=== PATIENT | male | born 1945 | race Caucasian/White ===

== ENCOUNTER → 2016-10-09 | Outpatient (REF) | payer OTHER, MEDICARE, BC ==
[~2016-10-09] MED LIST: /DULO30CA OR; /OXYC15TA OR; /WARF4TA OR; ALPR0.5T3 OR; ASPI81TA83 OR; B12 OR; CARV3.12 PO; COZA50TA18 OR; DOCU10ELUD PO; ENDO7.5T7 PO; ENDOCET OR; GABA300C2 PO; GABA600T3 OR; HYDR25TA6 OR; HYDR4TAB PO; IRON28TA OR; KLOR10TA OR; LIDO5DIS EX; LYRI75CA PO; METO50TA4 OR; MORPHINE IR PO; MULTIVIT OR; MULTIVIT PO; NEUR100C OR; OPAN10TA16 OR; OXCA150T OR; OXYC-208 PO; OXYC10TA12 OR; OXYC15TA11 PO; PERC7.5T12 PO; POTA20TA OR; SERT50TA2 OR; TIZA2CAP3 PO; TPS PAIN TOP; TPS cream TD; TRAM50TA2 OR; ULTR300T OR; VICO5TAB OR; VIT D 2000 OR; VITA100T5 OR; VITAD1000T PO; VYTO10TA5 OR; WARF1TAB OR; WARFPOW3 OR; [UNRECOGNIZED DRUG - CODE] PO; metroprolol OR
[2016-10-09 15:54] LABS: INR 2.81
== END | disposition home or self-care (01) ==
LOC: M LAB REF 15:28
PROVIDERS: ATTEND Internal Medicine Cardiovascular Disease
DX: I35.9 Nonrheumatic aortic valve disorder, unspecified (principal); Z79.01 Long term (current) use of anticoagulants

== ENCOUNTER → 2016-10-15 | Outpatient (REF) | payer OTHER, MEDICARE, BC ==
[2016-10-15 15:39] LABS: ALBUMIN 3.8 GM/DL (3.2-5.2); ALBUMIN/GLOBULIN RATIO 1.36 (1.00-1.93); ALKALINE PHOSPHATASE 89 U/L (45-117); ALT/SGPT 26 U/L (12-78); ANION GAP 6 MEQ/L (8-16); AST/SGOT 25 U/L (15-37); BILIRUBIN,TOTAL 0.5 MG/DL (0.2-1.0); BLOOD UREA NITROGEN 19 MG/DL (7-18); CALCIUM LEVEL 8.6 MG/DL (8.8-10.2); CARBON DIOXIDE LEVEL 33 MEQ/L (21-32); CHLORIDE LEVEL 104 MEQ/L (98-107); CHOLESTEROL LEVEL 113 MG/DL (<200); CREATININE FOR GFR 1.21 MG/DL (0.70-1.30); GLOMERULAR FILTRATION RATE > 60.0 (>42); GLUCOSE, FASTING 86 MG/DL (83-110); SODIUM LEVEL 143 MEQ/L (136-145); TOTAL PROTEIN 6.6 GM/DL (6.4-8.2); TRIGLYCERIDES LEVEL 110 MG/DL (<150)
[2016-10-15 15:48] LABS: BASO # 0.1 K/mm3 (0.0-0.2); BASO % 1.4 % (0.0-1.0); EOS # 0.4 K/mm3 (0.0-0.50); LARGE UNSTAINED CELL # 0.2 K/mm3 (0.0-0.4); LARGE UNSTAINED CELL % 2.1 % (0.0-4.0); LYMPH # 1.6 K/mm3 (1.5-4.5); LYMPH % 19.2 % (24.0-44.0); MEAN CORPUSCULAR HEMOGLOBIN 27.6 pg (27.0-33.0); MEAN CORPUSCULAR HGB CONC 32.9 g/dl (32.0-36.5); MONO # 0.6 K/mm3 (0.0-0.8); MONO % 8.3 % (0.0-5.0); NEUTROPHILS # 4.6 K/mm3 (1.8-7.7); PLATELET COUNT, AUTOMATED 167 k/mm3 (150-450); RED CELL DISTRIBUTION WIDTH 15.3 % (11.5-14.5); WHITE BLOOD COUNT 7.3 K/mm3 (4.0-10.0)
== END | disposition home or self-care (01) ==
LOC: M SFHCPLAZ 09:58
PROVIDERS: ATTEND Family Medicine
DX: N18.3 Chronic kidney disease, stage 3 (moderate) (principal); R73.01 Impaired fasting glucose; E55.9 Vitamin D deficiency, unspecified

== ENCOUNTER → 2016-11-13 | Outpatient (REF) | payer OTHER, MEDICARE, BC ==
[2016-11-13 15:59] LABS: INR 2.62
== END ==
LOC: M LAB REF 15:31
PROVIDERS: ATTEND Internal Medicine Cardiovascular Disease

== ENCOUNTER 2016-12-12 14:27 | Outpatient (RCR) | payer OTHER, MEDICARE, BC | END 2016-12-13 | LOC: M PT 14:27 | PROVIDERS: ATTEND Family Medicine | DX: Z51.89 Encounter for other specified aftercare (principal); B02.29 Other postherpetic nervous system involvement | CPT/HCPCS: 97010; 97110; 97161; G0283; G8984; G8985 ==

== ENCOUNTER 2016-12-15 10:28 | Emergency (ER) | payer BC, OTHER, MEDICARE ==
[~2016-12-15] VITALS: Ht 170.2 cm; Wt 86.2 kg
[2016-12-15] MEDS ORDERED: AMBI5TAB PO (10:41)
[2016-12-15] MEDS ORDERED: TUMS500C PO (10:41)
[2016-12-15] MEDS ORDERED: ALPR2TAB3 PO (10:41)
[2016-12-15] MEDS ORDERED: NS 500 ML IV ONE (11:30)
[2016-12-15 11:49] LABS: BASO # 0.1 K/mm3 (0.0-0.2); BASO % 0.6 % (0.0-1.0); EOS # 0.4 K/mm3 (0.0-0.50); EOS % 4.3 % (0.0-3.0); LARGE UNSTAINED CELL # 0.1 K/mm3 (0.0-0.4); LARGE UNSTAINED CELL % 1.3 % (0.0-4.0); LYMPH # 1.8 K/mm3 (1.5-4.5); LYMPH % 18.5 % (24.0-44.0); MEAN CORPUSCULAR HEMOGLOBIN 28.1 pg (27.0-33.0); MEAN CORPUSCULAR HGB CONC 33.6 g/dl (32.0-36.5); MEAN CORPUSCULAR VOLUME 83.8 fl (80.0-96.0); MONO # 0.6 K/mm3 (0.0-0.8); NEUTROPHILS # 6.1 K/mm3 (1.8-7.7); NEUTROPHILS % 68.2 % (36.0-66.0); PLATELET COUNT, AUTOMATED 188 k/mm3 (150-450); RED CELL DISTRIBUTION WIDTH 14.4 % (11.5-14.5)
[2016-12-15 11:55] LABS: INR 2.68
[2016-12-15 12:08] LABS: ALBUMIN 3.8 GM/DL (3.2-5.2); ALKALINE PHOSPHATASE 96 U/L (45-117); ALT/SGPT 25 U/L (12-78); ANION GAP 3 MEQ/L (8-16); AST/SGOT 27 U/L (15-37); BILIRUBIN,DIRECT 0.1 MG/DL (0.0-0.2); BILIRUBIN,TOTAL 0.6 MG/DL (0.2-1.0); BLOOD UREA NITROGEN 18 MG/DL (7-18); CALCIUM LEVEL 8.5 MG/DL (8.8-10.2); CARBON DIOXIDE LEVEL 34 MEQ/L (21-32); CHLORIDE LEVEL 102 MEQ/L (98-107); CREATININE FOR GFR 1.23 MG/DL (0.70-1.30); GLOMERULAR FILTRATION RATE > 60.0 (>42); GLUCOSE, FASTING 102 MG/DL (83-110); POTASSIUM SERUM 3.9 MEQ/L (3.5-5.1); SODIUM LEVEL 139 MEQ/L (136-145); TOTAL PROTEIN 7.6 GM/DL (6.4-8.2)
[2016-12-15] MEDS ORDERED: ISOVUE-370 76% 100ML VIAL (Q9967) As Ordered ONE (12:21)
--- NOTE | 2016-12-15 13:15 | REP ---
Clinical: Diffuse abdominal pain. Technique: Axial contrast enhanced images from the lung bases to the pubic symphysis using 100 ml Isovue 370 intravenous contrast material with coronal and sagittal re-formations. Findings: Lung bases demonstrate mild chronic changes and bronchiectasis. Liver, spleen, pancreas, bilateral adrenal glands and kidneys are essentially normal. Subcentimeter hepatic and 1 cm left renal simple cysts identified. Cholelithiasis noted without CT evidence for acute cholecystitis. The enteric system is without obstruction or acute inflammatory process. Few scattered sigmoid diverticula noted without acute diverticulitis. Normal terminal ileum and appendix identified in the right lower quadrant. Pelvis demonstrates normal bladder and prominent prostate gland. A solitary 1.8 cm left pelvic sidewall lymph node is suggested (image 114). No ascites. No further significant adenopathy. No mass lesion. Abdominal aorta and vasculature demonstrates atherosclerotic changes without aneurysm or dissection. Musculoskeletal structures without focal osseous abnormality. Impression: No obvious acute intra-abdominal or pelvic pathology. Cholelithiasis without evidence for acute cholecystitis. . Scattered sigmoid diverticula without acute diverticulitis. 1.8 cm left pelvic sidewall lymph node. Prominent prostate gland. Signed by Wilson Amador MD 12/15/2016 01:06 P
[2016-12-15] MEDS ORDERED: PROT1TAB2 PO (14:01)
[2016-12-15 14:05] VITALS: BP 156/67
--- NOTE | 2016-12-16 09:56 | ED PDOC ---
Post-Departure Follow-Up radiology report faxed to Swetha Avendano MD Dec 16, 2016 09:56
== END 2016-12-15 14:12 | disposition home or self-care (01) ==
LOC: M ED 11:20
DX: K21.9 Gastro-esophageal reflux disease without esophagitis (principal); K57.30 Diverticulosis of large intestine without perforation or abscess without bleeding; R59.9 Enlarged lymph nodes, unspecified; G89.29 Other chronic pain; R10.9 Unspecified abdominal pain; I10 Essential (primary) hypertension; Z79.01 Long term (current) use of anticoagulants; Z79.82 Long term (current) use of aspirin
CPT/HCPCS: 74177; 80048; 80076; 81001; 83690; 85025; 85610; 96360; 96361; 99283; Q9967

== ENCOUNTER → 2016-12-18 | Outpatient (REF) | payer BC, OTHER, MEDICARE ==
[~2016-12-18] MED LIST changes: +ALPR2TAB3 PO; +AMBI5TAB PO; +PROT1TAB2 PO; +TUMS500C PO
[2016-12-18 16:54] LABS: INR 2.6
== END ==
LOC: M LAB REF 15:59
PROVIDERS: ATTEND Internal Medicine Cardiovascular Disease
DX: Z51.81 Encounter for therapeutic drug level monitoring (principal); Z79.01 Long term (current) use of anticoagulants; I35.9 Nonrheumatic aortic valve disorder, unspecified

== ENCOUNTER → 2016-12-20 | Outpatient (REF) | payer OTHER | LOC: M SFHCPLAZ 10:42 | PROVIDERS: ATTEND Family Medicine | DX: R19.7 Diarrhea, unspecified (principal) ==

== ENCOUNTER 2017-01-09 11:37 | Outpatient (RCR) | payer OTHER, MEDICARE, BC | END 2017-01-12 | disposition home or self-care (01) | LOC: M PT 11:37 | PROVIDERS: ATTEND Family Medicine | DX: Z51.89 Encounter for other specified aftercare (principal); B02.29 Other postherpetic nervous system involvement | CPT/HCPCS: 97110; 97140; G0283 ==

== ENCOUNTER → 2017-01-17 | Outpatient (REF) | payer OTHER, MEDICARE, BC | LOC: M SFHCPLAZ 11:34 | PROVIDERS: ATTEND Physician Assistant Medical | DX: R30.0 Dysuria (principal) ==

== ENCOUNTER → 2017-01-17 | Outpatient (REF) | payer OTHER, MEDICARE, BC ==
[2017-01-17 17:08] LABS: CALCIUM LEVEL 7.6 MG/DL (8.8-10.2); CREATININE FOR GFR 1.36 MG/DL (0.70-1.30); GLOMERULAR FILTRATION RATE 54.8 (>42); POTASSIUM SERUM 3.9 MEQ/L (3.5-5.1)
[2017-01-17 17:13] LABS: BASO % 0.5 % (0.0-1.0); EOS # 0.3 K/mm3 (0.0-0.50); EOS % 3.7 % (0.0-3.0); LARGE UNSTAINED CELL # 0.2 K/mm3 (0.0-0.4); LYMPH # 1.5 K/mm3 (1.5-4.5); LYMPH % 19.9 % (24.0-44.0); MEAN CORPUSCULAR HGB CONC 33.4 g/dl (32.0-36.5); MEAN CORPUSCULAR VOLUME 86.8 fl (80.0-96.0); MONO # 0.6 K/mm3 (0.0-0.8); MONO % 8.1 % (0.0-5.0); NEUTROPHILS % 65.8 % (36.0-66.0); PLATELET COUNT, AUTOMATED 183 k/mm3 (150-450); WHITE BLOOD COUNT 7.6 K/mm3 (4.0-10.0)
== END ==
LOC: M SFHCPLAZ 15:08
PROVIDERS: ATTEND Physician Assistant Medical
DX: R30.0 Dysuria (principal)

== ENCOUNTER → 2017-01-17 | Outpatient (CLI) | payer BC, MEDICARE ==
--- NOTE | 2017-01-18 09:47 | REP ---
CT ABDOMEN AND PELVIS WITHOUT IV CONTRAST: CT abdomen and pelvis performed without IV contrast. Sagittal and coronal reconstruction images are performed. Comparison made with prior study with contrast 12/15/2016. Visualized lung bases demonstrate mild fibrotic changes. The liver demonstrates a few tiny cysts in the dome of the liver. Several gallstones are seen in a contracted gallbladder without CT evidence of acute cholecystitis. There may be a tiny 3 mm stone in the distal common bile duct, but the common bile duct itself does not appear to be significantly dilated. Maximum diameter is estimated to be 6 mm. Spleen, adrenals, pancreas and kidneys appear unremarkable. No renal or ureteral calculus is seen and there is no hydroureteronephrosis. There is ectasia of the abdominal aorta with tortuosity and moderate atherosclerotic calcification. There is no aneurysm. There is no adenopathy. There is no free air or free fluid. No bowel wall thickening is seen. There is no evidence of appendicitis. I see no pelvic mass. Metallic prosthesis is noted of the right hip. There is a mildly enlarged left pelvic sidewall lymph node as seen on prior CT measuring 1.3 cm in short axis dimension. IMPRESSION: Gallstones in a contracted gallbladder, which does not appear to be inflamed. I suspect a 3 mm stone in the distal common bile duct but there does not appear to be biliary dilatation. Slightly enlarged left pelvic lymph node. Sigmoid diverticulosis without diverticulitis. No renal or ureteral calculus and no hydroureteronephrosis. No evidence of appendicitis. Signed by Derrick Yoder MD 01/21/2017 03:59 P
== END ==
LOC: M RAD 15:42
PROVIDERS: ATTEND Physician Assistant Medical
DX: R10.9 Unspecified abdominal pain (principal); K80.20 Calculus of gallbladder without cholecystitis without obstruction; K57.30 Diverticulosis of large intestine without perforation or abscess without bleeding; R59.0 Localized enlarged lymph nodes

== ENCOUNTER → 2017-01-20 | Outpatient (REF) | payer OTHER, MEDICARE, BC ==
[2017-01-20 16:32] LABS: ALBUMIN 3.8 GM/DL (3.2-5.2); ALBUMIN/GLOBULIN RATIO 1.19 (1.00-1.93); ALKALINE PHOSPHATASE 84 U/L (45-117); ALT/SGPT 29 U/L (12-78); ANION GAP 9 MEQ/L (8-16); AST/SGOT 29 U/L (15-37); BILIRUBIN,TOTAL 0.7 MG/DL (0.2-1.0); BLOOD UREA NITROGEN 17 MG/DL (7-18); CALCIUM LEVEL 8.2 MG/DL (8.8-10.2); CARBON DIOXIDE LEVEL 29 MEQ/L (21-32); CHLORIDE LEVEL 102 MEQ/L (98-107); CREATININE FOR GFR 1.24 MG/DL (0.70-1.30); GLOMERULAR FILTRATION RATE > 60.0 (>42); GLUCOSE, FASTING 123 MG/DL (83-110); POTASSIUM SERUM 3.6 MEQ/L (3.5-5.1); SODIUM LEVEL 140 MEQ/L (136-145)
== END ==
LOC: M SFHCPLAZ 13:59
PROVIDERS: ATTEND Physician Assistant Medical
DX: K80.50 Calculus of bile duct without cholangitis or cholecystitis without obstruction (principal); N41.0 Acute prostatitis
CPT/HCPCS: 36415; 80053; G0103

== ENCOUNTER → 2017-01-22 | Outpatient (REF) | payer OTHER, MEDICARE, BC ==
[2017-01-22 16:02] LABS: INR 3.37
== END ==
LOC: M LABDRWSH 15:29
PROVIDERS: ATTEND Internal Medicine Cardiovascular Disease
DX: I35.9 Nonrheumatic aortic valve disorder, unspecified (principal)

== ENCOUNTER → 2017-02-06 | Outpatient (REF) | payer OTHER, MEDICARE, BC | LOC: M SFHCPLAZ 17:04 | PROVIDERS: ATTEND Physician Assistant Medical | DX: R30.0 Dysuria (principal) ==

== ENCOUNTER → 2017-02-14 | Outpatient (REF) | payer OTHER | LOC: M SMT 12:56 | PROVIDERS: ATTEND Nurse Practitioner Family | DX: R31.9 Hematuria, unspecified (principal) ==

== ENCOUNTER → 2017-02-17 | Outpatient (REF) | payer OTHER, MEDICARE, BC ==
[2017-02-17 18:20] LABS: INR 2.28
== END ==
LOC: M LABDRWSH 16:40
PROVIDERS: ATTEND Physician Assistant
DX: I35.9 Nonrheumatic aortic valve disorder, unspecified (principal)

== ENCOUNTER 2017-03-01 14:52 | Emergency (ER) | payer BC, MEDICARE ==
[~2017-03-01] VITALS: Ht 170.2 cm; Wt 83.6 kg
[2017-03-01] MEDS ORDERED: LOSA50TA20 (15:24)
[2017-03-01] MEDS ORDERED: LEVO500T3 (15:24)
[2017-03-01] MEDS ORDERED: BUPR75TA5 (15:24)
[2017-03-01] MEDS ORDERED: LEVO750T13 (15:24)
[2017-03-01] MEDS ORDERED: NS 1,000 ML IV ONE (16:00)
[2017-03-01 16:23] LABS: BASO % 0.4 % (0.0-1.0); EOS # 0.3 K/mm3 (0.0-0.50); EOS % 3.8 % (0.0-3.0); LARGE UNSTAINED CELL # 0.1 K/mm3 (0.0-0.4); LARGE UNSTAINED CELL % 1.5 % (0.0-4.0); LYMPH # 1.8 K/mm3 (1.5-4.5); LYMPH % 19.7 % (24.0-44.0); MEAN CORPUSCULAR HEMOGLOBIN 28.6 pg (27.0-33.0); MEAN CORPUSCULAR HGB CONC 34.6 g/dl (32.0-36.5); MEAN CORPUSCULAR VOLUME 82.5 fl (80.0-96.0); MONO # 0.7 K/mm3 (0.0-0.8); MONO % 7.7 % (0.0-5.0); NEUTROPHILS # 5.8 K/mm3 (1.8-7.7); PLATELET COUNT, AUTOMATED 179 k/mm3 (150-450); WHITE BLOOD COUNT 8.6 K/mm3 (4.0-10.0)
[2017-03-01 16:35] LABS: INR 2.75
[2017-03-01 16:53] LABS: ALBUMIN 3.9 GM/DL (3.2-5.2); ALBUMIN/GLOBULIN RATIO 1.18 (1.00-1.93); ALKALINE PHOSPHATASE 89 U/L (45-117); ALT/SGPT 20 U/L (12-78); ANION GAP 5 MEQ/L (8-16); AST/SGOT 24 U/L (15-37); BILIRUBIN,DIRECT 0.2 MG/DL (0.0-0.2); BILIRUBIN,TOTAL 0.7 MG/DL (0.2-1.0); BLOOD UREA NITROGEN 17 MG/DL (7-18); CARBON DIOXIDE LEVEL 32 MEQ/L (21-32); CHLORIDE LEVEL 103 MEQ/L (98-107); CREATININE FOR GFR 1.14 MG/DL (0.70-1.30); GLOMERULAR FILTRATION RATE > 60.0 (>42); GLUCOSE, FASTING 78 MG/DL (83-110); POTASSIUM SERUM 3.5 MEQ/L (3.5-5.1); SODIUM LEVEL 140 MEQ/L (136-145); TOTAL PROTEIN 7.2 GM/DL (6.4-8.2)
[2017-03-01 17:23] LABS: ERYTHROCYTE SEDIMENTATION RATE 28 mm/hr (0-20)
[2017-03-01] MEDS ORDERED: PYRI1TAB5 PO (17:55)
[2017-03-01 17:59] VITALS: BP 156/82
--- NOTE | 2017-03-01 19:51 | ECGEPIP ---
Stationary ECG Study [facility] - ED Test Date: 2017-03-01 Pat Name: SCOTT MARTÍNEZ Department: Room: - Gender: M Table Worker Packager: BERONICA : [id number] Requested By: Ravindra Moe PA-C Order Number: [id number] Reading MD: Emily Shelley Measurements Intervals [place] Rate: 58 P: 42 [place]: 188 QRS: 32 QRSD: 93 T: 48 QT: 427 QTc: 420 Interpretive Statements SINUS BRADYCARDIA Right ventricular hypertrophy - POSSIBLE NO OLD ECG FOR COMPARISON Electronically Signed On 03-01-2017 19:50:47 EDT by Emily Shelley
[2017-04-11] MEDS ORDERED: COUM1TAB14 PO (08:21)
[2017-04-11] MEDS ORDERED: COUM6TAB PO (08:21)
[2017-04-11] MEDS ORDERED: ASPI1TAB PO (08:21)
[2017-04-11] MEDS ORDERED: COLA100C5 PO (08:21)
[2017-04-11] MEDS ORDERED: CARV6.25 PO (08:21)
[2017-04-11] MEDS ORDERED: SERT-138 PO (08:21)
[2017-04-11] MEDS ORDERED: HYDR25TAB PO (08:21)
[2017-04-11] MEDS ORDERED: LIDO3CRE14 EX (08:21)
[2017-04-11] MEDS ORDERED: VYTO10TA29 PO (08:21)
[2017-04-11] MEDS ORDERED: LIDO5TD TD (08:21)
[2017-04-11] MEDS ORDERED: GAS-80CH PO (08:22)
[2017-04-11] MEDS ORDERED: HEARTAB PO (08:22)
== END 2017-03-01 18:03 | disposition home or self-care (01) ==
LOC: M ED 15:49
DX: R42 Dizziness and giddiness (principal); R30.0 Dysuria; I10 Essential (primary) hypertension; F41.9 Anxiety disorder, unspecified; Z95.2 Presence of prosthetic heart valve; Z79.01 Long term (current) use of anticoagulants; Z79.82 Long term (current) use of aspirin; Z79.899 Other long term (current) drug therapy; Z88.8 Allergy status to other drugs, medicaments and biological substances

== ENCOUNTER → 2017-03-28 | Outpatient (REF) | payer OTHER, MEDICARE, BC ==
[~2017-03-28] MED LIST changes: +ALPR0.5T3 PO; +ASPI1TAB PO; +BUPR75TA5; +BUPR75TA5 PO; +CARV6.25 PO; +COLA100C5 PO; +COUM1TAB14 PO; +COUM6TAB PO; +DRIS50002 PO; +FLUO1CRE4 TOP; +GAS-80CH PO; +HEARTAB PO; +HYDR25TAB PO; +LEVO500T3; +LEVO750T13; +LIDO3CRE14 EX; +LIDO5TD TD; +LOSA50TA20; +LOSA50TA20 PO; +POTA20TA PO; +PYRI1TAB5 PO; +RANI75TA9 PO; +SENN1TAB10 PO; +SERT-138 PO; +SIME80TA PO; +VYTO10TA29 PO; +ZOLP5TAB PO; +[UNRECOGNIZED DRUG - OTHER] TOP
[2017-03-28 17:51] LABS: INR 3.08
== END ==
LOC: M LABDRWSH 15:54
PROVIDERS: ATTEND Nurse Practitioner Family
DX: I35.9 Nonrheumatic aortic valve disorder, unspecified (principal)

== ENCOUNTER 2017-04-22 14:57 | Inpatient (IN) | payer BC, OTHER, MEDICARE ==
[~2017-04-22] VITALS: Ht 170.2 cm; Wt 82.6 kg
[~2017-04-22 14:57] MED LIST changes: -ALPR0.5T3 PO; -BUPR75TA5 PO; -DRIS50002 PO; -FLUO1CRE4 TOP; -LOSA50TA20 PO; -POTA20TA PO; -RANI75TA9 PO; -SENN1TAB10 PO; -SIME80TA PO; -ZOLP5TAB PO; -[UNRECOGNIZED DRUG - OTHER] TOP
[2017-04-22] MEDS ORDERED: HEPARIN DRIP 25,000 UNITS in APPROPRIATE DILUENT 1 EA IV SCH (16:05)
[2017-04-22] MEDS ORDERED: HEPARIN SOD (PORCINE) 5000 UNITS/ML VIAL IV PRN (16:15)
[2017-04-22] MEDS ORDERED: ONDANSETRON 4MG/2ML VIAL (J2405) IV PRN (16:15)
[2017-04-22 17:43] LABS: BASO % 0.3 % (0.0-1.0); EOS # 0.3 K/mm3 (0.0-0.50); LARGE UNSTAINED CELL # 0.1 K/mm3 (0.0-0.4); LARGE UNSTAINED CELL % 1.7 % (0.0-4.0); LYMPH # 1.9 K/mm3 (1.5-4.5); LYMPH % 24.9 % (24.0-44.0); MEAN CORPUSCULAR HEMOGLOBIN 29.1 pg (27.0-33.0); MEAN CORPUSCULAR HGB CONC 34.9 g/dl (32.0-36.5); MEAN CORPUSCULAR VOLUME 83.5 fl (80.0-96.0); MONO # 0.6 K/mm3 (0.0-0.8); MONO % 7.6 % (0.0-5.0); NEUTROPHILS # 4.5 K/mm3 (1.8-7.7); NEUTROPHILS % 61.6 % (36.0-66.0); PLATELET COUNT, AUTOMATED 145 k/mm3 (150-450); RED CELL DISTRIBUTION WIDTH 14.9 % (11.5-14.5); WHITE BLOOD COUNT 7.3 K/mm3 (4.0-10.0)
[2017-04-22 17:44] LABS: INR 1.97
[2017-04-22 18:03] LABS: ALBUMIN 3.8 GM/DL (3.2-5.2); ALBUMIN/GLOBULIN RATIO 1.19 (1.00-1.93); ALKALINE PHOSPHATASE 89 U/L (45-117); ALT/SGPT 21 U/L (12-78); ANION GAP 4 MEQ/L (8-16); AST/SGOT 19 U/L (15-37); BILIRUBIN,TOTAL 0.7 MG/DL (0.2-1.0); BLOOD UREA NITROGEN 22 MG/DL (7-18); CALCIUM LEVEL 8.4 MG/DL (8.8-10.2); CARBON DIOXIDE LEVEL 32 MEQ/L (21-32); CHLORIDE LEVEL 105 MEQ/L (98-107); CREATININE FOR GFR 1.18 MG/DL (0.70-1.30); GLOMERULAR FILTRATION RATE > 60.0 (>42); GLUCOSE, FASTING 101 MG/DL (83-110); MAGNESIUM LEVEL 2.4 MG/DL (1.8-2.4); POTASSIUM SERUM 3.9 MEQ/L (3.5-5.1); SODIUM LEVEL 141 MEQ/L (136-145)
[2017-04-22] MEDS ORDERED: BUPR75TA5 PO (18:36)
[2017-04-22] MEDS ORDERED: ALPR0.5T3 PO (18:36)
[2017-04-22] MEDS ORDERED: TUMS500C PO (18:36)
[2017-04-22] MEDS ORDERED: ASPI1TAB PO (18:36)
[2017-04-22] MEDS ORDERED: HYDR25TAB PO (18:36)
[2017-04-22] MEDS ORDERED: LIDO5TD TD (18:36)
[2017-04-22] MEDS ORDERED: CARV3.12 PO (18:36)
[2017-04-22] MEDS ORDERED: HYDR4TAB PO (18:36)
[2017-04-22] MEDS ORDERED: DRIS50002 PO (18:41)
[2017-04-22] MEDS ORDERED: SERT-138 PO (18:41)
[2017-04-22] MEDS ORDERED: SENN1TAB10 PO (18:41)
[2017-04-22] MEDS ORDERED: LOSA50TA20 PO (18:41)
[2017-04-22] MEDS ORDERED: SIME80TA PO (18:41)
[2017-04-22] MEDS ORDERED: FLUO1CRE4 TOP (18:41)
[2017-04-22] MEDS ORDERED: RANI75TA9 PO (18:41)
[2017-04-22] MEDS ORDERED: VYTO10TA29 PO (18:41)
[2017-04-22] MEDS ORDERED: [UNRECOGNIZED DRUG - OTHER] TOP (18:41)
[2017-04-22] MEDS ORDERED: COUM1TAB14 PO (18:45)
[2017-04-22] MEDS ORDERED: COUM6TAB PO (18:45)
[2017-04-22] MEDS ORDERED: ZOLP5TAB PO (18:45)
[2017-04-22] MEDS ORDERED: POTA20TA PO (18:49)
[2017-04-22] MEDS: **NOTE PATIENT COMMENT** MISC XX SCH (21:00)
[2017-04-22] MEDS: buPROPion 75 MG TAB PO SCH (21:00)
[2017-04-22] MEDS: SERTRALINE 100 MG TAB PO SCH (21:58)
[2017-04-22] MEDS: SIMVASTATIN 40 MG TAB PO SCH (21:58)
[2017-04-22] MEDS: CALCIUM CARBONATE 500 MG CHEW U/D PO SCH (21:58)
[2017-04-22 22:00] VITALS: BP 135/65
[2017-04-22] MEDS: CARVedilol 3.125 MG TAB PO SCH (22:00)
[2017-04-22] MEDS: EZETIMIBE 10 MG TAB (ZETIA) PO SCH (22:01)
[2017-04-22] MEDS: zolPIDEM TARTRATE 5 MG TAB PO PRN (22:15)
[2017-04-22] MEDS: SENNA 8.6 MG TAB (SENOKOT) PO PRN (22:17)
[2017-04-22] MEDS: HEPARIN DRIP 25,000 UNITS in APPROPRIATE DILUENT 1 EA IV SCH (22:19)
[2017-04-23 04:57] LABS: BASO % 0.5 % (0.0-1.0); EOS # 0.2 K/mm3 (0.0-0.50); LARGE UNSTAINED CELL # 0.1 K/mm3 (0.0-0.4); LARGE UNSTAINED CELL % 2.2 % (0.0-4.0); LYMPH # 1.7 K/mm3 (1.5-4.5); LYMPH % 27.3 % (24.0-44.0); MEAN CORPUSCULAR HEMOGLOBIN 28.4 pg (27.0-33.0); MEAN CORPUSCULAR HGB CONC 34.2 g/dl (32.0-36.5); MEAN CORPUSCULAR VOLUME 83.2 fl (80.0-96.0); MONO # 0.5 K/mm3 (0.0-0.8); MONO % 8.4 % (0.0-5.0); NEUTROPHILS # 3.4 K/mm3 (1.8-7.7); NEUTROPHILS % 57.6 % (36.0-66.0); PLATELET COUNT, AUTOMATED 122 k/mm3 (150-450); WHITE BLOOD COUNT 5.8 K/mm3 (4.0-10.0)
[2017-04-23 05:12] LABS: INR 1.84
[2017-04-23 05:21] LABS: ALBUMIN 3.3 GM/DL (3.2-5.2); ALBUMIN/GLOBULIN RATIO 1.14 (1.00-1.93); ALKALINE PHOSPHATASE 74 U/L (45-117); ALT/SGPT 18 U/L (12-78); ANION GAP 5 MEQ/L (8-16); AST/SGOT 19 U/L (15-37); BILIRUBIN,TOTAL 0.6 MG/DL (0.2-1.0); BLOOD UREA NITROGEN 20 MG/DL (7-18); CARBON DIOXIDE LEVEL 32 MEQ/L (21-32); CHLORIDE LEVEL 107 MEQ/L (98-107); CREATININE FOR GFR 0.99 MG/DL (0.70-1.30); GLOMERULAR FILTRATION RATE > 60.0 (>42); GLUCOSE, FASTING 94 MG/DL (83-110); POTASSIUM SERUM 3.7 MEQ/L (3.5-5.1); SODIUM LEVEL 144 MEQ/L (136-145); TOTAL PROTEIN 6.2 GM/DL (6.4-8.2)
[2017-04-23 06:00] VITALS: BP 130/67
[2017-04-23] MEDS: hydroCHLOROthiazide 12.5 MG CAPSULE PO SCH (08:53)
[2017-04-23] MEDS: HYDROmorphone (DILAUDID) 4 MG TAB PO PRN ×2 (08:53→13:48)
[2017-04-23] MEDS: CARVedilol 3.125 MG TAB PO SCH ×2 (08:53→21:22)
[2017-04-23] MEDS: LOSARTAN 50 MG TAB PO SCH (08:54)
[2017-04-23] MEDS: POTASSIUM CHLORIDE 10 MEQ SR TABLET PO SCH (08:55)
[2017-04-23] MEDS: buPROPion 75 MG TAB PO SCH ×2 (08:55→21:21)
[2017-04-23] MEDS: CALCIUM CARBONATE 500 MG CHEW U/D PO SCH ×3 (08:55→21:22)
[2017-04-23] MEDS: LIDOCAINE 5% (LIDODERM) PATCH TD SCH (08:56)
[2017-04-23] MEDS: raNITIdine SYRUP 150 MG/10 ML UDC PO SCH (09:00)
--- NOTE | 2017-04-23 11:40 | IPNPDOC ---
Subjective Date Seen The patient was seen on 04/23/17. Subjective Chief Complaint/HPI The patient is a 71-year-old male admitted with a reason for visit of Bridge Therapy For Procedure. Events since last encounter Pt denies any issues. Denies CP, SOB, Abd pain. Constitutional: Denies: Chills, Fever Pulmonary: Denies: Dyspnea Cardiovascular: Denies: Chest Pain Gastrointestinal: Denies: Abdominal Pain Objective Physical Examination General Exam: Positive: Alert, No Acute Distress Neck Exam: Positive: Supple, Negative: JVD Chest Exam: Positive: Clear to auscultation Heart Exam: Positive: Rate Normal, Regular Rhythm Abdomen Exam: Positive: Normal bowel sounds, Soft, Negative: Tenderness Extremity Exam: Negative: Edema Psych Exam: Positive: Mental status NL Assessment /Plan Problems (1) Bladder tumor Status: Acute Problem Specific Plan: Consult Specialist, Monitor Clinically, Repeat Labs Problem Text: Pt admitted for bridge therapy with heparin. Coumadin held. Dr Sommer consulted and plans to take to OR on Friday. (2) H/O mechanical aortic valve replacement Status: Chronic Problem Specific Plan: Monitor Clinically Problem Text: Pt is on warfarin as outpt. Warfarin is currently held and patient is on heparin for bridge therapy in anticipation of surgery on Friday with Dr Sommer. (3) HTN (hypertension) Status: Chronic Problem Specific Plan: Monitor Clinically Problem Text: On HCTZ, Cozaar, Coreg. (4) Anxiety Status: Chronic Problem Specific Plan: Monitor Clinically Problem Text: On Zoloft and as needed Xanax. (5) Depression Status: Chronic Problem Specific Plan: Monitor Clinically Problem Text: On Zoloft and Wellbutrin. (6) GERD (gastroesophageal reflux disease) Status: Chronic Problem Specific Plan: Monitor Clinically Problem Text: On Zantac. (7) CKD (chronic kidney disease), stage III Status: Chronic Problem Specific Plan: Monitor Clinically (8) Anemia Status: Chronic Problem Specific Plan: Monitor Clinically Plan/VTE VTE Prophylaxis Ordered?: Yes VS, I&O, 24H, Fishbone Vital Signs/I&O Vital Signs Date Time Temp Pulse Resp B/P (MAP) Pulse Ox O2 Delivery O2 Flow Rate FiO2 04/23/17 09:23 18 04/23/17 08:53 56 130/67 04/23/17 08:53 Room Air 04/23/17 06:00 98.6 98 I&O- Last 24 Hours up to 6 AM 04/23/17 05:59 Intake Total 140 ml Output Total 0 ml Balance 140 ml Laboratory Data 24H LABS Laboratory Tests 2 04/22/17 17:21: White Blood Count 7.3, Red Blood Count 3.98L, Hemoglobin 11.6L, Hematocrit 33.2L , Mean Corpuscular Volume 83.5, Mean Corpuscular Hemoglobin 29.1, Mean Corpuscular Hemoglobin Concent 34.9, Red Cell Distribution Width 14.9H, Platelet Count 145L, Neutrophils (%) (Auto) 61.6, Lymphocytes (%) (Auto) 24.9, Monocytes (%) (Auto) 7.6H, Eosinophils (%) (Auto) 4.0H, Basophils (%) (Auto) 0.3 , Neutrophils # (Auto) 4.5, Lymphocytes # (Auto) 1.9, Monocytes # (Auto) 0.6, Eosinophils # (Auto) 0.3, Basophils # (Auto) 0.0, Large Unclassified Cells % 1.7 , Large Unclassified Cells # 0.1, Prothrombin Time 23.1H, Prothromb Time International Ratio 1.97, Activated Partial Thromboplast Time 49.6H, Anion Gap 4L, Glomerular Filtration Rate > 60.0, Blood Urea Nitrogen 22H, Creatinine 1.18 , Sodium Level 141, Potassium Level 3.9, Chloride Level 105, Carbon Dioxide Level 32, Calcium Level 8.4L, Aspartate Amino Transf (AST/SGOT) 19, Alanine Aminotransferase (ALT/SGPT) 21, Alkaline Phosphatase 89, Total Bilirubin 0.7, Total Protein 7.0, Albumin 3.8, Magnesium Level 2.4, Albumin/Globulin Ratio 1.19 04/23/17 04:27: White Blood Count 5.8, Red Blood Count 3.88L, Hemoglobin 11.0L, Hematocrit 32.2L , Mean Corpuscular Volume 83.2, Mean Corpuscular Hemoglobin 28.4, Mean Corpuscular Hemoglobin Concent 34.2, Red Cell Distribution Width 15.0H, Platelet Count 122L, Neutrophils (%) (Auto) 57.6, Lymphocytes (%) (Auto) 27.3, Monocytes (%) (Auto) 8.4H, Eosinophils (%) (Auto) 4.0H, Basophils (%) (Auto) 0.5 , Neutrophils # (Auto) 3.4, Lymphocytes # (Auto) 1.7, Monocytes # (Auto) 0.5, Eosinophils # (Auto) 0.2, Basophils # (Auto) 0.0, Large Unclassified Cells % 2.2 , Large Unclassified Cells # 0.1, Prothrombin Time 21.8H, Prothromb Time International Ratio 1.84, Activated Partial Thromboplast Time 228.9*H, Anion Gap 5L, Glomerular Filtration Rate > 60.0, Blood Urea Nitrogen 20H, Creatinine 0.99, Sodium Level 144, Potassium Level 3.7, Chloride Level 107, Carbon Dioxide Level 32, Calcium Level 8.0L, Aspartate Amino Transf (AST/SGOT) 19, Alanine Aminotransferase (ALT/SGPT) 18, Alkaline Phosphatase 74, Total Bilirubin 0.6, Total Protein 6.2L, Albumin 3.3, Albumin/Globulin Ratio 1.14 CBC/BMP Laboratory Tests 04/22/17 17:21 Red Blood Count 3.98 L, Mean Corpuscular Volume 83.5, Mean Corpuscular Hemoglobin 29.1, Mean Corpuscular Hemoglobin Concent 34.9, Red Cell Distribution Width 14.9 H, Neutrophils (%) (Auto) 61.6, Lymphocytes (%) (Auto) 24.9, Monocytes (%) (Auto) 7.6 H, Eosinophils (%) (Auto) 4.0 H, Basophils (%) ( Auto) 0.3, Neutrophils # (Auto) 4.5, Lymphocytes # (Auto) 1.9, Monocytes # (Auto ) 0.6, Eosinophils # (Auto) 0.3, Basophils # (Auto) 0.0, Calcium Level 8.4 L, Aspartate Amino Transf (AST/SGOT) 19, Alanine Aminotransferase (ALT/SGPT) 21, Alkaline Phosphatase 89, Total Bilirubin 0.7, Total Protein 7.0, Albumin 3.8 04/23/17 04:27 Red Blood Count 3.88 L, Mean Corpuscular Volume 83.2, Mean Corpuscular Hemoglobin 28.4, Mean Corpuscular Hemoglobin Concent 34.2, Red Cell Distribution Width 15.0 H, Neutrophils (%) (Auto) 57.6, Lymphocytes (%) (Auto) 27.3, Monocytes (%) (Auto) 8.4 H, Eosinophils (%) (Auto) 4.0 H, Basophils (%) ( Auto) 0.5, Neutrophils # (Auto) 3.4, Lymphocytes # (Auto) 1.7, Monocytes # (Auto ) 0.5, Eosinophils # (Auto) 0.2, Basophils # (Auto) 0.0, Calcium Level 8.0 L, Aspartate Amino Transf (AST/SGOT) 19, Alanine Aminotransferase (ALT/SGPT) 18, Alkaline Phosphatase 74, Total Bilirubin 0.6, Total Protein 6.2 L, Albumin 3.3 Nakul Arroyo RPA-C Apr 23, 2017 11:40
--- NOTE | 2017-04-23 17:26 | REP ---
In the right upper lobe there is a new tiny 8 mm sized nodular density. Basilar fibrotic changes are noted status quo. The cardiomediastinal silhouette is unchanged. Note is again made of previous median sternotomy and aortic valvular replacement. The osseous structures are stable and intact. IMPRESSION: Subtle but distinguishable new right upper lobe nodule. CT examination of the chest is warranted so it can be compared to the prior chest CT of 01/14/03. Signed by Shawn Mendez DO 04/23/2017 05:46 P
[2017-04-23] MEDS: HEPARIN DRIP 25,000 UNITS in APPROPRIATE DILUENT 1 EA IV SCH (19:03)
[2017-04-23] MEDS: **NOTE PATIENT COMMENT** MISC XX SCH (21:00)
[2017-04-23] MEDS: SIMVASTATIN 40 MG TAB PO SCH (21:19)
[2017-04-23] MEDS: EZETIMIBE 10 MG TAB (ZETIA) PO SCH (21:19)
[2017-04-23] MEDS: SERTRALINE 100 MG TAB PO SCH (21:19)
[2017-04-23] MEDS: zolPIDEM TARTRATE 5 MG TAB PO PRN (21:22)
[2017-04-23] MEDS: SENNA 8.6 MG TAB (SENOKOT) PO PRN (21:30)
[2017-04-23 22:00] VITALS: BP 140/64
[2017-04-24 06:00] VITALS: BP 111/59
[2017-04-24 07:23] LABS: BASO % 0.7 % (0.0-1.0); EOS # 0.2 K/mm3 (0.0-0.50); EOS % 3.7 % (0.0-3.0); LARGE UNSTAINED CELL # 0.1 K/mm3 (0.0-0.4); LARGE UNSTAINED CELL % 1.9 % (0.0-4.0); LYMPH # 1.3 K/mm3 (1.5-4.5); LYMPH % 22.4 % (24.0-44.0); MEAN CORPUSCULAR HEMOGLOBIN 28.2 pg (27.0-33.0); MEAN CORPUSCULAR HGB CONC 33.4 g/dl (32.0-36.5); MEAN CORPUSCULAR VOLUME 84.3 fl (80.0-96.0); MONO # 0.5 K/mm3 (0.0-0.8); MONO % 8.9 % (0.0-5.0); NEUTROPHILS # 3.4 K/mm3 (1.8-7.7); NEUTROPHILS % 62.3 % (36.0-66.0); PLATELET COUNT, AUTOMATED 128 k/mm3 (150-450); WHITE BLOOD COUNT 5.4 K/mm3 (4.0-10.0)
[2017-04-24 07:30] LABS: INR 1.35
[2017-04-24 07:45] LABS: ALBUMIN 3.5 GM/DL (3.2-5.2); ALBUMIN/GLOBULIN RATIO 0.97 (1.00-1.93); ALKALINE PHOSPHATASE 87 U/L (45-117); ALT/SGPT 21 U/L (12-78); ANION GAP 4 MEQ/L (8-16); AST/SGOT 19 U/L (15-37); BILIRUBIN,TOTAL 0.7 MG/DL (0.2-1.0); BLOOD UREA NITROGEN 17 MG/DL (7-18); CARBON DIOXIDE LEVEL 32 MEQ/L (21-32); CHLORIDE LEVEL 105 MEQ/L (98-107); GLOMERULAR FILTRATION RATE > 60.0 (>42); GLUCOSE, FASTING 100 MG/DL (83-110); SODIUM LEVEL 141 MEQ/L (136-145); TOTAL PROTEIN 7.1 GM/DL (6.4-8.2)
[2017-04-24] MEDS: LOSARTAN 50 MG TAB PO SCH (08:23)
[2017-04-24] MEDS: CARVedilol 3.125 MG TAB PO SCH ×2 (08:23→21:52)
[2017-04-24] MEDS: CALCIUM CARBONATE 500 MG CHEW U/D PO SCH ×3 (08:25→21:53)
[2017-04-24] MEDS: HYDROmorphone (DILAUDID) 4 MG TAB PO PRN ×3 (08:25→19:46)
[2017-04-24] MEDS: POTASSIUM CHLORIDE 10 MEQ SR TABLET PO SCH (08:26)
[2017-04-24] MEDS: buPROPion 75 MG TAB PO SCH ×2 (08:26→21:51)
[2017-04-24] MEDS: LIDOCAINE 5% (LIDODERM) PATCH TD SCH (08:26)
[2017-04-24] MEDS: raNITIdine SYRUP 150 MG/10 ML UDC PO SCH ×2 (08:27→12:43)
[2017-04-24] MEDS: hydroCHLOROthiazide 12.5 MG CAPSULE PO SCH (08:27)
--- NOTE | 2017-04-24 11:44 | IPNPDOC ---
Subjective Date Seen The patient was seen on 04/24/17. Subjective Chief Complaint/HPI The patient is a 71-year-old male admitted with a reason for visit of Bridge Therapy For Procedure. Events since last encounter Pt denies any new issues. Denies CP, SOB, Abd pain, Bleeding. Constitutional: Denies: Chills, Fever Pulmonary: Denies: Dyspnea Cardiovascular: Denies: Chest Pain Gastrointestinal: Denies: Abdominal Pain Objective Physical Examination General Exam: Positive: Alert, No Acute Distress Neck Exam: Positive: Supple, Negative: JVD Chest Exam: Positive: Clear to auscultation Heart Exam: Positive: Rate Normal, Regular Rhythm Abdomen Exam: Positive: Normal bowel sounds, Soft, Negative: Tenderness Extremity Exam: Negative: Edema Psych Exam: Positive: Mental status NL Assessment /Plan Problems (1) Bladder tumor Status: Acute Problem Specific Plan: Consult Specialist, Monitor Clinically, Repeat Labs Problem Text: Pt admitted for bridge therapy with heparin. Coumadin held. Dr Sommer consulted and plans to take to OR on Friday. (2) H/O mechanical aortic valve replacement Status: Chronic Problem Specific Plan: Monitor Clinically Problem Text: Pt is on warfarin as outpt. Warfarin is currently held and patient is on heparin for bridge therapy in anticipation of surgery on Friday with Dr Sommer. (3) HTN (hypertension) Status: Chronic Problem Specific Plan: Monitor Clinically Problem Text: On HCTZ, Cozaar, Coreg. (4) Anxiety Status: Chronic Problem Specific Plan: Monitor Clinically Problem Text: On Zoloft and as needed Xanax. (5) Depression Status: Chronic Problem Specific Plan: Monitor Clinically Problem Text: On Zoloft and Wellbutrin. (6) GERD (gastroesophageal reflux disease) Status: Chronic Problem Specific Plan: Monitor Clinically Problem Text: On Zantac. (7) CKD (chronic kidney disease), stage III Status: Chronic Problem Specific Plan: Monitor Clinically (8) Anemia Status: Chronic Problem Specific Plan: Monitor Clinically Plan/VTE VTE Prophylaxis Ordered?: Yes VS, I&O, 24H, Fishbone Vital Signs/I&O Vital Signs Date Time Temp Pulse Resp B/P (MAP) Pulse Ox O2 Delivery O2 Flow Rate FiO2 04/24/17 08:25 18 Room Air 04/24/17 08:23 118/62 04/24/17 06:00 98.3 59 98 I&O- Last 24 Hours up to 6 AM 8/10/17 06:00 Intake Total 140 ml Output Total 1300 ml Balance -1160 ml Laboratory Data 24H LABS Laboratory Tests 2 04/23/17 12:45: Activated Partial Thromboplast Time 114.6H 04/23/17 19:53: Activated Partial Thromboplast Time 69.7H 04/24/17 01:47: Activated Partial Thromboplast Time 70.7H 04/24/17 06:41: Activated Partial Thromboplast Time 66.3H, White Blood Count 5.4, Red Blood Count 4.08L, Hemoglobin 11.5L, Hematocrit 34.4L, Mean Corpuscular Volume 84.3, Mean Corpuscular Hemoglobin 28.2, Mean Corpuscular Hemoglobin Concent 33.4, Red Cell Distribution Width 15.0H, Platelet Count 128L, Neutrophils (%) (Auto) 62.3 , Lymphocytes (%) (Auto) 22.4L, Monocytes (%) (Auto) 8.9H, Eosinophils (%) (Auto ) 3.7H, Basophils (%) (Auto) 0.7, Neutrophils # (Auto) 3.4, Lymphocytes # (Auto ) 1.3L, Monocytes # (Auto) 0.5, Eosinophils # (Auto) 0.2, Basophils # (Auto) 0.0 , Large Unclassified Cells % 1.9, Large Unclassified Cells # 0.1, Prothrombin Time 17.0H, Prothromb Time International Ratio 1.35, Anion Gap 4L, Glomerular Filtration Rate > 60.0, Blood Urea Nitrogen 17, Creatinine 1.20, Sodium Level 141, Potassium Level 4.0, Chloride Level 105, Carbon Dioxide Level 32, Calcium Level 9.0, Aspartate Amino Transf (AST/SGOT) 19, Alanine Aminotransferase (ALT/ SGPT) 21, Alkaline Phosphatase 87, Total Bilirubin 0.7, Total Protein 7.1, Albumin 3.5, Albumin/Globulin Ratio 0.97L CBC/BMP Laboratory Tests 04/24/17 06:41 Red Blood Count 4.08 L, Mean Corpuscular Volume 84.3, Mean Corpuscular Hemoglobin 28.2, Mean Corpuscular Hemoglobin Concent 33.4, Red Cell Distribution Width 15.0 H, Neutrophils (%) (Auto) 62.3, Lymphocytes (%) (Auto) 22.4 L, Monocytes (%) (Auto) 8.9 H, Eosinophils (%) (Auto) 3.7 H, Basophils (%) (Auto) 0.7, Neutrophils # (Auto) 3.4, Lymphocytes # (Auto) 1.3 L, Monocytes # ( Auto) 0.5, Eosinophils # (Auto) 0.2, Basophils # (Auto) 0.0, Calcium Level 9.0, Aspartate Amino Transf (AST/SGOT) 19, Alanine Aminotransferase (ALT/SGPT) 21, Alkaline Phosphatase 87, Total Bilirubin 0.7, Total Protein 7.1, Albumin 3.5 Microbiology Microbiology 04/24/17 Stool Occult Blood (ELENI), Received Pending Nakul Arroyo Apr 24, 2017 11:44
[2017-04-24 14:00] VITALS: BP 114/62
[2017-04-24] MEDS: **NOTE PATIENT COMMENT** MISC XX SCH (21:00)
[2017-04-24] MEDS: EZETIMIBE 10 MG TAB (ZETIA) PO SCH (21:49)
[2017-04-24] MEDS: SIMVASTATIN 40 MG TAB PO SCH (21:51)
[2017-04-24] MEDS: SERTRALINE 100 MG TAB PO SCH (21:52)
[2017-04-24] MEDS: zolPIDEM TARTRATE 5 MG TAB PO PRN (21:53)
--- NOTE | 2017-04-25 07:22 | SMCUROLCON ---
Urology Consultation General Date of Consultation 04/25/17 Reason For Consultation This patient is seen for Bridge Therapy For Procedure. History of Present Illness This is a 71 y/o M w/ PMH significant for HTN, aortic aneurysm repair w/ mechanical AVR on Coumadin, atrial fibrillation, and hyperlipidemia presents, admitted to the hospital for bridge therapy prior to undergoing cystoscopy, TURBT, and possible left ureteral stent placement. He has been well since last seen. He has no voiding complaints. His heparin drip was stopped at 3am this morning. Past Medical History Medical History see HPI Surgical Hstory see HPI Medications Current Medications Current Medications Alprazolam (Xanax) 0.25 mg BIDP PRN PO ANXIETY/AGITATION; Start 04/22/17 at 16: 15; Stop 04/29/17 at 16:14 Bupropion HCl (Wellbutrin) 75 mg BID PO Last administered on 04/24/17 21:51; Start 04/22/17 at 21:00; Stop 05/22/17 at 20:59 Calcium Carbonate (Tums) 1,000 mg TID PO Last administered on 04/24/17 21:53; Start 04/22/17 at 21:00; Stop 05/22/17 at 20:59 Carvedilol (COReg) 3.125 mg BID PO Last administered on 04/24/17 21:52; Start 04/22/17 at 21:00; Stop 05/22/17 at 20:59 Docusate Sodium (Colace) 100 mg DAILYPRN PRN PO CONSTIPATION; Start 04/22/17 at 16:15; Stop 05/22/17 at 16:14 EZETIMIBE (Zetia) 10 mg QHS PO Last administered on 04/24/17 21:49; Start 04/22 at 21:00; Stop 05/22/17 at 20:59 Heparin Sodium (Porcine) (Heparin) ASDIRECTED PRN IV SEE LABEL COMMENTS; Start 04/22/17 at 16:15; Stop 04/25/17 at 03:00; Status DC Heparin Sodium (Porcine) 01075 units/IV Miscellaneous Supplies 250 ml @ 0 mls/ hr Q0M IV Last administered on 04/23/17 19:03; Start 04/22/17 at 16:05; Stop 08/01 at 03:00; Status DC Heparin Sodium (Porcine) 85656 units/IV Miscellaneous Supplies 250 ml @ 0 mls/ hr Q0M IV ; Start 04/22/17 at 16:05; Stop 04/22/17 at 16:34; Status DC Home Med (Med Rec Complete!) ASDIRECTED XX ; Start 04/22/17 at 19:00; Stop at 19:11; Status DC Hydrochlorothiazide (Hydrodiuril) 12.5 mg DAILY PO Last administered on 08:27; Start 04/23/17 at 09:00; Stop 05/23/17 at 08:59 Hydromorphone HCl (Dilaudid) 4 mg Q4HP PRN PO PAIN Last administered on 19:46; Start 04/22/17 at 19:30; Stop 04/29/17 at 19:29 Hydromorphone HCl (Dilaudid) 6 mg Q4HP PRN PO SEVERE PAIN (PS 8-10) Last administered on 04/24/17 08:25; Start 04/22/17 at 16:15; Stop 04/29/17 at 16:14 Lidocaine (Lidoderm Patch) 1 patch DAILY TD Last administered on 04/24/17 08: 26; Start 04/23/17 at 09:00; Stop 05/23/17 at 08:59 Losartan Potassium (Cozaar) 50 mg DAILY PO Last administered on 04/24/17 08:23 ; Start 04/23/17 at 09:00; Stop 05/23/17 at 08:59 Non-Formulary Medication ( See Comment Field Below ) REMOVE LIDODERM PATCH DAILY@21 XX Last administered on 04/24/17 21:00; Start 04/22/17 at 21:00; Stop 05/22/17 at 20:59 Non-Formulary Medication ( See Comment Field Below ) REMOVE LIDODERM PATCH DAILY@21 XX Last administered on 04/24/17 21:00; Start 04/22/17 at 21:00; Stop 05/22/17 at 20:59 Non-Formulary Medication (Heparin Iv Rate Change Documentation ml/ Hr) ASDIRECTED XX Last administered on 04/23/17 13:40; Start 04/22/17 at 16:15; Stop 04/25/17 at 03:00; Status DC Ondansetron HCl (ZOFRAN INJection) 4 mg Q6HP PRN IV NAUSEA OR VOMITING; Start 04/22/17 at 16:15; Stop 05/22/17 at 16:14 Potassium Chloride (Micro-K Extencaps) 20 meq DAILY PO Last administered on 08:26; Start 04/23/17 at 09:00; Stop 05/23/17 at 08:59 Ranitidine HCl (Zantac) 150 mg DAILY PO Last administered on 04/24/17 12:43; Start 04/23/17 at 09:00; Stop 05/23/17 at 08:59 Senna (Senokot) 1 tab Q12HP PRN PO CONSTIPATION Last administered on 04/23/17 21:30; Start 04/22/17 at 16:15; Stop 05/22/17 at 16:14 Sertraline HCl (Zoloft) 100 mg DAILY@2100 PO Last administered on 04/24/17 21: 52; Start 04/22/17 at 21:00; Stop 05/22/17 at 20:59 Simvastatin (Zocor) 80 mg QHS PO Last administered on 04/24/17 21:51; Start at 21:00; Stop 05/22/17 at 20:59 Zolpidem Tartrate (Ambien) 5 mg QHSP PRN PO INSOMNIA Last administered on 21:53; Start 04/22/17 at 16:15; Stop 04/29/17 at 16:14 Allergies Allergies: Coded Allergies: Pregabalin (Verified Adverse Reaction, Intermediate, DRY MOUTH AND TOOTH DECAY, 04/11/17) Review of Systems Constitutional: Denies: Fever, Chills, Sweats, Weakness, Malaise Eyes: Denies: Pain, Vision change ENT: Denies: Head Aches, Sore Throat, Epistaxis Pulmonary: Denies: Dyspnea, Cough Cardiovascular: Denies Chest Pain, Denies Palpitations Gastrointestinal: Denies: Nausea, Vomiting, Abdominal Pain Genitourinary: Denies: Dysuria, Frequency, Incontinence, Hematuria Musculoskeletal: Denies: Neck Pain, Back Pain Neurological: Denies: Weakness, Numbness, Incoordination, Change in Speech Psych: Reports: Mood Normal Physical Examination General Exam: Alert, No Acute Distress ENT EXAM: Atraumatic Chest Exam: Clear to auscultation Heart Exam: Rate Normal Abdomen Exam: Soft Skin Exam: Nl turgor and temperature Neuro Exam: Normal Speech Psych Exam: Mental status NL, Mood NL Vital Signs/I&O Vital Signs Date Time Temp Pulse Resp B/P (MAP) Pulse Ox O2 Delivery O2 Flow Rate FiO2 04/24/17 21:52 63 136/60 04/24/17 20:16 17 04/24/17 14:00 98.5 98 Room Air I&O- Last 24 Hours up to 6 AM 04/25/17 06:00 Intake Total 360 ml Balance 360 ml Laboratory Data 24H Labs Laboratory Tests 2 04/25/17 06:51: Microbiology Microbiology 04/24/17 Stool Occult Blood (ELENI) - Final, Complete Assessment This is a 71 y/o M w/ multiple bladder tumors. Plan - OR today for cysto, TURBT, possible left ureteral stent placement - depending on amount of resection, patient might be able to resume anticoagulation on Friday - should be ok to discharge home after his procedure today if ok w/ medicine service - he will f/u w/ me in clinic next week for pathology results and catheter removal (if one is left in surgery today) CONSUELO FRANCISCO MD Apr 25, 2017 07:22
[2017-04-25 07:26] LABS: ALBUMIN 3.5 GM/DL (3.2-5.2); ALBUMIN/GLOBULIN RATIO 0.97 (1.00-1.93); ALKALINE PHOSPHATASE 87 U/L (45-117); ALT/SGPT 22 U/L (12-78); ANION GAP 8 MEQ/L (8-16); AST/SGOT 23 U/L (15-37); BILIRUBIN,TOTAL 0.6 MG/DL (0.2-1.0); BLOOD UREA NITROGEN 20 MG/DL (7-18); CARBON DIOXIDE LEVEL 28 MEQ/L (21-32); CHLORIDE LEVEL 106 MEQ/L (98-107); CREATININE FOR GFR 1.14 MG/DL (0.70-1.30); GLOMERULAR FILTRATION RATE > 60.0 (>42); GLUCOSE, FASTING 100 MG/DL (83-110); POTASSIUM SERUM 4.2 MEQ/L (3.5-5.1); SODIUM LEVEL 142 MEQ/L (136-145); TOTAL PROTEIN 7.1 GM/DL (6.4-8.2)
[2017-04-25] MEDS: LIDOCAINE 5% (LIDODERM) PATCH TD SCH (07:28)
[2017-04-25 07:31] LABS: MEAN CORPUSCULAR VOLUME 84.5 fl (80.0-96.0); WHITE BLOOD COUNT 5.1 K/mm3 (4.0-10.0)
[2017-04-25 07:32] LABS: BASO % 0.5 % (0.0-1.0); EOS % 2.9 % (0.0-3.0); LARGE UNSTAINED CELL % 2.2 % (0.0-4.0); LYMPH % 19.9 % (24.0-44.0); MEAN CORPUSCULAR HEMOGLOBIN 29.4 pg (27.0-33.0); MEAN CORPUSCULAR HGB CONC 34.8 g/dl (32.0-36.5); MONO % 8.2 % (0.0-5.0); NEUTROPHILS # 3.4 K/mm3 (1.8-7.7); NEUTROPHILS % 66.2 % (36.0-66.0); PLATELET COUNT, AUTOMATED 145 k/mm3 (150-450); RED CELL DISTRIBUTION WIDTH 14.6 % (11.5-14.5)
[2017-04-25 07:33] LABS: EOS # 0.2 K/mm3 (0.0-0.50); LARGE UNSTAINED CELL # 0.1 K/mm3 (0.0-0.4); MONO # 0.4 K/mm3 (0.0-0.8)
[2017-04-25 07:38] LABS: INR 1.24
[2017-04-25] MEDS ORDERED: ceFAZolin 2 GM/D5W 50 ML IV BAG (J0690) IV ONE (08:20)
[2017-04-25] MEDS ORDERED: CONRAY-60 60% 50ML VIAL (Q9961) XX ONE (08:21)
--- NOTE | 2017-04-25 08:56 | REP ---
Three intraoperative fluoroscopic views are performed during retrograde pyelography and left ureteral stent placement. Final film demonstrates the proximal and distal pigtails are in satisfactory locations. Fluoroscopic exposure time is 5 seconds. Fluoroscopic images are performed with last image hold technology. These images require no additional radiation. Signed by Derrick Chamorro MD 04/25/2017 08:48 A
[2017-04-25] MEDS: raNITIdine SYRUP 150 MG/10 ML UDC PO SCH (09:00)
[2017-04-25] MEDS: POTASSIUM CHLORIDE 10 MEQ SR TABLET PO SCH (09:00)
[2017-04-25] MEDS: CALCIUM CARBONATE 500 MG CHEW U/D PO SCH ×3 (09:00→21:34)
[2017-04-25] MEDS ORDERED: MEPERIDINE INJ 25 MG/ML VIAL (J2175) IV PRN (09:30)
[2017-04-25] MEDS ORDERED: METOCLOPRAMIDE INJ 10MG/2ML VIAL (J2765) IV PRN (09:30)
[2017-04-25] MEDS ORDERED: LR 1,000 ML IV SCH (09:30)
[2017-04-25] MEDS ORDERED: ONDANSETRON 4MG/2ML VIAL (J2405) IV PRN (09:30)
[2017-04-25] MEDS ORDERED: fentaNYL 100 MCG/2 ML INJECTION (J3010) IV PRN (09:30)
[2017-04-25] MEDS ORDERED: PERCOCET 5MG/325MG TAB PO PRN (09:30)
[2017-04-25] MEDS: hydroCHLOROthiazide 12.5 MG CAPSULE PO SCH (10:21)
[2017-04-25] MEDS: LOSARTAN 50 MG TAB PO SCH (10:21)
[2017-04-25] MEDS: HYDROmorphone (DILAUDID) 4 MG TAB PO PRN ×3 (10:21→21:33)
[2017-04-25] MEDS: buPROPion 75 MG TAB PO SCH ×2 (10:21→21:29)
[2017-04-25] MEDS: CARVedilol 3.125 MG TAB PO SCH ×2 (10:22→21:30)
[2017-04-25] MEDS: oxyBUTYnin 5 MG TAB PO PRN (12:20)
[2017-04-25] MEDS ORDERED: SENNA 8.6 MG TAB (SENOKOT) PO PRN (16:15)
[2017-04-25] MEDS: **NOTE PATIENT COMMENT** MISC XX SCH (21:00)
[2017-04-25] MEDS: SIMVASTATIN 40 MG TAB PO SCH (21:29)
[2017-04-25] MEDS: DOCUSATE SODIUM 100 MG CAP PO PRN (21:31)
[2017-04-25] MEDS: zolPIDEM TARTRATE 5 MG TAB PO PRN (21:32)
[2017-04-25] MEDS: EZETIMIBE 10 MG TAB (ZETIA) PO SCH (21:32)
[2017-04-25] MEDS: SERTRALINE 100 MG TAB PO SCH (21:32)
[2017-04-25 22:00] VITALS: BP 138/62
--- NOTE | 2017-04-25 23:50 | IPNPDOC ---
Subjective Date Seen The patient was seen on 04/25/17. Subjective Chief Complaint/HPI The patient is a 71-year-old male admitted with a reason for visit of Bridge Therapy For Procedure. Events since last encounter Patient went to surgery this a.m. for transurethral resection of bladder tumor and placement of L ureteral stent. He notes constipation today, and expected his senna to be a scheduled medication, not a prn one (he has not been asking for it.) Constitutional: Denies: Chills, Fever Skin: Denies: Rash Pulmonary: Denies: Dyspnea, Cough Cardiovascular: Denies: Chest Pain Gastrointestinal: Reports: Abdominal Pain (earlier today), Constipation, Denies: Nausea, Vomiting, Diarrhea Hematologic: Denies: Bleeding Excessively Objective Physical Examination General Exam: Positive: Alert, No Acute Distress ENT Exam: Positive: Atraumatic Neck Exam: Positive: Supple, Negative: JVD Chest Exam: Positive: Clear to auscultation Heart Exam: Positive: Rate Normal, Regular Rhythm Abdomen Exam: Positive: Normal bowel sounds, Soft, Negative: Tenderness Extremity Exam: Negative: Edema Psych Exam: Positive: Mental status NL Assessment /Plan Problems (1) Bladder tumor Status: Acute Problem Specific Plan: Consult Specialist, Monitor Clinically, Repeat Labs Problem Text: 04/25 -- patient went to surgery earlier today. Catheter in place. Pt admitted for bridge therapy with heparin. Coumadin held. Dr Sommer consulted and plans to take to OR on Friday. (2) H/O mechanical aortic valve replacement Status: Chronic Problem Specific Plan: Monitor Clinically Problem Text: 04/25 - Not to restart heparin until Friday, and start it without a bolus (just restarting at the previous rate.) Pt is on warfarin as outpt. Warfarin is currently held and patient is on heparin for bridge therapy in anticipation of surgery on Friday with Dr Sommer. (3) HTN (hypertension) Status: Chronic Problem Specific Plan: Monitor Clinically Problem Text: On HCTZ, Cozaar, Coreg. (4) Anxiety Status: Chronic Problem Specific Plan: Monitor Clinically Problem Text: On Zoloft and as needed Xanax. (5) Depression Status: Chronic Problem Specific Plan: Monitor Clinically Problem Text: On Zoloft and Wellbutrin. (6) GERD (gastroesophageal reflux disease) Status: Chronic Problem Specific Plan: Monitor Clinically Problem Text: On Zantac. (7) CKD (chronic kidney disease), stage III Status: Chronic Problem Specific Plan: Monitor Clinically (8) Anemia Status: Chronic Problem Specific Plan: Monitor Clinically (9) Constipation Plan/VTE VTE Prophylaxis Ordered?: Yes Plan/Urinary Catheter Urinary Catheter: Place Mario (already laced) Reason for insertion/continuin: Perioperative VS, I&O, 24H, Fishbone Vital Signs/I&O Vital Signs Date Time Temp Pulse Resp B/P (MAP) Pulse Ox O2 Delivery O2 Flow Rate FiO2 04/25/17 22:03 17 04/25/17 21:30 77 138/62 04/25/17 09:26 97.5 95 Room Air I&O- Last 24 Hours up to 6 AM 04/25/17 05:59 Intake Total 380 ml Output Total 300 ml Balance 80 ml Laboratory Data 24H LABS Laboratory Tests 2 04/25/17 06:51: White Blood Count 5.1, Red Blood Count 4.24L, Hemoglobin 12.5L, Hematocrit 35.8L , Mean Corpuscular Volume 84.5, Mean Corpuscular Hemoglobin 29.4, Mean Corpuscular Hemoglobin Concent 34.8, Red Cell Distribution Width 14.6H, Platelet Count 145L, Neutrophils (%) (Auto) 66.2H, Lymphocytes (%) (Auto) 19.9L , Monocytes (%) (Auto) 8.2H, Eosinophils (%) (Auto) 2.9, Basophils (%) (Auto) 0.5, Neutrophils # (Auto) 3.4, Lymphocytes # (Auto) 1.0L, Monocytes # (Auto) 0.4 , Eosinophils # (Auto) 0.2, Basophils # (Auto) 0.0, Large Unclassified Cells % 2.2, Large Unclassified Cells # 0.1, Prothrombin Time 15.8H, Prothromb Time International Ratio 1.24, Activated Partial Thromboplast Time 36.1, Anion Gap 8 , Glomerular Filtration Rate > 60.0, Blood Urea Nitrogen 20H, Creatinine 1.14, Sodium Level 142, Potassium Level 4.2, Chloride Level 106, Carbon Dioxide Level 28, Calcium Level 9.0, Aspartate Amino Transf (AST/SGOT) 23, Alanine Aminotransferase (ALT/SGPT) 22, Alkaline Phosphatase 87, Total Bilirubin 0.6, Total Protein 7.1, Albumin 3.5, Albumin/Globulin Ratio 0.97L CBC/BMP Laboratory Tests 04/25/17 06:51 Red Blood Count 4.24 L, Mean Corpuscular Volume 84.5, Mean Corpuscular Hemoglobin 29.4, Mean Corpuscular Hemoglobin Concent 34.8, Red Cell Distribution Width 14.6 H, Neutrophils (%) (Auto) 66.2 H, Lymphocytes (%) (Auto ) 19.9 L, Monocytes (%) (Auto) 8.2 H, Eosinophils (%) (Auto) 2.9, Basophils (%) (Auto) 0.5, Neutrophils # (Auto) 3.4, Lymphocytes # (Auto) 1.0 L, Monocytes # ( Auto) 0.4, Eosinophils # (Auto) 0.2, Basophils # (Auto) 0.0, Calcium Level 9.0, Aspartate Amino Transf (AST/SGOT) 23, Alanine Aminotransferase (ALT/SGPT) 22, Alkaline Phosphatase 87, Total Bilirubin 0.6, Total Protein 7.1, Albumin 3.5 Microbiology Microbiology 04/24/17 Stool Occult Blood (ELENI) - Final, Complete MIKAEL SIMENTAL DO Apr 25, 2017 23:50
[2017-04-26] MEDS: HYDROmorphone (DILAUDID) 4 MG TAB PO PRN ×4 (05:40→23:30)
[2017-04-26 06:00] VITALS: BP 130/60
[2017-04-26 06:37] LABS: BASO % 0.1 % (0.0-1.0); EOS # 0.1 K/mm3 (0.0-0.50); LARGE UNSTAINED CELL # 0.2 K/mm3 (0.0-0.4); LARGE UNSTAINED CELL % 1.5 % (0.0-4.0); LYMPH # 1.7 K/mm3 (1.5-4.5); LYMPH % 13.1 % (24.0-44.0); MEAN CORPUSCULAR HEMOGLOBIN 28.4 pg (27.0-33.0); MEAN CORPUSCULAR HGB CONC 33.7 g/dl (32.0-36.5); MEAN CORPUSCULAR VOLUME 84.2 fl (80.0-96.0); MONO # 0.9 K/mm3 (0.0-0.8); MONO % 7.5 % (0.0-5.0); NEUTROPHILS # 8.8 K/mm3 (1.8-7.7); NEUTROPHILS % 76.8 % (36.0-66.0); PLATELET COUNT, AUTOMATED 155 k/mm3 (150-450); RED CELL DISTRIBUTION WIDTH 15.2 % (11.5-14.5); WHITE BLOOD COUNT 11.4 K/mm3 (4.0-10.0)
[2017-04-26 06:43] LABS: INR 1.1
[2017-04-26 07:09] LABS: ALBUMIN 3.7 GM/DL (3.2-5.2); ALBUMIN/GLOBULIN RATIO 1.12 (1.00-1.93); BILIRUBIN,TOTAL 0.8 MG/DL (0.2-1.0); CALCIUM LEVEL 9.6 MG/DL (8.8-10.2); CREATININE FOR GFR 1.34 MG/DL (0.70-1.30); GLOMERULAR FILTRATION RATE 55.8 (>42); POTASSIUM SERUM 4.5 MEQ/L (3.5-5.1)
[2017-04-26 08:00] VITALS: BP 134/66
[2017-04-26 08:10] VITALS: BP 134/66
--- NOTE | 2017-04-26 08:12 | RO ---
DATE OF PROCEDURE: 04/25/2017 PREPROCEDURE DIAGNOSIS: Bladder tumor. POSTPROCEDURE DIAGNOSIS: Bladder tumor. PROCEDURE: Cystoscopy, transurethral resection of bladder tumor (between 2 and 5 cm), left retrograde pyelogram with intraoperative interpretation of images, left ureteral stent placement, examination underneath anesthesia. SURGEON: Chris Sommer MD [employer] OPERATOR: None. ANESTHESIA: General. OPERATIVE INDICATIONS: 71-year-old male who was found to have a few papillary tumors over the left ureteral orifice on recent office cystoscopy. It was recommended that be brought to the operating room today for the above listed procedure. DESCRIPTION OF PROCEDURE: The patient was brought to the operating room where general anesthesia was induced. Prophylactic antibiotics was infused. He was then placed in the dorsal lithotomy position and a bimanual rectal examination under anesthesia was performed. It was negative for palpable bladder masses and the bladder was freely mobile. There were no prostate nodules. The patient was then prepped and draped in the usual sterile fashion. At this point, a cystoscope was inserted into the urethral meatus and advanced into the bladder. The bladder was then thoroughly examined and the only abnormalities seen were the papillary tumor on the left ureteral orifice. We then inserted the resectoscope and the tumor was then resected completely using a resectoscope, making sure that I sampled the muscle layer for pathologic analysis. After that was done, all the tumors were removed from the bladder. Hemostasis was obtained using cautery. Since I was so close to the ureteral orifice, the decision was made to place a stent. At this point, an open ended ureteral catheter was advanced up the left collecting system. A retrograde pyelogram was performed and was negative for extravasation or hydronephrosis. I then advanced the wire up the left collecting system and removed the ureteral catheter. After that point, I advanced a 6 [place] x 22-32 cm JJ ureteral stent up the left collecting system over the wire. The wire was then removed and there were adequate curls of the stent in the left renal pelvis and the bladder. After this was done, I confirmed hemostasis once again, and then the resectoscope was removed. An #18-[place] Mario catheter was inserted into the bladder and the balloon was filled with 10 mL of sterile water. The catheter was connected to gravity drainage. This marked conclusion of the procedure. The patient was taken out of dorsal lithotomy position, awakened from anesthesia and transported to the recovery room in stable condition. ESTIMATED BLOOD LOSS: 0 mL. COMPLICATIONS: None. SPECIMENS: Bladder tumor. PLAN: The patient will followup in the clinic with me in about 1 week for catheter removal and pathology results. I will remove the stent in approximately 2 weeks. PAULOD
[2017-04-26] MEDS: LOSARTAN 50 MG TAB PO SCH (09:06)
[2017-04-26] MEDS: CALCIUM CARBONATE 500 MG CHEW U/D PO SCH ×3 (09:06→20:20)
[2017-04-26] MEDS: hydroCHLOROthiazide 12.5 MG CAPSULE PO SCH (09:07)
[2017-04-26] MEDS: POTASSIUM CHLORIDE 10 MEQ SR TABLET PO SCH (09:07)
[2017-04-26] MEDS: buPROPion 75 MG TAB PO SCH ×2 (09:07→20:19)
[2017-04-26] MEDS: CARVedilol 3.125 MG TAB PO SCH ×2 (09:07→20:19)
[2017-04-26] MEDS: raNITIdine SYRUP 150 MG/10 ML UDC PO SCH (09:08)
[2017-04-26] MEDS: SENNA 8.6 MG TAB (SENOKOT) PO SCH (09:08)
[2017-04-26] MEDS: LIDOCAINE 5% (LIDODERM) PATCH TD SCH (09:08)
--- NOTE | 2017-04-26 11:15 | IPNPDOC ---
Subjective Date Seen The patient was seen on 04/26/17. Subjective Chief Complaint/HPI The patient is a 71-year-old male admitted with a reason for visit of Bridge Therapy For Procedure. Events since last encounter Per uro note 04/25, pt could be discharged home, but nursing notes that he has been having significant hematuria today. Additionally, addendum to Dr. Sommer' s note indicates they would like to keep in hosp until back on anticoagulants to monitor for bleeding. Supposed to restart anticoag on Sun night for mechanical heart valve. States he is having diff stooling today and is having some abdominal distension. Also feels a little light headed. Denies chest pain or pressure, or diff breathing. Constitutional: Denies: Chills, Fever Skin: Denies: Rash Pulmonary: Denies: Dyspnea, Cough Cardiovascular: Denies: Chest Pain, Palpitations Gastrointestinal: Reports: Abdominal Pain (mild suprapubic pain), Constipation , Denies: Nausea, Vomiting, Diarrhea Genitourinary: Reports: Hematuria Psych: Reports: Anxiety Other systems 10- pt ROS otherwise negative Objective Physical Examination General Exam: Positive: Alert, No Acute Distress ENT Exam: Positive: Atraumatic Neck Exam: Positive: Supple, Negative: JVD Chest Exam: Positive: Clear to auscultation Heart Exam: Positive: Rate Normal, Regular Rhythm Abdomen Exam: Positive: Normal bowel sounds, Soft, Negative: Tenderness Extremity Exam: Negative: Edema Psych Exam: Positive: Mental status NL Other physical findings Mraio draining bright red urine Assessment /Plan Problems (1) Bladder tumor Status: Acute Problem Specific Plan: Consult Specialist, Monitor Clinically, Repeat Labs Problem Text: 04/26: POD1 from TURBT. Having bleeding, currently off coumadin. [facility] 04/[facility] -- patient went to surgery earlier today. Catheter in place. Pt admitted for bridge therapy with heparin. Coumadin held. Dr Sommer consulted and plans to take to OR on Friday. (2) H/O mechanical aortic valve replacement Status: Chronic Problem Specific Plan: Monitor Clinically Problem Text: 04/26: Pt to restart heparin Sun without bolus and coumadin. Currently having worsening bleeding. Monitor H&H. 04/25 - Not to restart heparin until Friday, and start it without a bolus (just restarting at the previous rate.) Pt is on warfarin as outpt. Warfarin is currently held and patient is on heparin for bridge therapy in anticipation of surgery on Friday with Dr Sommer. (3) HTN (hypertension) Status: Chronic Problem Specific Plan: Monitor Clinically Problem Text: On HCTZ, Cozaar, Coreg. (4) Anxiety Status: Chronic Problem Specific Plan: Monitor Clinically Problem Text: On Zoloft and bupropion outpt; and as needed Xanax. -discussed having pt review meds with PCP as bupropion often worsens anxiety (5) Depression Status: Chronic Problem Specific Plan: Monitor Clinically Problem Text: On Zoloft and Wellbutrin. (6) GERD (gastroesophageal reflux disease) Status: Chronic Problem Specific Plan: Monitor Clinically Problem Text: On Zantac. (7) CKD (chronic kidney disease), stage III Status: Chronic Problem Specific Plan: Monitor Clinically (8) Anemia Status: Chronic Problem Specific Plan: Monitor Clinically Problem Text: Stable (9) Constipation Status: Acute Problem Text: BID stool softener and PRN milk of mag and miralax to maintain soft stools Plan/VTE VTE Prophylaxis Ordered?: No (Post-op bleeding risk; to restart Sun) Plan/Urinary Catheter Urinary Catheter: Place Mario (already laced) Reason for insertion/continuin: Perioperative VS, I&O, 24H, Fishbone Vital Signs/I&O Vital Signs Date Time Temp Pulse Resp B/P (MAP) Pulse Ox O2 Delivery O2 Flow Rate FiO2 04/26/17 10:33 18 04/26/17 08:10 97.6 78 134/66 (88) 96 Room Air I&O- Last 24 Hours up to 6 AM 04/26/17 06:00 Intake Total 1100 ml Output Total 4100 ml Balance -3000 ml Laboratory Data 24H LABS Laboratory Tests 2 04/26/17 06:21: White Blood Count 11.4H, Red Blood Count 4.14L, Hemoglobin 11.8L, Hematocrit 34.9L, Mean Corpuscular Volume 84.2, Mean Corpuscular Hemoglobin 28.4, Mean Corpuscular Hemoglobin Concent 33.7, Red Cell Distribution Width 15.2H, Platelet Count 155, Neutrophils (%) (Auto) 76.8H, Lymphocytes (%) (Auto) 13.1L, Monocytes (%) (Auto) 7.5H, Eosinophils (%) (Auto) 1.0, Basophils (%) (Auto) 0.1 , Neutrophils # (Auto) 8.8H, Lymphocytes # (Auto) 1.7, Monocytes # (Auto) 0.9H, Eosinophils # (Auto) 0.1, Basophils # (Auto) 0.0, Large Unclassified Cells % 1.5 , Large Unclassified Cells # 0.2, Prothrombin Time 14.4, Prothromb Time International Ratio 1.10, Activated Partial Thromboplast Time 33.0, Anion Gap 7L , Glomerular Filtration Rate 55.8, Blood Urea Nitrogen 20H, Creatinine 1.34H, Sodium Level 142, Potassium Level 4.5, Chloride Level 103, Carbon Dioxide Level 32, Calcium Level 9.6, Aspartate Amino Transf (AST/SGOT) 21, Alanine Aminotransferase (ALT/SGPT) 22, Alkaline Phosphatase 88, Total Bilirubin 0.8, Total Protein 7.0, Albumin 3.7, Albumin/Globulin Ratio 1.12 CBC/BMP Laboratory Tests 04/26/17 06:21 Red Blood Count 4.14 L, Mean Corpuscular Volume 84.2, Mean Corpuscular Hemoglobin 28.4, Mean Corpuscular Hemoglobin Concent 33.7, Red Cell Distribution Width 15.2 H, Neutrophils (%) (Auto) 76.8 H, Lymphocytes (%) (Auto ) 13.1 L, Monocytes (%) (Auto) 7.5 H, Eosinophils (%) (Auto) 1.0, Basophils (%) (Auto) 0.1, Neutrophils # (Auto) 8.8 H, Lymphocytes # (Auto) 1.7, Monocytes # ( Auto) 0.9 H, Eosinophils # (Auto) 0.1, Basophils # (Auto) 0.0, Calcium Level 9.6 , Aspartate Amino Transf (AST/SGOT) 21, Alanine Aminotransferase (ALT/SGPT) 22, Alkaline Phosphatase 88, Total Bilirubin 0.8, Total Protein 7.0, Albumin 3.7 Microbiology Microbiology 04/24/17 Stool Occult Blood (ELENI) - Final, Complete TAYLER ABDI MD Apr 26, 2017 11:15
[2017-04-26] MEDS: SIMVASTATIN 40 MG TAB PO SCH (20:18)
[2017-04-26] MEDS: SERTRALINE 100 MG TAB PO SCH (20:19)
[2017-04-26] MEDS: EZETIMIBE 10 MG TAB (ZETIA) PO SCH (20:19)
[2017-04-26] MEDS: DOCUSATE SODIUM 100 MG CAP PO PRN (20:19)
[2017-04-26] MEDS: MIRALAX *UNIT DOSE* 17GM PACKET PO PRN (20:24)
[2017-04-26] MEDS: zolPIDEM TARTRATE 5 MG TAB PO PRN (20:33)
[2017-04-26] MEDS: **NOTE PATIENT COMMENT** MISC XX SCH (21:00)
[2017-04-26 22:00] VITALS: BP 143/79
[2017-04-27] MEDS: HYDROmorphone (DILAUDID) 4 MG TAB PO PRN ×4 (03:16→18:35)
[2017-04-27 06:00] VITALS: BP 128/60
[2017-04-27 06:20] LABS: BASO % 0.4 % (0.0-1.0); EOS # 0.3 K/mm3 (0.0-0.50); LARGE UNSTAINED CELL # 0.2 K/mm3 (0.0-0.4); LYMPH # 2.2 K/mm3 (1.5-4.5); LYMPH % 21.8 % (24.0-44.0); MEAN CORPUSCULAR HEMOGLOBIN 28.3 pg (27.0-33.0); MEAN CORPUSCULAR HGB CONC 33.3 g/dl (32.0-36.5); MEAN CORPUSCULAR VOLUME 85.2 fl (80.0-96.0); MONO # 0.7 K/mm3 (0.0-0.8); MONO % 7.3 % (0.0-5.0); NEUTROPHILS # 6.2 K/mm3 (1.8-7.7); NEUTROPHILS % 65.6 % (36.0-66.0); PLATELET COUNT, AUTOMATED 151 k/mm3 (150-450); RED CELL DISTRIBUTION WIDTH 15.3 % (11.5-14.5); WHITE BLOOD COUNT 9.4 K/mm3 (4.0-10.0)
[2017-04-27 06:24] LABS: INR 1.18
[2017-04-27 06:48] LABS: ALBUMIN 3.4 GM/DL (3.2-5.2); ALBUMIN/GLOBULIN RATIO 1.03 (1.00-1.93); ALKALINE PHOSPHATASE 78 U/L (45-117); ALT/SGPT 26 U/L (12-78); ANION GAP 6 MEQ/L (8-16); AST/SGOT 28 U/L (15-37); BILIRUBIN,TOTAL 0.6 MG/DL (0.2-1.0); BLOOD UREA NITROGEN 26 MG/DL (7-18); CARBON DIOXIDE LEVEL 31 MEQ/L (21-32); CHLORIDE LEVEL 104 MEQ/L (98-107); CREATININE FOR GFR 1.21 MG/DL (0.70-1.30); GLOMERULAR FILTRATION RATE > 60.0 (>42); GLUCOSE, FASTING 100 MG/DL (83-110); POTASSIUM SERUM 3.8 MEQ/L (3.5-5.1); SODIUM LEVEL 141 MEQ/L (136-145); TOTAL PROTEIN 6.7 GM/DL (6.4-8.2)
[2017-04-27] MEDS: raNITIdine SYRUP 150 MG/10 ML UDC PO SCH (09:00)
[2017-04-27] MEDS ORDERED: HEPARIN SOD (PORCINE) 5000 UNITS/ML VIAL IV PRN (09:45)
--- NOTE | 2017-04-27 09:59 | IPNPDOC ---
Subjective Date Seen The patient was seen on 04/27/17. Subjective Chief Complaint/HPI The patient is a 71-year-old male admitted with a reason for visit of Bridge Therapy For Procedure. Events since last encounter Pt reports improvement in bleeding. Pain better today. Walking around without dizziness. Cont to have anxiety. Constitutional: Denies: Chills, Fever Pulmonary: Denies: Dyspnea, Cough Cardiovascular: Denies: Chest Pain, Palpitations, Orthopnea Gastrointestinal: Reports: Constipation (Improved), Denies: Nausea, Vomiting, Abdominal Pain, Diarrhea Genitourinary: Reports: Hematuria (Improved) Psych: Reports: Anxiety Other systems 10-pt ROS otherwise negative Objective Physical Examination General Exam: Positive: Alert, No Acute Distress ENT Exam: Positive: Atraumatic Neck Exam: Positive: Supple, Negative: JVD Chest Exam: Positive: Clear to auscultation Heart Exam: Positive: Rate Normal, Regular Rhythm Abdomen Exam: Positive: Normal bowel sounds, Soft, Negative: Tenderness Extremity Exam: Negative: Edema Psych Exam: Positive: Mental status NL Other physical findings Mario draining red-orange urine Assessment /Plan Problems (1) Bladder tumor Status: Acute Problem Specific Plan: Consult Specialist, Monitor Clinically, Repeat Labs Problem Text: 04/27: POD2 from TURBT. Bleeding currently stopped and old blood in Mario, currently off coumadin. Will need to restart heparin and coumadin this evening for evening for mech heart valve. Per prior discussion with Dr. Malik and Dr. Sommer, will keep inpt until back on coumadin to monitor for bleeding, as they do not rec bolus heparin, which would preclude use of lovenox. - start hep gtt in PM - start coumadin in PM - Mario out at uro followup visit 04/26: POD1 from TURBT. Having bleeding, currently off coumadin. Will need to restart Sun evening for mech heart valve. 04/25 -- patient went to surgery earlier today. Catheter in place. Pt admitted for bridge therapy with heparin. Coumadin held. Dr Sommer consulted and plans to take to OR on Friday. (2) H/O mechanical aortic valve replacement Status: Chronic Problem Specific Plan: Monitor Clinically Problem Text: 04/26: Pt to restart heparin today without bolus and coumadin. Bleeding has stopped. No BRB in Mario. H&H stable. - hep gtt now, and coumadin to start this evening -AM INR 04/26: Pt to restart heparin Sun without bolus and coumadin. Currently having worsening bleeding. Monitor H&H. 04/25 - Not to restart heparin until Friday, and start it without a bolus (just restarting at the previous rate.) Pt is on warfarin as outpt. Warfarin is currently held and patient is on heparin for bridge therapy in anticipation of surgery on Friday with Dr Sommer. (3) HTN (hypertension) Status: Chronic Problem Specific Plan: Monitor Clinically Problem Text: On HCTZ, Cozaar, Coreg. (4) Anxiety Status: Chronic Problem Specific Plan: Monitor Clinically Problem Text: On Zoloft and bupropion outpt; and as needed Xanax. -discussed having pt review meds with PCP as bupropion often worsens anxiety (5) Depression Status: Chronic Problem Specific Plan: Monitor Clinically Problem Text: On Zoloft and Wellbutrin. (6) GERD (gastroesophageal reflux disease) Status: Chronic Problem Specific Plan: Monitor Clinically Problem Text: On Zantac. (7) CKD (chronic kidney disease), stage III Status: Chronic Problem Specific Plan: Monitor Clinically (8) Anemia Status: Chronic Problem Specific Plan: Monitor Clinically Problem Text: Stable (9) Constipation Status: Acute Problem Text: BID stool softener and PRN milk of mag and miralax to maintain soft stools Plan/VTE VTE Prophylaxis Ordered?: Yes (Post-op bleeding risk; to restart Sun) Plan/Urinary Catheter Urinary Catheter: Place Mario (already laced) Reason for insertion/continuin: Perioperative Disposition Pending stable H&H on re-starting coumadin & heparin VS, I&O, 24H, [place] Vital Signs/I&O Vital Signs Date Time Temp Pulse Resp B/P (MAP) Pulse Ox O2 Delivery O2 Flow Rate FiO2 04/27/17 06:00 97.8 59 18 128/60 (82) 94 Room Air I&O- Last 24 Hours up to 6 AM 04/27/17 06:00 Intake Total 1800 ml Output Total 3000 ml Balance -1200 ml Laboratory Data 24H LABS Laboratory Tests 2 04/27/17 06:01: White Blood Count 9.4, Red Blood Count 4.04L, Hemoglobin 11.5L, Hematocrit 34.4L , Mean Corpuscular Volume 85.2, Mean Corpuscular Hemoglobin 28.3, Mean Corpuscular Hemoglobin Concent 33.3, Red Cell Distribution Width 15.3H, Platelet Count 151, Neutrophils (%) (Auto) 65.6, Lymphocytes (%) (Auto) 21.8L, Monocytes (%) (Auto) 7.3H, Eosinophils (%) (Auto) 3.0, Basophils (%) (Auto) 0.4 , Neutrophils # (Auto) 6.2, Lymphocytes # (Auto) 2.2, Monocytes # (Auto) 0.7, Eosinophils # (Auto) 0.3, Basophils # (Auto) 0.0, Large Unclassified Cells % 2.0 , Large Unclassified Cells # 0.2, Prothrombin Time 15.2H, Prothromb Time International Ratio 1.18, Activated Partial Thromboplast Time 34.1, Anion Gap 6L , Glomerular Filtration Rate > 60.0, Blood Urea Nitrogen 26H, Creatinine 1.21, Sodium Level 141, Potassium Level 3.8, Chloride Level 104, Carbon Dioxide Level 31, Calcium Level 9.0, Aspartate Amino Transf (AST/SGOT) 28, Alanine Aminotransferase (ALT/SGPT) 26, Alkaline Phosphatase 78, Total Bilirubin 0.6, Total Protein 6.7, Albumin 3.4, Albumin/Globulin Ratio 1.03 CBC/BMP Laboratory Tests 04/27/17 06:01 Red Blood Count 4.04 L, Mean Corpuscular Volume 85.2, Mean Corpuscular Hemoglobin 28.3, Mean Corpuscular Hemoglobin Concent 33.3, Red Cell Distribution Width 15.3 H, Neutrophils (%) (Auto) 65.6, Lymphocytes (%) (Auto) 21.8 L, Monocytes (%) (Auto) 7.3 H, Eosinophils (%) (Auto) 3.0, Basophils (%) ( Auto) 0.4, Neutrophils # (Auto) 6.2, Lymphocytes # (Auto) 2.2, Monocytes # (Auto ) 0.7, Eosinophils # (Auto) 0.3, Basophils # (Auto) 0.0, Calcium Level 9.0, Aspartate Amino Transf (AST/SGOT) 28, Alanine Aminotransferase (ALT/SGPT) 26, Alkaline Phosphatase 78, Total Bilirubin 0.6, Total Protein 6.7, Albumin 3.4 Microbiology Microbiology 04/24/17 Stool Occult Blood (ELENI) - Final, Complete RAY,TAYLER Rayo. MD Apr 27, 2017 09:59
[2017-04-27] MEDS: buPROPion 75 MG TAB PO SCH ×2 (10:15→21:00)
[2017-04-27] MEDS: POTASSIUM CHLORIDE 10 MEQ SR TABLET PO SCH (10:15)
[2017-04-27] MEDS: CALCIUM CARBONATE 500 MG CHEW U/D PO SCH ×3 (10:16→21:25)
[2017-04-27] MEDS: DOCUSATE SODIUM 100 MG CAP PO PRN (10:16)
[2017-04-27] MEDS: SENNA 8.6 MG TAB (SENOKOT) PO SCH (10:16)
[2017-04-27] MEDS: LOSARTAN 50 MG TAB PO SCH (10:16)
[2017-04-27] MEDS: LIDOCAINE 5% (LIDODERM) PATCH TD SCH (10:17)
[2017-04-27] MEDS: hydroCHLOROthiazide 12.5 MG CAPSULE PO SCH (10:17)
[2017-04-27] MEDS: CARVedilol 3.125 MG TAB PO SCH ×2 (10:17→21:25)
[2017-04-27 14:00] VITALS: BP 115/58
[2017-04-27] MEDS: HEPARIN DRIP 25,000 UNITS in APPROPRIATE DILUENT 1 EA IV SCH (14:27)
[2017-04-27] MEDS: WARFARIN SOD 5 MG TAB PO SCH (18:33)
[2017-04-27 20:29] LABS: INR 1.11
[2017-04-27] MEDS: **NOTE PATIENT COMMENT** MISC XX SCH (21:00)
[2017-04-27] MEDS: SERTRALINE 100 MG TAB PO SCH (21:24)
[2017-04-27] MEDS: EZETIMIBE 10 MG TAB (ZETIA) PO SCH (21:24)
[2017-04-27] MEDS: zolPIDEM TARTRATE 5 MG TAB PO PRN (21:24)
[2017-04-27] MEDS: SIMVASTATIN 40 MG TAB PO SCH (21:25)
[2017-04-27 22:00] VITALS: BP 120/62
[2017-04-28] MEDS: HYDROmorphone (DILAUDID) 4 MG TAB PO PRN ×3 (00:03→18:53)
[2017-04-28] MEDS: oxyBUTYnin 5 MG TAB PO PRN (00:03)
[2017-04-28] MEDS: MIRALAX *UNIT DOSE* 17GM PACKET PO PRN (00:15)
[2017-04-28 03:12] LABS: BASO % 0.3 % (0.0-1.0); EOS # 0.2 K/mm3 (0.0-0.50); EOS % 1.6 % (0.0-3.0); LARGE UNSTAINED CELL # 0.1 K/mm3 (0.0-0.4); LARGE UNSTAINED CELL % 1.1 % (0.0-4.0); LYMPH # 1.3 K/mm3 (1.5-4.5); MEAN CORPUSCULAR HEMOGLOBIN 28.8 pg (27.0-33.0); MEAN CORPUSCULAR HGB CONC 33.7 g/dl (32.0-36.5); MEAN CORPUSCULAR VOLUME 85.6 fl (80.0-96.0); MONO % 8.4 % (0.0-5.0); NEUTROPHILS # 9.3 K/mm3 (1.8-7.7); NEUTROPHILS % 78.7 % (36.0-66.0); PLATELET COUNT, AUTOMATED 152 k/mm3 (150-450); RED CELL DISTRIBUTION WIDTH 15.1 % (11.5-14.5); WHITE BLOOD COUNT 11.8 K/mm3 (4.0-10.0)
[2017-04-28 03:20] LABS: INR 1.2
[2017-04-28] MEDS: SIMETHICONE 80 MG CHEW TAB PO PRN ×2 (03:27→09:08)
[2017-04-28] MEDS: ALPRAZolam 0.25 MG TAB PO PRN (03:32)
[2017-04-28 03:37] LABS: ALBUMIN 3.7 GM/DL (3.2-5.2); BILIRUBIN,TOTAL 0.9 MG/DL (0.2-1.0); CALCIUM LEVEL 9.3 MG/DL (8.8-10.2); CREATININE FOR GFR 1.7 MG/DL (0.70-1.30); GLOMERULAR FILTRATION RATE 42.4 (>42); POTASSIUM SERUM 3.6 MEQ/L (3.5-5.1); TOTAL PROTEIN 7.4 GM/DL (6.4-8.2)
[2017-04-28 06:00] VITALS: BP 145/65
[2017-04-28] MEDS: HEPARIN DRIP 25,000 UNITS in APPROPRIATE DILUENT 1 EA IV SCH (07:42)
[2017-04-28] MEDS ORDERED: BISACODYL 10 MG SUPP PR PRN (09:00)
[2017-04-28] MEDS: raNITIdine SYRUP 150 MG/10 ML UDC PO SCH ×2 (09:00→09:07)
[2017-04-28] MEDS: SENNA 8.6 MG TAB (SENOKOT) PO SCH (09:07)
[2017-04-28] MEDS: DOCUSATE SODIUM 100 MG CAP PO PRN (09:08)
[2017-04-28] MEDS: hydroCHLOROthiazide 12.5 MG CAPSULE PO SCH (09:08)
[2017-04-28] MEDS: POTASSIUM CHLORIDE 10 MEQ SR TABLET PO SCH (09:08)
[2017-04-28] MEDS: CALCIUM CARBONATE 500 MG CHEW U/D PO SCH ×3 (09:08→20:45)
[2017-04-28] MEDS: buPROPion 75 MG TAB PO SCH ×2 (09:08→20:45)
[2017-04-28] MEDS: CARVedilol 3.125 MG TAB PO SCH ×2 (09:09→20:46)
[2017-04-28] MEDS: LOSARTAN 50 MG TAB PO SCH (09:09)
[2017-04-28] MEDS: LIDOCAINE 5% (LIDODERM) PATCH TD SCH (09:09)
--- NOTE | 2017-04-28 09:27 | IPNPDOC ---
Subjective Date Seen The patient was seen on 04/28/17. Subjective Chief Complaint/HPI The patient is a 71-year-old male admitted with a reason for visit of Bridge Therapy For Procedure. Constitutional: Denies: Fever, Night Sweats ENT: Denies: Head Aches, Dysphagia Skin: Denies: Rash, Jaundice Pulmonary: Denies: Dyspnea, Cough, Pleuritic Chest Pain Cardiovascular: Denies: Chest Pain, Orthopnea Gastrointestinal: Reports: Abdominal Pain (lower abdominal discomfort. attributes to constipation) Objective Physical Examination General Exam: Positive: Alert, Moderate Distress (lower abdominal discomfort) ENT Exam: Positive: Atraumatic Neck Exam: Positive: Supple, Negative: JVD Chest Exam: Positive: Clear to auscultation Heart Exam: Positive: Rate Normal, Regular Rhythm Abdomen Exam: Positive: Normal bowel sounds, Soft, Tenderness (mild to moderate tenderness limited to suprapubic area) Extremity Exam: Negative: Edema Skin Exam: Positive: Nl turgor and temperature, Negative: Rash Neuro Exam: Positive: Normal Speech, Sensation Intact Psych Exam: Positive: Mental status NL, Memory Intact Assessment /Plan Problems (1) Bladder tumor Status: Acute Problem Specific Plan: Consult Specialist, Monitor Clinically, Repeat Labs Problem Text: 04/28/17: creatinine up to 1.7. will check renal u/s. urinary output is down also, but po intake is minimal. will restart IV until patient hydrates po adequately. still some pink color to urinary flow 04/27: POD2 from TURBT. Bleeding currently stopped and old blood in Mario, currently off coumadin. Will need to restart heparin and coumadin this [facility] Per prior discussion with Dr. Malik and Dr. Sommer, will keep inpt until back on coumadin to monitor for bleeding, as they do not rec bolus heparin, which would preclude use of lovenox. - start hep gtt in PM - start coumadin in PM - Mario out at uro followup visit 04/26: POD1 from TURBT. Having bleeding, currently off coumadin. [facility] need to [facility] 04/25 -- patient went to surgery earlier today. Catheter in place. Pt admitted for bridge therapy with heparin. Coumadin held. Dr Sommer consulted and plans to take to OR on Friday. (2) H/O mechanical aortic valve replacement Status: Chronic Problem Specific Plan: Monitor Clinically Problem Text: 04/28/17: INR still subtherapeutic. 04/26: Pt to restart heparin today without bolus and coumadin. Bleeding has stopped. No BRB in Mario. H&H stable. - hep gtt now, and coumadin to start this evening -AM INR 04/26: Pt to restart heparin Sun without bolus and coumadin. Currently having worsening bleeding. Monitor H&H. 04/25 - Not to restart heparin until Friday, and start it without a bolus (just restarting at the previous rate.) Pt is on warfarin as outpt. Warfarin is currently held and patient is on heparin for bridge therapy in anticipation of surgery on Friday with Dr Sommer. (3) HTN (hypertension) Status: Chronic Problem Specific Plan: Monitor Clinically Problem Text: On HCTZ, Cozaar, Coreg. (4) Anxiety Status: Chronic Problem Specific Plan: Monitor Clinically Problem Text: On Zoloft and bupropion outpt; and as needed Xanax. -discussed having pt review meds with PCP as bupropion often worsens anxiety (5) Depression Status: Chronic Problem Specific Plan: Monitor Clinically Problem Text: On Zoloft and Wellbutrin. (6) GERD (gastroesophageal reflux disease) Status: Chronic Problem Specific Plan: Monitor Clinically Problem Text: On Zantac. (7) CKD (chronic kidney disease), stage III Status: Chronic Response to Treatment: Worse (creatinine up. also note decreased po intake and urine output. will resume IV fluids. pressure not low.) Problem Specific Plan: Monitor Clinically (8) Anemia Status: Chronic Problem Specific Plan: Monitor Clinically Problem Text: Stable (9) Constipation Status: Acute Problem Text: 04/28/17: will add dulcolax suppos. BID stool softener and PRN milk of mag and miralax to maintain soft stools Plan/VTE VTE Prophylaxis Ordered?: Yes (Post-op bleeding risk; to restart Sun) Plan/Urinary Catheter Urinary Catheter: Place Mario (already laced) Reason for insertion/continuin: Perioperative Plan IVF: Initiate Diagnostics: Ultrasound VS, I&O, 24H, Fishbone Vital Signs/I&O Vital Signs Date Time Temp Pulse Resp B/P (MAP) Pulse Ox O2 Delivery O2 Flow Rate FiO2 04/28/17 06:00 98.9 67 18 145/65 (91) 96 Room Air I&O- Last 24 Hours up to 6 AM 04/28/17 06:00 Intake Total 120 ml Output Total 900 ml Balance -780 ml Laboratory Data 24H LABS Laboratory Tests 2 04/27/17 20:10: Prothrombin Time 14.5, Prothromb Time International Ratio 1.11, Activated Partial Thromboplast Time 46.3H 04/28/17 03:01: Prothrombin Time 15.4H, Prothromb Time International Ratio 1.20, Activated Partial Thromboplast Time 222.3*H, White Blood Count 11.8H, Red Blood Count 4.13L, Hemoglobin 11.9L, Hematocrit 35.4L, Mean Corpuscular Volume 85.6, Mean Corpuscular Hemoglobin 28.8, Mean Corpuscular Hemoglobin Concent 33.7, Red Cell Distribution Width 15.1H, Platelet Count 152, Neutrophils (%) (Auto) 78.7H, Lymphocytes (%) (Auto) 10.0L, Monocytes (%) (Auto) 8.4H, Eosinophils (%) (Auto) 1.6, Basophils (%) (Auto) 0.3, Neutrophils # (Auto) 9.3H, Lymphocytes # (Auto) 1.3L, Monocytes # (Auto) 1.0H, Eosinophils # (Auto) 0.2, Basophils # (Auto) 0.0 , Large Unclassified Cells % 1.1, Large Unclassified Cells # 0.1, Anion Gap 6L, Glomerular Filtration Rate 42.4, Blood Urea Nitrogen 31H, Creatinine 1.70H, Sodium Level 136, Potassium Level 3.6, Chloride Level 99, Carbon Dioxide Level 31, Calcium Level 9.3, Aspartate Amino Transf (AST/SGOT) 21, Alanine Aminotransferase (ALT/SGPT) 24, Alkaline Phosphatase 91, Total Bilirubin 0.9, Total Protein 7.4, Albumin 3.7, Albumin/Globulin Ratio 1.00 CBC/BMP Laboratory Tests 04/28/17 03:01 Red Blood Count 4.13 L, Mean Corpuscular Volume 85.6, Mean Corpuscular Hemoglobin 28.8, Mean Corpuscular Hemoglobin Concent 33.7, Red Cell Distribution Width 15.1 H, Neutrophils (%) (Auto) 78.7 H, Lymphocytes (%) (Auto ) 10.0 L, Monocytes (%) (Auto) 8.4 H, Eosinophils (%) (Auto) 1.6, Basophils (%) (Auto) 0.3, Neutrophils # (Auto) 9.3 H, Lymphocytes # (Auto) 1.3 L, Monocytes # (Auto) 1.0 H, Eosinophils # (Auto) 0.2, Basophils # (Auto) 0.0, Calcium Level 9.3, Aspartate Amino Transf (AST/SGOT) 21, Alanine Aminotransferase (ALT/SGPT) 24, Alkaline Phosphatase 91, Total Bilirubin 0.9, Total Protein 7.4, Albumin 3.7 Microbiology Microbiology 04/24/17 Stool Occult Blood (ELENI) - Final, Complete Nahum Mckinney MD Apr 28, 2017 09:27
[2017-04-28] MEDS: NS 1,000 ML IV SCH ×2 (09:30→22:00)
[2017-04-28 14:00] VITALS: BP 123/58
[2017-04-28] MEDS: WARFARIN SOD 5 MG TAB PO SCH (17:00)
[2017-04-28] MEDS: SIMVASTATIN 40 MG TAB PO SCH (20:45)
[2017-04-28] MEDS: SERTRALINE 100 MG TAB PO SCH (20:46)
[2017-04-28] MEDS: EZETIMIBE 10 MG TAB (ZETIA) PO SCH (20:46)
[2017-04-28] MEDS: **NOTE PATIENT COMMENT** MISC XX SCH (20:46)
[2017-04-28] MEDS: zolPIDEM TARTRATE 5 MG TAB PO PRN (20:52)
[2017-04-28 22:00] VITALS: BP 144/74
--- NOTE | 2017-04-28 22:02 | REP ---
RENAL ULTRASOUND: Real-time sonographic evaluation of the kidneys is performed. The kidneys are normal in size and echotexture, the right kidney measuring 11.4 x 4.8 x 6.0 cm and the left kidney 12.7 x 5.3 x 6.8 cm. There is no hydronephrosis bilaterally. There is a stent in the left renal pelvis. No renal mass is seen. The urinary bladder is empty. IMPRESSION: No hydronephrosis. Signed by Derrick Yoder MD 04/29/2017 12:36 P
[2017-04-29 06:00] VITALS: BP 148/88
[2017-04-29] MEDS: HEPARIN DRIP 25,000 UNITS in APPROPRIATE DILUENT 1 EA IV SCH (06:42)
[2017-04-29 06:43] LABS: BASO % 0.2 % (0.0-1.0); EOS % 1.1 % (0.0-3.0); LARGE UNSTAINED CELL # 0.1 K/mm3 (0.0-0.4); LARGE UNSTAINED CELL % 1.7 % (0.0-4.0); LYMPH # 0.5 K/mm3 (1.5-4.5); MEAN CORPUSCULAR HEMOGLOBIN 28.9 pg (27.0-33.0); MEAN CORPUSCULAR HGB CONC 34.3 g/dl (32.0-36.5); MEAN CORPUSCULAR VOLUME 84.1 fl (80.0-96.0); MONO # 0.6 K/mm3 (0.0-0.8); MONO % 12.3 % (0.0-5.0); NEUTROPHILS # 3.6 K/mm3 (1.8-7.7); NEUTROPHILS % 73.6 % (36.0-66.0); RED CELL DISTRIBUTION WIDTH 14.7 % (11.5-14.5); WHITE BLOOD COUNT 4.9 K/mm3 (4.0-10.0)
[2017-04-29 06:53] LABS: INR 1.68
[2017-04-29 07:07] LABS: ALBUMIN/GLOBULIN RATIO 0.66 (1.00-1.93); BILIRUBIN,TOTAL 0.5 MG/DL (0.2-1.0); CREATININE FOR GFR 1.26 MG/DL (0.70-1.30); GLOMERULAR FILTRATION RATE 59.9 (>42)
[2017-04-29 07:14] LABS: PLATELET COUNT, AUTOMATED 90 k/mm3 (150-450)
[2017-04-29 07:28] LABS: CALCIUM LEVEL 6.2 MG/DL (8.8-10.2); POTASSIUM SERUM 2.9 MEQ/L (3.5-5.1)
[2017-04-29 07:29] LABS: ALBUMIN 1.9 GM/DL (3.2-5.2); TOTAL PROTEIN 4.8 GM/DL (6.4-8.2)
[2017-04-29] MEDS: HYDROmorphone (DILAUDID) 4 MG TAB PO PRN ×3 (07:33→19:04)
[2017-04-29] MEDS: ALPRAZolam 0.25 MG TAB PO PRN (07:33)
[2017-04-29] MEDS: LIDOCAINE 5% (LIDODERM) PATCH TD SCH (07:34)
[2017-04-29] MEDS ORDERED: POTASSIUM CHLORIDE 10 MEQ SR TABLET PO ONE (08:15)
--- NOTE | 2017-04-29 08:43 | IPNPDOC ---
Subjective Date Seen The patient was seen on 04/29/17. Subjective Chief Complaint/HPI The patient is a 71-year-old male admitted with a reason for visit of Bridge Therapy For Procedure. Constitutional: Denies: Chills, Fever, Night Sweats Skin: Denies: Rash, Lesions, Bruising Pulmonary: Denies: Dyspnea, Cough, Pleuritic Chest Pain Cardiovascular: Denies: Chest Pain, Palpitations, Orthopnea Gastrointestinal: Reports: Other Symptoms (constipation and feeling of lower abdominal cramping have resolve.d), Denies: Nausea, Vomiting, Abdominal Pain Genitourinary: Reports: Hematuria (catheter in place.) Hematologic: Denies: Bruising, Petecchia, Purpura Psych: Reports: Mood Normal Objective Physical Examination General Exam: Positive: Alert, No Acute Distress ENT Exam: Positive: Atraumatic Neck Exam: Positive: Supple, Negative: JVD Chest Exam: Positive: Clear to auscultation Heart Exam: Positive: Rate Normal, Regular Rhythm, Other (metallic valve closure sound), Negative: Murmurs Abdomen Exam: Positive: Normal bowel sounds, Soft, Negative: Tenderness Extremity Exam: Negative: Edema Skin Exam: Positive: Nl turgor and temperature, Negative: Rash Neuro Exam: Positive: Normal Speech, Sensation Intact Psych Exam: Positive: Mental status NL, Memory Intact Assessment /Plan Problems (1) Bladder tumor Status: Acute Response to Treatment: Stable Problem Specific Plan: Consult Specialist, Monitor Clinically, Repeat Labs Problem Text: 04/29/17: hydration has resulted in improvement in Creatinine and drop of K overnight. renal u/s neg for hydronephrosis. still with red urine. Hgb trending down. Some of this drop is likely secondary to hydration but with ongoing losses may need Red Cells. 04/28/17: creatinine up to 1.7. will check renal u/s. urinary output is down also , but po intake is minimal. will restart IV until patient hydrates po adequately. still some pink color to urinary flow 04/27: POD2 from TURBT. Bleeding currently stopped and old blood in Mario, currently off coumadin. Will need to restart heparin and coumadin this evening [facility] Per prior discussion with Dr. Malik and Dr. Sommer, will keep inpt until back on coumadin to monitor for bleeding, as they do not rec bolus heparin, which would preclude use of lovenox. - start hep gtt in PM - start coumadin in PM - Mario out at uro followup visit 04/26: POD1 from TURBT. Having bleeding, currently off coumadin. Will need to restart Sun evening for [facility] heart valve. 04/25 -- patient went to surgery earlier today. Catheter in place. Pt admitted for bridge therapy with heparin. Coumadin held. Dr Sommer consulted and plans to take to OR on Friday. (2) H/O mechanical aortic valve replacement Status: Chronic Response to Treatment: Stable Problem Specific Plan: Monitor Clinically Problem Text: 04/29/17: will need INR of 2.5 to 3.5 for discharge. still subtherapeutic today. 04/28/17: INR still subtherapeutic. 04/26: Pt to restart heparin today without bolus and coumadin. Bleeding has stopped. No BRB in Mario. H&H stable. - hep gtt now, and coumadin to start this evening -AM INR 04/26: Pt to restart heparin Sun without bolus and coumadin. Currently having worsening bleeding. Monitor H&H. 04/25 - Not to restart heparin until Friday, and start it without a bolus (just restarting at the previous rate.) Pt is on warfarin as outpt. Warfarin is currently held and patient is on heparin for bridge therapy in anticipation of surgery on Friday with Dr Sommer. (3) HTN (hypertension) Status: Chronic Response to Treatment: Stable Problem Specific Plan: Monitor Clinically Problem Text: 04/29/17: due to dropping potassium, increase in maintenance doses ordered in addition to single 40mEq dose this am. On HCTZ, Cozaar, Coreg. (4) Anxiety Status: Chronic Response to Treatment: Stable Problem Specific Plan: Monitor Clinically Problem Text: On Zoloft and bupropion outpt; and as needed Xanax. -discussed having pt review meds with PCP as bupropion often worsens anxiety (5) Depression Status: Chronic Response to Treatment: Stable Problem Specific Plan: Monitor Clinically Problem Text: On Zoloft and Wellbutrin. (6) GERD (gastroesophageal reflux disease) Status: Chronic Problem Specific Plan: Monitor Clinically Problem Text: On Zantac. (7) CKD (chronic kidney disease), stage III Status: Chronic Response to Treatment: Improving Problem Specific Plan: Monitor Clinically Problem Text: creatinine improved to 1.26 today compared to 1.7 yesterday after IV fluid admin since yesterday. (8) Anemia Status: Chronic Problem Specific Plan: Monitor Clinically Problem Text: Stable (9) Constipation Status: Acute Problem Text: 04/28/17: will add dulcolax suppos. BID stool softener and PRN milk of mag and miralax to maintain soft stools Plan/VTE VTE Prophylaxis Ordered?: Yes (Post-op bleeding risk; to restart Sun) Plan/Urinary Catheter Urinary Catheter: Place Mario (already laced) Reason for insertion/continuin: Perioperative Plan IVF: Initiate Diagnostics: Ultrasound Anticipated Discharge: Home VS, I&O, 24H, [facility] Vital Signs/I&O Vital Signs Date Time Temp Pulse Resp B/P (MAP) Pulse Ox O2 Delivery O2 Flow Rate FiO2 04/29/17 07:33 16 04/29/17 06:00 98.3 60 148/88 (108) 95 Room Air I&O- Last 24 Hours up to 6 AM 04/29/17 06:00 Intake Total 720 ml Output Total 4650 ml Balance -3930 ml Laboratory Data 24H LABS Laboratory Tests 2 04/28/17 13:03: Activated Partial Thromboplast Time 97.8H 04/28/17 18:57: Activated Partial Thromboplast Time 101.5H 04/29/17 06:17: Activated Partial Thromboplast Time 137.5*H, White Blood Count 4.9, Red Blood Count 3.07L, Hemoglobin 8.9#L, Hematocrit 25.8L, Mean Corpuscular Volume 84.1, Mean Corpuscular Hemoglobin 28.9, Mean Corpuscular Hemoglobin Concent 34.3, Red Cell Distribution Width 14.7H, Platelet Count 90L, Neutrophils (%) (Auto) 73.6H , Lymphocytes (%) (Auto) 11.0L, Monocytes (%) (Auto) 12.3H, Eosinophils (%) ( Auto) 1.1, Basophils (%) (Auto) 0.2, Neutrophils # (Auto) 3.6, Lymphocytes # ( Auto) 0.5L, Monocytes # (Auto) 0.6, Eosinophils # (Auto) 0.0, Basophils # (Auto ) 0.0, Large Unclassified Cells % 1.7, Large Unclassified Cells # 0.1, Prothrombin Time 20.3H, Prothromb Time International Ratio 1.68, Anion Gap 10, Glomerular Filtration Rate 59.9, Blood Urea Nitrogen 20H, Creatinine 1.26, Sodium Level 143#, Potassium Level 2.9*L, Chloride Level 115H, Carbon Dioxide Level 18L, Calcium Level 6.2#L, Aspartate Amino Transf (AST/SGOT) 15, Alanine Aminotransferase (ALT/SGPT) 13, Alkaline Phosphatase 59, Total Bilirubin 0.5, Total Protein 4.8#L, Albumin 1.9#L, Albumin/Globulin Ratio 0.66L CBC/BMP Laboratory Tests 04/29/17 06:17 Red Blood Count 3.07 L, Mean Corpuscular Volume 84.1, Mean Corpuscular Hemoglobin 28.9, Mean Corpuscular Hemoglobin Concent 34.3, Red Cell Distribution Width 14.7 H, Neutrophils (%) (Auto) 73.6 H, Lymphocytes (%) (Auto ) 11.0 L, Monocytes (%) (Auto) 12.3 H, Eosinophils (%) (Auto) 1.1, Basophils (% ) (Auto) 0.2, Neutrophils # (Auto) 3.6, Lymphocytes # (Auto) 0.5 L, Monocytes # (Auto) 0.6, Eosinophils # (Auto) 0.0, Basophils # (Auto) 0.0, Calcium Level 6.2 #L, Aspartate Amino Transf (AST/SGOT) 15, Alanine Aminotransferase (ALT/SGPT) 13 , Alkaline Phosphatase 59, Total Bilirubin 0.5, Total Protein 4.8 #L, Albumin 1.9 #L Microbiology Microbiology 04/24/17 Stool Occult Blood (ELENI) - Final, Complete Nahum Mckinney MD Apr 29, 2017 08:43
[2017-04-29] MEDS: raNITIdine SYRUP 150 MG/10 ML UDC PO SCH (09:00)
[2017-04-29] MEDS: CALCIUM CARBONATE 500 MG CHEW U/D PO SCH ×3 (09:43→20:46)
[2017-04-29] MEDS: buPROPion 75 MG TAB PO SCH ×2 (09:43→20:47)
[2017-04-29] MEDS: SENNA 8.6 MG TAB (SENOKOT) PO SCH (09:44)
[2017-04-29] MEDS: hydroCHLOROthiazide 12.5 MG CAPSULE PO SCH (09:44)
[2017-04-29] MEDS: LOSARTAN 50 MG TAB PO SCH (09:44)
[2017-04-29] MEDS: CARVedilol 3.125 MG TAB PO SCH ×2 (09:44→20:47)
[2017-04-29] MEDS: POTASSIUM CHLORIDE 10 MEQ SR TABLET PO SCH ×2 (09:45→20:47)
[2017-04-29] MEDS: SIMETHICONE 80 MG CHEW TAB PO PRN (14:52)
[2017-04-29] MEDS: WARFARIN SOD 5 MG TAB PO SCH (17:32)
[2017-04-29] MEDS: **NOTE PATIENT COMMENT** MISC XX SCH (20:47)
[2017-04-29] MEDS: SERTRALINE 100 MG TAB PO SCH (20:47)
[2017-04-29] MEDS: SIMVASTATIN 40 MG TAB PO SCH (20:47)
[2017-04-29] MEDS: EZETIMIBE 10 MG TAB (ZETIA) PO SCH (20:47)
[2017-04-29 22:00] VITALS: BP 104/50
[2017-04-30] MEDS: zolPIDEM TARTRATE 5 MG TAB PO PRN ×2 (01:01→20:23)
[2017-04-30 06:00] VITALS: BP 112/52
[2017-04-30 07:11] LABS: MEAN CORPUSCULAR HGB CONC 34.2 g/dl (32.0-36.5); MEAN CORPUSCULAR VOLUME 84.7 fl (80.0-96.0); RED CELL DISTRIBUTION WIDTH 14.4 % (11.5-14.5); WHITE BLOOD COUNT 6.1 K/mm3 (4.0-10.0)
[2017-04-30 07:20] LABS: CALCIUM LEVEL 8.5 MG/DL (8.8-10.2); CREATININE FOR GFR 1.99 MG/DL (0.70-1.30); GLOMERULAR FILTRATION RATE 35.3 (>42); POTASSIUM SERUM 4.3 MEQ/L (3.5-5.1)
[2017-04-30 07:24] LABS: INR 1.56
[2017-04-30] MEDS: SENNA 8.6 MG TAB (SENOKOT) PO SCH (09:04)
[2017-04-30] MEDS: LIDOCAINE 5% (LIDODERM) PATCH TD SCH (09:04)
[2017-04-30] MEDS: HYDROmorphone (DILAUDID) 4 MG TAB PO PRN ×2 (09:04→13:25)
[2017-04-30] MEDS: LOSARTAN 50 MG TAB PO SCH (09:04)
[2017-04-30] MEDS: buPROPion 75 MG TAB PO SCH ×2 (09:04→20:23)
[2017-04-30] MEDS: CALCIUM CARBONATE 500 MG CHEW U/D PO SCH ×3 (09:04→20:22)
[2017-04-30] MEDS: raNITIdine SYRUP 150 MG/10 ML UDC PO SCH (09:04)
[2017-04-30] MEDS: POTASSIUM CHLORIDE 10 MEQ SR TABLET PO SCH ×2 (09:05→20:23)
[2017-04-30] MEDS: hydroCHLOROthiazide 12.5 MG CAPSULE PO SCH (09:05)
[2017-04-30] MEDS: CARVedilol 3.125 MG TAB PO SCH ×2 (09:05→20:23)
--- NOTE | 2017-04-30 11:09 | IPNPDOC ---
Subjective Date Seen The patient was seen on 04/30/17. Subjective Chief Complaint/HPI The patient is a 71-year-old male admitted with a reason for visit of Bridge Therapy For Procedure. Constitutional: Denies: Chills, Malaise, Night Sweats ENT: Denies: Head Aches, Dysphagia Skin: Denies: Rash, Bruising Pulmonary: Denies: Dyspnea, Cough, Pleuritic Chest Pain Cardiovascular: Denies: Chest Pain, Palpitations, Orthopnea Gastrointestinal: Reports: Abdominal Pain (slight bloaty discomfort right lower abdomen), Denies: Nausea Genitourinary: Reports: Hematuria Hematologic: Denies: Petecchia Objective Physical Examination General Exam: Positive: Alert, No Acute Distress ENT Exam: Positive: Atraumatic Neck Exam: Positive: Supple, Negative: JVD Chest Exam: Positive: Clear to auscultation Heart Exam: Positive: Rate Normal, Regular Rhythm, Other (metallic valve closure sound), Negative: Murmurs Abdomen Exam: Positive: Normal bowel sounds, Soft, Negative: Tenderness Extremity Exam: Negative: Edema Skin Exam: Positive: Nl turgor and temperature, Negative: Rash Neuro Exam: Positive: Normal Speech, Sensation Intact Psych Exam: Positive: Mental status NL, Memory Intact Assessment /Plan Problems (1) Bladder tumor Status: Acute Response to Treatment: Stable Problem Specific Plan: Consult Specialist, Monitor Clinically, Repeat Labs Problem Text: 04/29/17: hydration has resulted in improvement in Creatinine and drop of K overnight. renal u/s neg for hydronephrosis. still with red urine. Hgb trending down. Some of this drop is likely secondary to hydration but with ongoing losses may need Red Cells. 04/28/17: creatinine up to 1.7. will check renal u/s. urinary output is down also , but po intake is minimal. will restart IV until patient hydrates po adequately. still some pink color to urinary flow 04/27: POD2 from TURBT. Bleeding currently stopped and old blood in Mario, currently off coumadin. Will need to restart heparin and coumadin this evening for evening for [facility] heart valve. Per prior discussion with Dr. Malik and Dr. Sommer, will keep inpt until back on coumadin to monitor for bleeding, as they do not rec bolus heparin, which would preclude use of lovenox. - start hep gtt in PM - start coumadin in PM - Mario out at uro followup visit 04/26: POD1 from TURBT. Having bleeding, currently off coumadin. Will need to restart Sun evening for [facility] heart valve. 04/25 -- patient went to surgery earlier today. Catheter in place. Pt admitted for bridge therapy with heparin. Coumadin held. Dr Sommer consulted and plans to take to OR on Friday. (2) H/O mechanical aortic valve replacement Status: Chronic Response to Treatment: Stable Problem Specific Plan: Monitor Clinically Problem Text: 04/30/17: INR lower today, so will increase warfarin to 7.5mg daily 04/29/17: will need INR of 2.5 to 3.5 for discharge. still subtherapeutic today. 04/28/17: INR still subtherapeutic. 04/26: Pt to restart heparin today without bolus and coumadin. Bleeding has stopped. No BRB in Mario. H&H stable. - hep gtt now, and coumadin to start this evening -AM INR 04/26: Pt to restart heparin Sun without bolus and coumadin. Currently having worsening bleeding. Monitor H&H. 04/25 - Not to restart heparin until Friday, and start it without a bolus (just restarting at the previous rate.) Pt is on warfarin as outpt. Warfarin is currently held and patient is on heparin for bridge therapy in anticipation of surgery on Friday with Dr Sommer. (3) HTN (hypertension) Status: Chronic Response to Treatment: Stable Problem Specific Plan: Monitor Clinically Problem Text: 04/30/17: BP's lower, Creat up to 1.99, will temporarily stop HCTZ and losartan. Give 1 L NS and encourage increase po intake. Potassium normalized. 04/29/17: due to dropping potassium, increase in maintenance doses ordered in addition to single 40mEq dose this am. On HCTZ, Cozaar, Coreg. (4) Anxiety Status: Chronic Response to Treatment: Stable Problem Specific Plan: Monitor Clinically Problem Text: On Zoloft and bupropion outpt; and as needed Xanax. -discussed having pt review meds with PCP as bupropion often worsens anxiety (5) Depression Status: Chronic Response to Treatment: Stable Problem Specific Plan: Monitor Clinically Problem Text: On Zoloft and Wellbutrin. (6) GERD (gastroesophageal reflux disease) Status: Chronic Problem Specific Plan: Monitor Clinically Problem Text: On Zantac. (7) CKD (chronic kidney disease), stage III Status: Chronic Response to Treatment: Improving Problem Specific Plan: Monitor Clinically Problem Text: 04/30/ creatinine up to 1.99. will give 1 L NS, increase po intake , hold losartan and hctz for now. 04/29: creatinine improved to 1.26 today compared to 1.7 yesterday after IV fluid admin since yesterday. (8) Anemia Status: Chronic Problem Specific Plan: Monitor Clinically Problem Text: Stable (9) Constipation Status: Acute Problem Text: 04/28/17: will add dulcolax suppos. BID stool softener and PRN milk of mag and miralax to maintain soft stools Plan/VTE VTE Prophylaxis Ordered?: Yes (Post-op bleeding risk; to restart Sun) Plan/Urinary Catheter Urinary Catheter: Place Mario (already laced) Reason for insertion/continuin: Perioperative Plan IVF: Change Diagnostics: Ultrasound Anticipated Discharge: Home VS, I&O, 24H, [facility] Vital Signs/I&O Vital Signs Date Time Temp Pulse Resp B/P (MAP) Pulse Ox O2 Delivery O2 Flow Rate FiO2 04/30/17 09:34 16 04/30/17 09:05 62 112/52 04/30/17 06:00 98.2 95 Room Air I&O- Last 24 Hours up to 6 AM 04/30/17 05:59 Intake Total 360 ml Output Total 1550 ml Balance -1190 ml Laboratory Data 24H LABS Laboratory Tests 2 04/29/17 15:38: Activated Partial Thromboplast Time 64.5H 04/29/17 21:33: Activated Partial Thromboplast Time 67.5H 04/30/17 06:37: Activated Partial Thromboplast Time 88.9H, Prothrombin Time 19.1H, Prothromb Time International Ratio 1.56, Anion Gap 8, Glomerular Filtration Rate 35.3L, Blood Urea Nitrogen 26H, Creatinine 1.99#H, Sodium Level 142, Potassium Level 4.3#, Chloride Level 106, Carbon Dioxide Level 28, Calcium Level 8.5#L CBC/BMP Laboratory Tests 04/30/17 06:37 Red Blood Count 3.63 L, Mean Corpuscular Volume 84.7, Mean Corpuscular Hemoglobin 29.0, Mean Corpuscular Hemoglobin Concent 34.2, Red Cell Distribution Width 14.4, Calcium Level 8.5 #L Microbiology Microbiology 04/24/17 Stool Occult Blood (ELENI) - Final, Complete Nahum Mckinney MD Apr 30, 2017 11:09
[2017-04-30] MEDS: NS 1,000 ML IV SCH ×2 (11:45→17:40)
[2017-04-30] MEDS: SIMETHICONE 80 MG CHEW TAB PO PRN (13:25)
[2017-04-30] MEDS: HEPARIN DRIP 25,000 UNITS in APPROPRIATE DILUENT 1 EA IV SCH (13:27)
[2017-04-30 14:00] VITALS: BP 134/63
[2017-04-30] MEDS ORDERED: WARFARIN SOD 7.5 MG TAB PO SCH (17:00)
[2017-04-30] MEDS: **NOTE PATIENT COMMENT** MISC XX SCH (20:23)
[2017-04-30] MEDS: SIMVASTATIN 40 MG TAB PO SCH (20:23)
[2017-04-30] MEDS: SERTRALINE 100 MG TAB PO SCH (20:23)
[2017-04-30] MEDS: EZETIMIBE 10 MG TAB (ZETIA) PO SCH (20:23)
[2017-04-30 22:00] VITALS: BP 134/52
[2017-05-01] MEDS: HYDROmorphone (DILAUDID) 4 MG TAB PO PRN ×3 (05:46→21:31)
[2017-05-01 06:00] VITALS: BP 124/82
[2017-05-01] MEDS ORDERED: POTASSIUM CHLORIDE 10 MEQ SR TABLET PO SCH (06:00)
[2017-05-01 07:18] LABS: INR 1.6; MEAN CORPUSCULAR HEMOGLOBIN 28.6 pg (27.0-33.0); MEAN CORPUSCULAR HGB CONC 33.9 g/dl (32.0-36.5); MEAN CORPUSCULAR VOLUME 84.3 fl (80.0-96.0); RED CELL DISTRIBUTION WIDTH 14.4 % (11.5-14.5); WHITE BLOOD COUNT 7.2 K/mm3 (4.0-10.0)
[2017-05-01 07:21] LABS: CREATININE FOR GFR 1.79 MG/DL (0.70-1.30); GLOMERULAR FILTRATION RATE 39.9 (>42); POTASSIUM SERUM 4.7 MEQ/L (3.5-5.1)
[2017-05-01] MEDS: LIDOCAINE 5% (LIDODERM) PATCH TD SCH (08:34)
[2017-05-01] MEDS: CARVedilol 3.125 MG TAB PO SCH ×2 (08:35→21:27)
[2017-05-01] MEDS: buPROPion 75 MG TAB PO SCH ×2 (08:36→21:27)
[2017-05-01] MEDS: SENNA 8.6 MG TAB (SENOKOT) PO SCH (08:36)
[2017-05-01] MEDS: CALCIUM CARBONATE 500 MG CHEW U/D PO SCH ×3 (08:37→21:28)
[2017-05-01] MEDS: raNITIdine SYRUP 150 MG/10 ML UDC PO SCH (08:38)
[2017-05-01] MEDS: DOCUSATE SODIUM 100 MG CAP PO PRN (08:49)
[2017-05-01] MEDS: MIRALAX *UNIT DOSE* 17GM PACKET PO PRN (08:50)
[2017-05-01] MEDS: ALPRAZolam 0.25 MG TAB PO PRN ×2 (08:51→18:21)
--- NOTE | 2017-05-01 12:49 | IPNPDOC ---
Assessment/Plan Date Seen The patient was seen on 05/01/17. 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 The patient's pathology was reviewed w/ him and all questions were answered. I also explained that the next step after he has healed from surgery would BCG intravesical therapy. 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 He noted understanding. He is still having a moderate amount of hematuria and I suspect this is due to the anticoagulation and the left ureteral stent. I therefore recommended that we set him up for stent removal tomorrow. After a discussion of the risks and benefits, informed consent was signed. Problems (1) Bladder tumor Status: Acute (2) H/O mechanical aortic valve replacement Status: Chronic (3) HTN (hypertension) Status: Chronic (4) Anxiety Status: Chronic (5) Depression Status: Chronic (6) GERD (gastroesophageal reflux disease) Status: Chronic (7) CKD (chronic kidney disease), stage III Status: Chronic (8) Anemia Status: Chronic (9) Constipation Status: Acute Plan/VTE VTE Prophylaxis Ordered?: Yes (Post-op bleeding risk; to restart Sun) Plan/Urinary Catheter Urinary Catheter: Place Mario (already placed) Reason for insertion/continuin: Perioperative Plan - keep catheter in place (will plan to remove it after surgery tomorrow) - informed consent signed for cysto and left stent removal - continue current care per medical team (no need to stop anticoagulation for stent removal) - NPO at midnight for OR tomorrow Diagnostics: Ultrasound Subjective Review oF Systems Chief Complaint The patient is a 71-year-old male admitted with a reason for visit of Bridge Therapy For Procedure. Events since Last Encounter Patient denies abdominal or flank pain. He notes that his urine has remained red since resuming anticoagulation, but states that the catheter has been draining fine. Objective Physical Examination General Exam: Alert, Cooperative, No Acute Distress ENT EXAM: Atraumatic Chest Exam: Normal air movement Heart Exam: Positive: Rate Normal, Regular Rhythm, Murmurs ABDOMEN EXAM: Soft Skin Exam: Nl turgor and temperature Neuro Exam: Normal Speech Psych Exam: Mental status NL, Mood NL Other physical findings catheter in place, draining red urine w/ no clots Vital Signs/I&O Vital Signs Date Time Temp Pulse Resp B/P (MAP) Pulse Ox O2 Delivery O2 Flow Rate FiO2 05/01/17 08:35 70 124/82 05/01/17 06:17 16 05/01/17 06:00 98.0 95 Room Air I&O- Last 24 Hours up to 6 AM 05/01/17 05:59 Intake Total 2148 ml Output Total 2300 ml Balance -152 ml Laboratory Data Labs 24H Laboratory Tests 2 05/01/17 06:53: Prothrombin Time 19.5H, Prothromb Time International Ratio 1.60, Activated Partial Thromboplast Time 70.9H, Anion Gap 8, Glomerular Filtration Rate 39.9L, Blood Urea Nitrogen 27H, Creatinine 1.79H, Sodium Level 141, Potassium Level 4.7 , Chloride Level 105, Carbon Dioxide Level 28, Calcium Level 9.0 CBC/BMP Laboratory Tests 05/01/17 06:53 Red Blood Count 3.73 L, Mean Corpuscular Volume 84.3, Mean Corpuscular Hemoglobin 28.6, Mean Corpuscular Hemoglobin Concent 33.9, Red Cell Distribution Width 14.4, Calcium Level 9.0 Microbiology Microbiology 04/30/17 Stool Occult Blood (ELENI) - Final, Complete 04/24/17 Stool Occult Blood (ELENI) - Final, Complete CONSUELO FRANCISCO MD May 01, 2017 12:49
--- NOTE | 2017-05-01 13:21 | IPNPDOC ---
Subjective Date Seen The patient was seen on 05/01/17. Subjective Chief Complaint/HPI The patient is a 71-year-old male admitted with a reason for visit of Bridge Therapy For Procedure. Constitutional: Denies: Chills, Malaise Pulmonary: Denies: Dyspnea, Cough, Pleuritic Chest Pain Cardiovascular: Denies: Chest Pain, Palpitations, Orthopnea Gastrointestinal: Denies: Nausea, Vomiting, Abdominal Pain Objective Physical Examination General Exam: Positive: Alert, No Acute Distress ENT Exam: Positive: Atraumatic Neck Exam: Positive: Supple, Negative: JVD Chest Exam: Positive: Clear to auscultation Heart Exam: Positive: Rate Normal, Regular Rhythm, Murmurs Extremity Exam: Negative: Edema Skin Exam: Positive: Nl turgor and temperature, Negative: Rash Neuro Exam: Positive: Normal Speech, Sensation Intact Psych Exam: Positive: Mental status NL, Memory Intact Assessment /Plan Problems (1) Bladder tumor Status: Acute Response to Treatment: Stable Problem Specific Plan: Consult Specialist, Monitor Clinically, Repeat Labs Problem Text: 05/01/17: on for left ureteral stent removal tomorrow per Dr. Sommer. 04/29/17: hydration has resulted in improvement in Creatinine and drop of K overnight. renal u/s neg for hydronephrosis. still with red urine. Hgb trending down. Some of this drop is likely secondary to hydration but with ongoing losses may need Red Cells. 04/28/17: creatinine up to 1.7. will check renal u/s. urinary output is down also , but po intake is minimal. will restart IV until patient hydrates po adequately. still some pink color to urinary flow 04/27: POD2 from TURBT. Bleeding currently stopped and old blood in Mario, currently off coumadin. Will need to restart heparin and coumadin this evening for evening for mech heart valve. Per prior discussion with Dr. Malik and Dr. Sommer, will keep inpt until back on coumadin to monitor for bleeding, as they do not rec bolus heparin, which would preclude use of lovenox. - start hep gtt in PM - start coumadin in PM - Mario out at uro followup visit 04/26: POD1 from TURBT. Having bleeding, currently off coumadin. Will need to restart Sun evening for mech heart valve. 04/25 -- patient went to surgery earlier today. Catheter in place. Pt admitted for bridge therapy with heparin. Coumadin held. Dr Sommer consulted and plans to take to OR on Friday. (2) H/O mechanical aortic valve replacement Status: Chronic Response to Treatment: Stable Problem Specific Plan: Monitor Clinically Problem Text: 05/01/17 INR still not trending up; 10mg warfarin today. 04/30/17: INR lower today, so will increase warfarin to 7.5mg daily 04/29/17: will need INR of 2.5 to 3.5 for discharge. still subtherapeutic today. 04/28/17: INR still subtherapeutic. 04/26: Pt to restart heparin today without bolus and coumadin. Bleeding has stopped. No BRB in Mario. H&H stable. - hep gtt now, and coumadin to start this evening -AM INR 04/26: Pt to restart heparin Sun without bolus and coumadin. Currently having worsening bleeding. Monitor H&H. 04/25 - Not to restart heparin until Friday, and start it without a bolus (just restarting at the previous rate.) Pt is on warfarin as outpt. Warfarin is currently held and patient is on heparin for bridge therapy in anticipation of surgery on Friday with Dr Sommer. (3) HTN (hypertension) Status: Chronic Response to Treatment: Stable Problem Specific Plan: Monitor Clinically Problem Text: 04/30/17: BP's lower, Creat up to 1.99, will temporarily stop HCTZ and losartan. Give 1 L NS and encourage increase po intake. Potassium normalized. 04/29/17: due to dropping potassium, increase in maintenance doses ordered in addition to single 40mEq dose this am. On HCTZ, Cozaar, Coreg. (4) Anxiety Status: Chronic Response to Treatment: Stable Problem Specific Plan: Monitor Clinically Problem Text: On Zoloft and bupropion outpt; and as needed Xanax. -discussed having pt review meds with PCP as bupropion often worsens anxiety (5) Depression Status: Chronic Response to Treatment: Stable Problem Specific Plan: Monitor Clinically Problem Text: On Zoloft and Wellbutrin. (6) GERD (gastroesophageal reflux disease) Status: Chronic Problem Specific Plan: Monitor Clinically Problem Text: On Zantac. (7) CKD (chronic kidney disease), stage III Status: Chronic Response to Treatment: Improving Problem Specific Plan: Monitor Clinically Problem Text: 05/01/17: INR improved since yesterday. BP still OK. 04/30/ creatinine up to 1.99. will give 1 L NS, increase po intake, hold losartan and hctz for now. 04/29: creatinine improved to 1.26 today compared to 1.7 yesterday after IV fluid admin since yesterday. (8) Anemia Status: Chronic Problem Specific Plan: Monitor Clinically Problem Text: Stable (9) Constipation Status: Acute Problem Text: 04/28/17: will add dulcolax suppos. BID stool softener and PRN milk of mag and miralax to maintain soft stools Plan/VTE VTE Prophylaxis Ordered?: Yes (Post-op bleeding risk; to restart Sun) Plan/Urinary Catheter Urinary Catheter: Place Mario (already placed) Reason for insertion/continuin: Perioperative Plan Diagnostics: Ultrasound VS, I&O, 24H, Fishbone Vital Signs/I&O Vital Signs Date Time Temp Pulse Resp B/P (MAP) Pulse Ox O2 Delivery O2 Flow Rate FiO2 05/01/17 08:35 70 124/82 05/01/17 06:17 16 05/01/17 06:00 98.0 95 Room Air I&O- Last 24 Hours up to 6 AM 05/01/17 05:59 Intake Total 2148 ml Output Total 2300 ml Balance -152 ml Laboratory Data 24H LABS Laboratory Tests 2 05/01/17 06:53: Prothrombin Time 19.5H, Prothromb Time International Ratio 1.60, Activated Partial Thromboplast Time 70.9H, Anion Gap 8, Glomerular Filtration Rate 39.9L, Blood Urea Nitrogen 27H, Creatinine 1.79H, Sodium Level 141, Potassium Level 4.7 , Chloride Level 105, Carbon Dioxide Level 28, Calcium Level 9.0 CBC/BMP Laboratory Tests 05/01/17 06:53 Red Blood Count 3.73 L, Mean Corpuscular Volume 84.3, Mean Corpuscular Hemoglobin 28.6, Mean Corpuscular Hemoglobin Concent 33.9, Red Cell Distribution Width 14.4, Calcium Level 9.0 Microbiology Microbiology 04/30/17 Stool Occult Blood (ELENI) - Final, Complete 04/24/17 Stool Occult Blood (ELENI) - Final, Complete Nahum Mckinney MD May 01, 2017 13:21
[2017-05-01 14:00] VITALS: BP 113/57
[2017-05-01] MEDS: SIMETHICONE 80 MG CHEW TAB PO PRN (14:01)
[2017-05-01] MEDS ORDERED: WARFARIN SOD 5 MG TAB PO ONE (17:00)
[2017-05-01] MEDS: **NOTE PATIENT COMMENT** MISC XX SCH (18:00)
[2017-05-01] MEDS: HEPARIN DRIP 25,000 UNITS in APPROPRIATE DILUENT 1 EA IV SCH (18:13)
[2017-05-01] MEDS: SERTRALINE 100 MG TAB PO SCH (21:26)
[2017-05-01] MEDS: EZETIMIBE 10 MG TAB (ZETIA) PO SCH (21:26)
[2017-05-01] MEDS: SIMVASTATIN 40 MG TAB PO SCH (21:28)
[2017-05-01] MEDS: zolPIDEM TARTRATE 5 MG TAB PO PRN (21:28)
[2017-05-01 22:00] VITALS: BP 116/56
[2017-05-02] MEDS: LIDOCAINE 5% (LIDODERM) PATCH TD SCH (05:41)
[2017-05-02] MEDS: CARVedilol 3.125 MG TAB PO SCH ×2 (05:41→20:27)
[2017-05-02] MEDS: buPROPion 75 MG TAB PO SCH ×2 (05:44→20:25)
[2017-05-02] MEDS: SENNA 8.6 MG TAB (SENOKOT) PO SCH (05:44)
[2017-05-02] MEDS: CALCIUM CARBONATE 500 MG CHEW U/D PO SCH ×3 (05:45→20:29)
[2017-05-02] MEDS: raNITIdine SYRUP 150 MG/10 ML UDC PO SCH (05:45)
[2017-05-02 06:00] VITALS: BP 122/57
[2017-05-02 06:47] LABS: MEAN CORPUSCULAR HEMOGLOBIN 29.1 pg (27.0-33.0); MEAN CORPUSCULAR HGB CONC 34.8 g/dl (32.0-36.5); MEAN CORPUSCULAR VOLUME 83.5 fl (80.0-96.0); RED CELL DISTRIBUTION WIDTH 14.1 % (11.5-14.5); WHITE BLOOD COUNT 5.2 K/mm3 (4.0-10.0)
[2017-05-02 07:12] LABS: INR 2.12
[2017-05-02 07:31] LABS: CALCIUM LEVEL 8.1 MG/DL (8.8-10.2); CREATININE FOR GFR 1.84 MG/DL (0.70-1.30); GLOMERULAR FILTRATION RATE 38.7 (>42); POTASSIUM SERUM 4.4 MEQ/L (3.5-5.1)
[2017-05-02] MEDS ORDERED: MIDAZOLAM INJ 2 MG/2 ML VIAL (J2250) As Ordered ONE ×2 (09:27→09:32)
[2017-05-02] MEDS ORDERED: PROPOFOL 200 MG/20 ML VIAL As Ordered ONE (09:32)
[2017-05-02] MEDS ORDERED: fentaNYL 100 MCG/2 ML INJECTION (J3010) As Ordered ONE (09:32)
[2017-05-02] MEDS ORDERED: ONDANSETRON 4MG/2ML VIAL (J2405) As Ordered ONE (09:32)
[2017-05-02] MEDS ORDERED: LIDOCAINE 2% INJ 100 MG/5 ML SDV (FOR ANES.) As Ordered ONE (09:32)
[2017-05-02] MEDS ORDERED: dexameTHASONE 4 MG/ML 1ML VIAL (J1100) As Ordered ONE (09:32)
[2017-05-02] MEDS ORDERED: LIDOCAINE 2% 5ML JELLY UROJET TOP ONE (09:34)
[2017-05-02] MEDS ORDERED: ONDANSETRON 4MG/2ML VIAL (J2405) IV PRN (10:30)
[2017-05-02] MEDS ORDERED: METOCLOPRAMIDE INJ 10MG/2ML VIAL (J2765) IV PRN (10:30)
[2017-05-02] MEDS ORDERED: LR 1,000 ML IV SCH (10:30)
[2017-05-02] MEDS ORDERED: fentaNYL 100 MCG/2 ML INJECTION (J3010) IV PRN (10:30)
[2017-05-02] MEDS ORDERED: MEPERIDINE INJ 25 MG/ML VIAL (J2175) IV PRN (10:30)
[2017-05-02] MEDS ORDERED: PERCOCET 5MG/325MG TAB PO PRN (10:30)
--- NOTE | 2017-05-02 11:29 | REP ---
PORTABLE ABDOMEN: AP portable view of the abdomen is performed. The bowel gas pattern is normal with no evidence for bowel obstruction. A left ureteral stent is visualized with the proximal end coiled in the region over the left renal pelvis and the distal end coiled in the region of the urinary bladder. Metallic prosthesis is noted of the right hip. Signed by Derrick Yoder MD 05/02/2017 04:42 P
[2017-05-02] MEDS: HYDROmorphone (DILAUDID) 4 MG TAB PO PRN ×2 (11:49→18:45)
[2017-05-02 12:32] VITALS: BP 132/60
[2017-05-02 13:00] VITALS: BP 143/64
[2017-05-02 14:00] VITALS: BP 141/62
--- NOTE | 2017-05-02 15:51 | IPNPDOC ---
Subjective Date Seen The patient was seen on 05/02/17. Subjective Chief Complaint/HPI The patient is a 71-year-old male admitted with a reason for visit of Bridge Therapy For Procedure. Constitutional: Denies: Chills, Fever Skin: Denies: Rash, Jaundice Pulmonary: Denies: Dyspnea, Cough, Pleuritic Chest Pain Cardiovascular: Denies: Chest Pain, Palpitations Gastrointestinal: Denies: Nausea, Vomiting, Diarrhea Genitourinary: Reports: Other Symptoms (some dysuria since removal of Mario) Objective Physical Examination General Exam: Positive: Alert, No Acute Distress ENT Exam: Positive: Atraumatic Neck Exam: Positive: Supple, Negative: JVD Chest Exam: Positive: Clear to auscultation Heart Exam: Positive: Rate Normal, Regular Rhythm, Murmurs Extremity Exam: Negative: Edema Skin Exam: Positive: Nl turgor and temperature, Negative: Rash Neuro Exam: Positive: Normal Speech, Sensation Intact Psych Exam: Positive: Mental status NL, Memory Intact Assessment /Plan Problems (1) Bladder tumor Status: Acute Response to Treatment: Stable Problem Specific Plan: Consult Specialist, Monitor Clinically, Repeat Labs Problem Text: 05/01/17: on for left ureteral stent removal tomorrow per Dr. Sommer. 04/29/17: hydration has resulted in improvement in Creatinine and drop of K overnight. renal u/s neg for hydronephrosis. still with red urine. Hgb trending down. Some of this drop is likely secondary to hydration but with ongoing losses may need Red Cells. 04/28/17: creatinine up to 1.7. will check renal u/s. urinary output is down also , but po intake is minimal. will restart IV until patient hydrates po adequately. still some pink color to urinary flow 04/27: POD2 from TURBT. Bleeding currently stopped and old blood in Mario, currently off coumadin. Will need to restart heparin and coumadin this evening for evening for mech heart valve. Per prior discussion with Dr. Malik and Dr. Sommer, will keep inpt until back on coumadin to monitor for bleeding, as they do not rec bolus heparin, which would preclude use of lovenox. - start hep gtt in PM - start coumadin in PM - Mario out at uro followup visit 04/26: POD1 from TURBT. Having bleeding, currently off coumadin. Will need to restart Sun evening for mech heart valve. 04/25 -- patient went to surgery earlier today. Catheter in place. Pt admitted for bridge therapy with heparin. Coumadin held. Dr Sommer consulted and plans to take to OR on Friday. (2) H/O mechanical aortic valve replacement Status: Chronic Response to Treatment: Stable Problem Specific Plan: Monitor Clinically Problem Text: 05/02/17: INR finally above 2, but needs to be 2.5 for discontinuation of Heparin drip. Hopefully will be there tomorrow. 6mg warfarin tonight 05/01/17 INR still not trending up; 10mg warfarin today. 04/30/17: INR lower today, so will increase warfarin to 7.5mg daily 04/29/17: will need INR of 2.5 to 3.5 for discharge. still subtherapeutic today. 04/28/17: INR still subtherapeutic. 04/26: Pt to restart heparin today without bolus and coumadin. Bleeding has stopped. No BRB in Mario. H&H stable. - hep gtt now, and coumadin to start this evening -AM INR 04/26: Pt to restart heparin Sun without bolus and coumadin. Currently having worsening bleeding. Monitor H&H. 04/25 - Not to restart heparin until Friday, and start it without a bolus (just restarting at the previous rate.) Pt is on warfarin as outpt. Warfarin is currently held and patient is on heparin for bridge therapy in anticipation of surgery on Friday with Dr Sommer. (3) HTN (hypertension) Status: Chronic Response to Treatment: Stable Problem Specific Plan: Monitor Clinically Problem Text: 04/30/17: BP's lower, Creat up to 1.99, will temporarily stop HCTZ and losartan. Give 1 L NS and encourage increase po intake. Potassium normalized. 04/29/17: due to dropping potassium, increase in maintenance doses ordered in addition to single 40mEq dose this am. On HCTZ, Cozaar, Coreg. (4) Anxiety Status: Chronic Response to Treatment: Stable Problem Specific Plan: Monitor Clinically Problem Text: On Zoloft and bupropion outpt; and as needed Xanax. -discussed having pt review meds with PCP as bupropion often worsens anxiety (5) Depression Status: Chronic Response to Treatment: Stable Problem Specific Plan: Monitor Clinically Problem Text: On Zoloft and Wellbutrin. (6) GERD (gastroesophageal reflux disease) Status: Chronic Problem Specific Plan: Monitor Clinically Problem Text: On Zantac. (7) CKD (chronic kidney disease), stage III Status: Chronic Response to Treatment: Improving Problem Specific Plan: Monitor Clinically Problem Text: 05/02/17: requested consult from Dr. Garcia regarding elevated creatinine with this admission. Dr. Sommer observed blood coming from the left ureter. 05/01/17: INR improved since yesterday. BP still OK. 04/30/ creatinine up to 1.99. will give 1 L NS, increase po intake, hold losartan and hctz for now. 04/29: creatinine improved to 1.26 today compared to 1.7 yesterday after IV fluid admin since yesterday. (8) Anemia Status: Chronic Problem Specific Plan: Monitor Clinically Problem Text: Stable (9) Constipation Status: Acute Problem Text: 04/28/17: will add dulcolax suppos. BID stool softener and PRN milk of mag and miralax to maintain soft stools (10) Post herpetic neuralgia Status: Chronic Problem Specific Plan: Monitor Clinically (patient interested in gradual reduction of chronic narcotic use since he perceives most of his pain control comes from the use of topical lidocain, not from the narc. Narcotic use mostly just to prevent withdrawal symptoms at this time.) Plan/VTE VTE Prophylaxis Ordered?: Yes (Post-op bleeding risk; to restart Sun) Plan/Urinary Catheter Urinary Catheter: Place Mario (already placed) Reason for insertion/continuin: Perioperative Plan Diagnostics: Ultrasound Anticipated Discharge: AMA VS, I&O, 24H, Fishbone Vital Signs/I&O Vital Signs Date Time Temp Pulse Resp B/P (MAP) Pulse Ox O2 Delivery O2 Flow Rate FiO2 05/02/17 14:00 98.0 64 18 141/62 (88) 96 Room Air 05/02/17 10:16 2 I&O- Last 24 Hours up to 6 AM 05/02/17 06:00 Intake Total 720 ml Output Total 2500 ml Balance -1780 ml Laboratory Data 24H LABS Laboratory Tests 2 05/02/17 06:35: Prothrombin Time 24.5H, Prothromb Time International Ratio 2.12, Anion Gap 9, Glomerular Filtration Rate 38.7L, Blood Urea Nitrogen 24H, Creatinine 1.84H, Sodium Level 143, Potassium Level 4.4, Chloride Level 105, Carbon Dioxide Level 29, Calcium Level 8.1L, Total Creatine Kinase 71 05/02/17 14:52: Activated Partial Thromboplast Time 71.9H CBC/BMP Laboratory Tests 05/02/17 06:34 Red Blood Count 3.48 L, Mean Corpuscular Volume 83.5, Mean Corpuscular Hemoglobin 29.1, Mean Corpuscular Hemoglobin Concent 34.8, Red Cell Distribution Width 14.1 05/02/17 06:35 Calcium Level 8.1 L Microbiology Microbiology 05/01/17 Stool Occult Blood (ELENI) - Final, Complete 04/30/17 Stool Occult Blood (ELENI) - Final, Complete 04/24/17 Stool Occult Blood (ELENI) - Final, Complete Nahum Mckinney MD May 02, 2017 15:51
[2017-05-02] MEDS: ALPRAZolam 0.25 MG TAB PO PRN (15:56)
[2017-05-02] MEDS: WARFARIN SOD 3 MG TAB PO SCH (18:45)
[2017-05-02] MEDS: oxyBUTYnin 5 MG TAB PO PRN (18:49)
[2017-05-02] MEDS: **NOTE PATIENT COMMENT** MISC XX SCH (18:51)
[2017-05-02] MEDS: SIMVASTATIN 40 MG TAB PO SCH (20:26)
[2017-05-02] MEDS: SERTRALINE 100 MG TAB PO SCH (20:26)
[2017-05-02] MEDS: EZETIMIBE 10 MG TAB (ZETIA) PO SCH (20:26)
[2017-05-02] MEDS: zolPIDEM TARTRATE 5 MG TAB PO PRN (20:28)
[2017-05-02 22:00] VITALS: BP 123/58
[2017-05-03] MEDS: HEPARIN DRIP 25,000 UNITS in APPROPRIATE DILUENT 1 EA IV SCH (05:01)
[2017-05-03 06:00] VITALS: BP 127/59
[2017-05-03 06:38] VITALS: BP 123/58
[2017-05-03] MEDS: SENNA 8.6 MG TAB (SENOKOT) PO SCH (06:38)
[2017-05-03] MEDS: CARVedilol 3.125 MG TAB PO SCH (06:38)
[2017-05-03] MEDS: buPROPion 75 MG TAB PO SCH (06:39)
[2017-05-03] MEDS: CALCIUM CARBONATE 500 MG CHEW U/D PO SCH ×2 (06:39→17:12)
[2017-05-03] MEDS: LIDOCAINE 5% (LIDODERM) PATCH TD SCH (06:39)
[2017-05-03] MEDS: raNITIdine SYRUP 150 MG/10 ML UDC PO SCH (06:39)
[2017-05-03] MEDS: HYDROmorphone (DILAUDID) 4 MG TAB PO PRN ×2 (06:48→13:05)
[2017-05-03 07:13] LABS: MEAN CORPUSCULAR HEMOGLOBIN 28.7 pg (27.0-33.0); MEAN CORPUSCULAR HGB CONC 34.5 g/dl (32.0-36.5); MEAN CORPUSCULAR VOLUME 83.1 fl (80.0-96.0); WHITE BLOOD COUNT 7.8 K/mm3 (4.0-10.0)
[2017-05-03 07:18] LABS: CALCIUM LEVEL 8.7 MG/DL (8.8-10.2); CREATININE FOR GFR 1.89 MG/DL (0.70-1.30); GLOMERULAR FILTRATION RATE 37.5 (>42); POTASSIUM SERUM 4.2 MEQ/L (3.5-5.1)
[2017-05-03 07:27] LABS: INR 3.13
[2017-05-03] MEDS: ALPRAZolam 0.25 MG TAB PO PRN (13:04)
[2017-05-03] MEDS: WARFARIN SOD 3 MG TAB PO SCH (17:12)
[2017-05-03] MEDS: **NOTE PATIENT COMMENT** MISC XX SCH (17:14)
--- NOTE | 2017-05-04 21:29 | CR ---
DATE OF CONSULTATION: 05/02/2017 REQUESTING PHYSICIAN: Nahum Mckinney MD. REASON FOR CONSULTATION: Acute renal failure. HISTORY OF PRESENT ILLNESS Mr. Aviles is a 71-year-old gentleman with known history of hypertension, prior aortic aneurysm repair, gastroesophageal reflux disease, anxiety and depression. The patient was recently diagnosed with bladder tumor and was admitted to [facility] for bridge therapy as he needed cystoscopy and transurethral resection of bladder tumor (TURBT). The patient underwent procedure initially on April 26. He had a cystoscopy, TURBT and a left ureteral stent placed. Since then, his kidney function worsened with increase in serum creatinine up to 1.99 mg/dL . On April 23, his BUN was 20 and creatinine 0.99, while his creatinine increased to 1.34 on April 26 and came down to 1.21 on 04/27. On 04/28, it went up to 1.7 and on 04/30 it was 1.99. On 04/29, his creatinine was noticed to be 1.26. However, most of his chemistry on that day was entirely different from his chemistries prior to April 29 and after. In any event, his kidney function has not improved and creatinine has been hanging at about 1.9 mg/dL range. A nephrology consultation was requested this morning. There is a concern about possibility of interstitial nephritis. I came to see the patient this morning. However, at that time he was in procedure for removal of his ureteral stent. I have seen him this afternoon and have noticed that he had his stent removed, but another one was placed. His Mario catheter has been removed. He remains on intravenous (IV) heparin drip at this point. PAST MEDICAL AND SURGICAL HISTORY Significant for: 1. Hypertension. 2. Hyperlipidemia. 3. Thoracic aortic aneurysm. 4. Aortic valve replacement and aortic aneurysm repair. 5. Depression. 6. Anxiety. 7. Gastroesophageal reflux disease. 8. History of bladder tumor, status post TURBT. MEDICATIONS: Current medications include: - Xanax 0.25 mg as needed for anxiety - Dulcolax suppository as needed for constipation - Wellbutrin 75 mg twice a day - calcium carbonate 1000 mg three times a day - carvedilol 3.125 mg twice a day - Colace 100 mg as needed for constipation - Zetia 10 mg bedtime - heparin drip - Dilaudid 4 mg every six hours as needed for severe pain - Zofran as needed for nausea - Percocet one tablet as needed for mild to moderate pain - MiraLax one packet daily as needed for constipation - Zantac 150 mg daily - Zoloft 100 mg at bedtime - simvastatin 80 mg at bedtime - Coumadin 6 mg at 5 p.m. - Ambien 5 mg as needed for insomnia ALLERGIES He has allergy to PREGABALIN. PERSONAL AND SOCIAL HISTORY: The patient does not smoke or drink. There is no history of drug use. FAMILY HISTORY: Is negative for genetic kidney disease. There is no history of end-stage renal disease. REVIEW OF SYSTEMS: The patient denies any fever or chills. Ears, nose and throat are unremarkable. Cardiovascular system is significant for history of aortic valve replacement and questionable history of atrial fibrillation. Respiratory system is negative for cough, hemoptysis or pleuritic type of chest pain. Gastrointestinal (GI) system is negative for nausea, vomiting or diarrhea. He denies any rectal bleeding or black colored stools. Genitourinary () system is as per history of present illness. The patient has another ureteral stent placed today. He recently had bladder tumors resected. Musculoskeletal system is negative for leg edema or any significant arthritis. Psychosocial system is significant for depression and anxiety. Hematological system is significant for chronic anticoagulation. He has history of gross hematuria following his procedure. Neurological system is negative for seizures or stroke. Skin is negative for rash or ulcers. PHYSICAL EXAMINATION: Temperature 98 degrees Fahrenheit, heart rate 64 per minute and respiratory rate 18 per minute. Blood pressure 141/62 mmHg and oxygen saturation 96% on room air. Head is atraumatic. Neck is supple and without jugular venous distention (JVD) or thyroid enlargement. Pupils equal and reactive to light and sclerae are anicteric. Ears, nose and throat are unremarkable. Heart exam reveals regular rhythm with prosthetic valve sounds. There is no pericardial friction rub. Lungs have no wheezing or rales. There is good bilateral air entry. Abdomen soft and nontender and bowel sounds are normal. There is no palpable organomegaly. Extremities have no cyanosis or clubbing. Skin has no rash or ulcers. Neurologically he is awake, alert and oriented times three. LABORATORY DATA: On admission, his BUN was 22 and creatinine 1.18 on April 22. On April 23, BUN was 20 and creatinine 0.99. On April 26, BUN 20, creatinine 1.34 and on April 28 BUN was 31 and creatinine 1.70. Today BUN is 24 and creatinine 1.84. On April 30, BUN was 26 and creatinine 1.99. Sodium is 143 and potassium 4.4 today. CPK is 71. Hemoglobin is 10.1 today and hematocrit 29.1. Renal ultrasound done on April 28 showed no hydronephrosis. Right kidney was 11.4 and left kidney 12.7 cm. PROBLEMS: 1. Acute renal failure. Most likely this is anatomical of obstruction caused by ureteral stent. He most likely had a blood clot or debris blocking the stent. He received only one dose of antibiotic which is not nephrotoxic and very unlikely to cause acute interstitial nephritis. He has not been on any diuretic, angiotension-converting enzyme (ONEIDA) inhibitor, angiotensin II receptor blockers (ARB), non-steroidal anti-inflammatory drugs (NSAIDs) or any other nephrotoxic medications. He reports good oral intake so dehydration is less likely. Even though renal ultrasound on April 28 did not show any hydronephrosis, blocked ureteral stent is most likely etiology of his acute renal failure and hydronephrosis may have not developed as yet. He had his stent replaced today and kidney function is likely to improve over next 24-48 hours. I suggest that the patient take liberal oral fluid intake. I have discussed with him and suggested IV fluid; however, the patient declined it. I have encouraged him to drink fluid liberally. Renal function should be checked tomorrow morning. Should his kidney function not improve in next 48 hours, then nuclear renal scan could be considered to evaluate the flow and function. 2. Bladder tumor, status post transurethral resection of bladder tumor (TURBT). The patient is doing well and did have some mild hematuria. He remains on IV heparin drip for bridge therapy. He is also on Coumadin now and his INR is 2.12 today. I thank you for involving me in the care of Mr. Aviles. I will follow him along with you.
--- NOTE | 2017-05-05 06:14 | RO ---
DATE OF PROCEDURE: 05/02/2017 PREPROCEDURE DIAGNOSIS: Gross hematuria. POSTPROCEDURE DIAGNOSIS: Gross hematuria. PROCEDURE: Cystoscopy, left ureteroscopy, left ureteral stent exchange. SURGEON: Dr. Chris Sommer CALL CENTER ANALYST: None. ANESTHESIA: MAC. OPERATIVE INDICATIONS: This is a 71-year-old male who underwent a transurethral resection of bladder tumor and left ureteral stent placement approximately 1 week ago. He has been in the hospital getting bridged back onto Coumadin. While doing that, he has continued to have persistent hematuria. He was brought to the operating room today to potentially remove his left ureteral stent. The thought that it was the stent that was causing irritation to the bladder and causing persistent hematuria. DESCRIPTION OF PROCEDURE: The patient was brought to the operating room where MAC anesthesia was administered. Prophylactic antibiotics were infused. He was then placed in dorsal lithotomy position, prepped and draped in the usual sterile fashion. A rigid cystoscope was inserted into the urethral meatus and advanced into the bladder. Once within the bladder, it was thoroughly examined. Of note, the left ureteral stent was in place. The resection bed was also noted in the left bladder wall just above the ureteral orifice. Of note, there was no bleeding from the bladder itself. There was only bleeding coming from within the stent. At this point, the stent was removed and I observed the ureteral orifice and there continued to be bleeding coming from the left ureteral orifice. At this point, decision was made to actually take a look up into the left ureter and the kidney. I then advanced two wires up the left collecting system. One of these wires was secured to the drape to serve as a safety wire. I then advanced a flexible ureteroscope over the working wire. I examined the ureter thoroughly and there were no abnormalities within the ureter. Of note, the bleeding was coming from the kidney itself. I then went more proximally into the kidney and the patient had a moderate amount of blood clot within the left kidney. Other than the blood clot, I could not see any abnormalities. Given the large amount of blood clot, a decision was made to actually replace the stent as there was concern that the blood clot in the kidney would obstruct the kidney. At this point, the ureteroscope was removed and the safety wire was utilized to advance a #7-Croatian x 22-32 cm JJ ureteral stent up into the left collecting system. The wire was then removed and there was an adequate curl to the stent in the bladder. The bladder was then emptied of all fluid and this marked the conclusion of the procedure. The patient was then taken out of dorsal lithotomy position, awakened from anesthesia and transported to the recovery room in stable condition. ESTIMATED BLOOD LOSS: 5 mL. COMPLICATIONS: None. SPECIMENS: None. PLAN: The patient's stent will be left in place for a few weeks until I am certain that a blood clot has broken down in the left kidney. We will now this once his urine clears. Of note, the patient will probably continue to have the appearance of hematuria as long as that clot is still there in the left kidney and it will probably take a week or two for that to be broken down and for the hematuria to clear up.
--- NOTE | 2017-05-05 07:05 | IPN ---
DATE OF SERVICE: 05/03/2017 SUBJECTIVE: The patient was seen and examined at the bedside this morning. He was sitting in the bed. He has no complaints at this time. He continues to be on a heparin drip. Renal function is stable. His creatinine is stable at 1.8 at this time. REVIEW OF SYSTEMS: The patient denies any fever or chills, rigors, headache, nausea or vomiting, chest pain, shortness of breath, pain of the abdomen, constipation or diarrhea, the rest of the review of systems is negative. OBJECTIVE: VITAL SIGNS: Temperature 989.8 degrees Fahrenheit , blood pressure 123/58, pulse 61, respiratory rate 17, saturating 95% on room air. Intake and output of urine: Urine output recorded as 2.1 liters yesterday and 1500 mL so far today since overnight. Weight in the bed scale is 82.6 kg. PHYSICAL EXAMINATION: GENERAL: The patient is awake, alert, oriented times three sitting in the bed, in no apparent distress. HEAD/NECK: Extraocular muscles intact. Pupils equal, round, and reactive to light. Moist mucous membranes. Neck is supple. There is no jugular venous distention (JVD). CARDIOVASCULAR: S1, S2. Aortic valvular click, otherwise no murmurs, rubs, gallops. RESPIRATORY: Clear to auscultation bilaterally, bilateral equal air entry, no rales or rhonchi. ABDOMEN: Soft, positive bowel sounds, nontender, no ascites, no organomegaly. MUSCULOSKELETAL: No clubbing or cyanosis, pulses are 2+. CENTRAL NERVOUS SYSTEM (HYDRAULIC JACK MECHANIC): No focal neurological deficits. Power is 5/5 in all extremities. SKIN: No rashes or ulcers. PSYCHIATRIC: Normal mood and affect. LABORATORY REVIEW: CBC showed a WBC 7.8, hemoglobin 10, platelets 184. INR is 3.1 today. BMP shows Sodium 141, potassium 4.2, chloride 104, bicarbonate 29, BUN 28, creatinine 1.8 it was 1.8 yesterday as well. Calcium 8.7. CURRENT INPATIENT MEDICATIONS: The patient's medications were all reviewed by me. He continues to be on intravenous (IV) heparin drip at this time. There is no other change in the medications today as compared with yesterday. ASSESSMENT: This is a 71-year-old male with bladder tumor, status post transurethral resection of bladder tumor, postoperative course was complicated by acute kidney injury. PLAN: 1. Acute kidney injury. It was most likely obstructive in nature. The patient's baseline creatinine was around 1 on admission. His creatinine has bumped up to 1.8. The patient got the removal of the left sided renal clot. He is making a good amount of urine. Renal function is expected to improve. No need of IV fluid hydration at this time. 2. Hypertension. Blood pressure is acceptable at this time. Continue current dose of Coreg 3.125 mg by mouth twice a day. 3. Mechanical aortic valve. The patient's INR is therapeutic at this time. Heparin drip can be stopped. Coumadin dosage is as per primary team. 4. Bladder tumor. 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 The patient got a transurethral resection of the bladder tumor on December 24, 2016. The rest of the management is as per the urology service.
--- NOTE | 2017-05-05 17:41 | DSES ---
DATE OF ADMISSION: 04/22/2017 DATE OF DISCHARGE: 05/03/2017 DIAGNOSES: 1. Bladder tumor. Was found to be high-grade urothelial carcinoma. 2. Acute on chronic renal insufficiency. 3. Mechanical aortic valve replacement. 4. Chronic anticoagulant therapy with warfarin. 5. Admission for bridge therapy. 6. Hypertension. 7. Chronic anxiety and depression. 8. Chronic anemia. 9. History of postherpetic neuralgia. BRIEF HISTORY AND PHYSICAL: This is a 71-year-old male admitted initially for bridge therapy so that he could have cystoscopy and biopsy of bladder tumor. He had been having some hematuria. He had chronic anticoagulation related to having a mechanical aortic valve replacement. Initial examination showed blood pressure 130/67, pulse 56 and regular, respirations 18, temperature 98.6. He had lungs clear. Heart had a regular rhythm with prosthetic aortic valvular sounds audible. There was no edema. LABORATORY DATA: The initial CBC showed a hemoglobin 11.6. On 04/25/2017, it was 12.5, on 04/29/2017, it was 8.9, but on 04/30/2017, it was 10.5, and at discharge it was 10.0. His admission INR was 1.97. He had multiple PTTs done. On 04/25/2017, his INR was 1.24, on 04/26/2017, it was 1.1, on 04/29/2017, INR 1.68, subsequently 1.56, 1.60, 2.12, and at discharge it was 3.13. Admission BUN and creatinine were 22 and 1.8, respectively. On 04/25/2017, was 20 and 1.4, on 04/26/2017, it was 20 and 1.34, on 04/28/2017, it was 31 and 1.7, on 04/30/2017, it was 26 and 1.9, on 05/03/2017, it was 28 and 1.89. Potassium was 4.2 on 05/03/2017, but had been down to 2.9 on 04/29/2017. COURSE IN THE FACILITY: He was admitted for bridge therapy and placed on IV heparin and continued off his Coumadin, continued most of this at home medications, although he was taken off of his hydrochlorothiazide. On 04/25/2017, Dr. Sommer did his cystoscopy and transurethral resection of bladder tumor, he had a left retrograde pyelogram and a left ureteral stent placement. He did have some increase in his BUN and creatinine that resulted in him having some additional fluids administered IV and encouraged to drink by mouth. Despite this however, his creatinine remained stable at about 1.89. He had the stent on the left removed on 05/02/2017. The retrograde pyelogram showed proper placement of the ureteral stents. Renal ultrasound showed no hydronephrosis and flat plate of the abdomen was done to assess proper stent placement. It appears in reviewing the records that have when he had his stent addressed on 05/02/2017, that they replaced it with another stent. After his surgery, the patient was put back on his Coumadin and continued on the heparin until the Coumadin became therapeutic at 2.5. He did receive some additional doses above and beyond his usual dose of warfarin in order to get his INR to come up. On the day of his discharge, he was doing pretty well. He had no sort of bladder pain or spasm. He still had hematuria. His lungs were clear. His heart had a regular rhythm with a prosthetic valvular click. Abdomen was soft and nontender. There was no edema. He was somewhat anxious but I suspect that this was his normal status. Plans were made for him to return home that day as his INR was now therapeutic at 3.1. Heparin was discontinued. He is to be on a low-sodium diet and drink at least 3 quarts of fluid daily. Activity as tolerated. He is to be on warfarin 4 mg daily except Friday when he takes 6 mg, Dilaudid 4 mg every 6 hours as needed for pain, Wellbutrin 75 mg twice a day, Tums 1000 mg twice a day, Coreg 325 mg daily, Lidoderm patch one daily to his right shoulder, ranitidine 150 mg daily. He is to be on Vytorin 80/10 mg daily, sertraline 100 mg daily, Ambien 5 mg at bedtime as needed for sleep, Xanax 0.5 mg every 12 hours as needed for anxiety. Recommended that he have stool softeners for constipation. He should have PT/INR, BMP and CBC done on 05/05/2017 or 05/06/2017. He should followup the next week with Dr. Sommer. Plans are being made for him to have BCG instillations into his bladder when things are healed. He should followup medically with Dr. Malik within the next several weeks. cc: Casper Malik MD [facility]
== END 2017-05-03 18:22 | disposition home or self-care (01) | DRG 461 ==
LOC: M MS5PR 16:28
PROVIDERS: ADMIT Family Medicine; ATTEND Family Medicine
PROC: 0TBB8ZX Excision of Bladder, Via Natural or Artificial Opening Endoscopic, Diagnostic (ICD-10-PCS; 2017-04-25)
PROC: 0TB78ZX Excision of Left Ureter, Via Natural or Artificial Opening Endoscopic, Diagnostic (ICD-10-PCS; principal; 2017-04-25 07:30)
PROC: 0T778DZ Dilation of Left Ureter with Intraluminal Device, Via Natural or Artificial Opening Endoscopic (ICD-10-PCS; 2017-04-25 07:30)
PROC: 0T29X0Z Change Drainage Device in Ureter, External Approach (ICD-10-PCS; 2017-05-02)
DX: C66.2 Malignant neoplasm of left ureter (principal); N17.9 Acute kidney failure, unspecified; B02.29 Other postherpetic nervous system involvement; D64.9 Anemia, unspecified; N18.3 Chronic kidney disease, stage 3 (moderate); I12.9 Hypertensive chronic kidney disease with stage 1 through stage 4 chronic kidney disease, or unspecified chronic kidney disease; T83.83XA Hemorrhage due to genitourinary prosthetic devices, implants and grafts, initial encounter; F41.1 Generalized anxiety disorder; F32.9 Major depressive disorder, single episode, unspecified; K59.00 Constipation, unspecified; Y83.1 Surgical operation with implant of artificial internal device as the cause of abnormal reaction of the patient, or of later complication, without mention of misadventure at the time of the procedure; K21.9 Gastro-esophageal reflux disease without esophagitis; L57.0 Actinic keratosis; E55.9 Vitamin D deficiency, unspecified; M17.0 Bilateral primary osteoarthritis of knee; E78.5 Hyperlipidemia, unspecified; Z95.2 Presence of prosthetic heart valve; Z79.899 Other long term (current) drug therapy; Z88.8 Allergy status to other drugs, medicaments and biological substances; Z79.01 Long term (current) use of anticoagulants; E66.3 Overweight; Z87.891 Personal history of nicotine dependence; Z79.82 Long term (current) use of aspirin; Z68.28 Body mass index [BMI] 28.0-28.9, adult

== ENCOUNTER → 2017-05-05 | Outpatient (REF) | payer OTHER, MEDICARE, BC ==
[~2017-05-05] MED LIST changes: +ALPR0.5T3 PO; +BUPR75TA5 PO; +DRIS50002 PO; +FLUO1CRE4 TOP; +LOSA50TA20 PO; +POTA20TA PO; +RANI75TA9 PO; +SENN1TAB10 PO; +SIME80TA PO; +ZOLP5TAB PO; +[UNRECOGNIZED DRUG - OTHER] TOP
[2017-05-05 15:51] LABS: INR 2.91
[2017-05-05 16:02] LABS: CALCIUM LEVEL 7.8 MG/DL (8.8-10.2); CREATININE FOR GFR 1.64 MG/DL (0.70-1.30); GLOMERULAR FILTRATION RATE 44.2 (>42); POTASSIUM SERUM 4.3 MEQ/L (3.5-5.1)
[2017-05-05 16:09] LABS: MEAN CORPUSCULAR HEMOGLOBIN 29.3 pg (27.0-33.0); MEAN CORPUSCULAR VOLUME 86.2 fl (80.0-96.0); RED CELL DISTRIBUTION WIDTH 14.7 % (11.5-14.5); WHITE BLOOD COUNT 10.2 K/mm3 (4.0-10.0)
== END ==
LOC: M SFHCSACK 10:15
PROVIDERS: ATTEND Family Medicine
DX: D49.4 Neoplasm of unspecified behavior of bladder (principal); N18.3 Chronic kidney disease, stage 3 (moderate); Z79.01 Long term (current) use of anticoagulants

== ENCOUNTER → 2017-06-06 | Outpatient (REF) | payer OTHER, MEDICARE, BC ==
[2017-06-06 12:09] LABS: MEAN CORPUSCULAR HEMOGLOBIN 29.8 pg (27.0-33.0); MEAN CORPUSCULAR HGB CONC 35.3 g/dl (32.0-36.5); MEAN CORPUSCULAR VOLUME 84.2 fl (80.0-96.0); RED CELL DISTRIBUTION WIDTH 14.3 % (11.5-14.5); WHITE BLOOD COUNT 6.6 K/mm3 (4.0-10.0)
[2017-06-06 12:18] LABS: ALBUMIN 3.6 GM/DL (3.2-5.2); ALBUMIN/GLOBULIN RATIO 1.16 (1.00-1.93); ALKALINE PHOSPHATASE 91 U/L (45-117); ALT/SGPT 18 U/L (12-78); ANION GAP 3 MEQ/L (8-16); AST/SGOT 18 U/L (15-37); BILIRUBIN,TOTAL 0.5 MG/DL (0.2-1.0); BLOOD UREA NITROGEN 17 MG/DL (7-18); CALCIUM LEVEL 8.5 MG/DL (8.8-10.2); CARBON DIOXIDE LEVEL 33 MEQ/L (21-32); CHLORIDE LEVEL 106 MEQ/L (98-107); CREATININE FOR GFR 1.22 MG/DL (0.70-1.30); GLOMERULAR FILTRATION RATE > 60.0 (>42); GLUCOSE, FASTING 69 MG/DL (83-110); POTASSIUM SERUM 4.6 MEQ/L (3.5-5.1); SODIUM LEVEL 142 MEQ/L (136-145); TOTAL PROTEIN 6.7 GM/DL (6.4-8.2)
[2017-06-06 12:24] LABS: RENAL EPITHELIAL CELLS 3 /HPF
== END ==
LOC: M LABDRAWP 11:39
PROVIDERS: ATTEND Urology
DX: C67.9 Malignant neoplasm of bladder, unspecified (principal)

== ENCOUNTER → 2017-06-16 | Outpatient (REF) | payer OTHER, MEDICARE, BC | LOC: M LABSMT 11:59 | PROVIDERS: ATTEND Urology | DX: C67.9 Malignant neoplasm of bladder, unspecified (principal) ==

== ENCOUNTER → 2017-06-23 | Outpatient (REF) | payer OTHER, MEDICARE, BC | LOC: M SMT 15:36 | PROVIDERS: ATTEND Nurse Practitioner Women's Health | DX: R31.29 Other microscopic hematuria (principal) ==

== ENCOUNTER → 2017-06-24 | Outpatient (CLI) | payer OTHER, MEDICARE, BC ==
[2017-06-24 17:24] LABS: INR 3.57
== END ==
LOC: M WUC 15:11
PROVIDERS: ATTEND Nurse Practitioner Family
DX: I35.9 Nonrheumatic aortic valve disorder, unspecified (principal)

== ENCOUNTER → 2017-08-18 | Outpatient (REF) | payer OTHER, MEDICARE, BC ==
[2017-08-18 14:17] LABS: BASO % 0.6 % (0.0-1.0); EOS # 0.3 10^3/uL (0.0-0.50); EOS % 5.4 % (0.0-3.0); IMMATURE GRANULOCYTE % 0.5 % (0-0); LYMPH # 1.6 10^3/uL (1.5-4.5); MEAN CORPUSCULAR HEMOGLOBIN 27.1 pg (27.0-33.0); MEAN CORPUSCULAR HGB CONC 32.5 g/dl (32.0-36.5); MEAN CORPUSCULAR VOLUME 83.4 fl (80.0-96.0); MONO # 0.9 10^3/uL (0.0-0.8); NEUTROPHILS # 3.4 10^3/uL (1.8-7.7); NEUTROPHILS % 53.5 % (36.0-66.0); PLATELET COUNT, AUTOMATED 194 10^3/uL (150-450); RED CELL DISTRIBUTION WIDTH 14.4 % (11.5-14.5); WHITE BLOOD COUNT 6.3 10^3/uL (4.0-10.0)
[2017-08-18 14:18] LABS: ALBUMIN 3.6 GM/DL (3.2-5.2); ALBUMIN/GLOBULIN RATIO 1.06 (1.00-1.93); ALKALINE PHOSPHATASE 101 U/L (45-117); ALT/SGPT 19 U/L (12-78); ANION GAP 5 MEQ/L (8-16); AST/SGOT 20 U/L (7-37); BILIRUBIN,TOTAL 0.5 MG/DL (0.2-1.0); BLOOD UREA NITROGEN 19 MG/DL (7-18); CALCIUM LEVEL 8.3 MG/DL (8.8-10.2); CARBON DIOXIDE LEVEL 32 MEQ/L (21-32); CHLORIDE LEVEL 106 MEQ/L (98-107); CREATININE FOR GFR 1.17 MG/DL (0.70-1.30); FERRITIN 42 NG/ML (26-388); GLOMERULAR FILTRATION RATE > 60.0 (>42); GLUCOSE, FASTING 85 MG/DL (83-110); PERCENT SATURATION 23.4 % (19.7-50.0); POTASSIUM SERUM 4.6 MEQ/L (3.5-5.1); SODIUM LEVEL 143 MEQ/L (136-145); TOTAL IRON BINDING CAPACITY 286 UG/DL (250-450)
== END ==
LOC: M SFHCPLAZ 10:37
PROVIDERS: ATTEND Family Medicine
DX: N18.3 Chronic kidney disease, stage 3 (moderate) (principal)

== ENCOUNTER → 2017-09-02 | Outpatient (REF) | payer OTHER, MEDICARE, BC | LOC: M SMT 13:54 | PROVIDERS: ATTEND Urology | DX: C67.9 Malignant neoplasm of bladder, unspecified (principal) ==

== ENCOUNTER → 2017-10-14 | Outpatient (REF) | payer OTHER ==
[2017-10-14 20:17] LABS: APPEARANCE, URINE CLEAR (CLEAR); BACTERIA, URINE AUTO NEGATIVE (NEGATIVE); BILIRUBIN, URINE AUTO NEGATIVE (NEGATIVE); BLOOD, URINE BLOOD 2+ (NEGATIVE); COLOR, URINE YELLOW (YELLOW); GLUCOSE, URINE (UA) AUTO NEGATIVE (NEGATIVE); KETONE, URINE AUTO NEGATIVE (NEGATIVE); LEUKOCYTE ESTERASE, URINE AUTO NEGATIVE (NEGATIVE); MUCUS, URINE SMALL (NEGATIVE); NITRITE, URINE AUTO NEGATIVE (NEGATIVE); PROTEIN, URINE AUTO NEGATIVE (NEGATIVE); RBC, URINE AUTO 8 /HPF (0-3); SPECIFIC GRAVITY URINE AUTO 1.011 (1.002-1.035); SQUAMOUS EPITHELIAL CELL UR AU 0 /HPF (0-6); UROBILINOGEN, URINE AUTO 0.2 mg/dL (0.0-2.0); WBC, URINE AUTO 0 /HPF (0-3)
== END ==
LOC: M SMT 17:08
DX: C67.9 Malignant neoplasm of bladder, unspecified (principal)

== ENCOUNTER → 2017-10-15 | Outpatient (CLI) | payer BC, OTHER ==
[2017-10-15 20:06] LABS: HEMATOCRIT 37.6 % (42.0-52.0); HEMOGLOBIN 12.1 g/dl (14.0-18.0); MEAN CORPUSCULAR HEMOGLOBIN 27.2 pg (27.0-33.0); MEAN CORPUSCULAR HGB CONC 32.2 g/dl (32.0-36.5); MEAN CORPUSCULAR VOLUME 84.5 fl (80.0-96.0); PLATELET COUNT, AUTOMATED 189 10^3/uL (150-450); RED BLOOD COUNT 4.45 10^6/uL (4.30-6.10); RED CELL DISTRIBUTION WIDTH 14.9 % (11.5-14.5); WHITE BLOOD COUNT 8.1 10^3/uL (4.0-10.0)
[2017-10-15 20:42] LABS: ALBUMIN/GLOBULIN RATIO 1.25 (1.00-1.93); ALKALINE PHOSPHATASE 102 U/L (45-117); ALT/SGPT 14 U/L (12-78); ANION GAP 2 MEQ/L (8-16); AST/SGOT 20 U/L (7-37); BILIRUBIN,TOTAL 0.6 MG/DL (0.2-1.0); BLOOD UREA NITROGEN 16 MG/DL (7-18); CALCIUM LEVEL 8.5 MG/DL (8.8-10.2); CARBON DIOXIDE LEVEL 32 MEQ/L (21-32); CHLORIDE LEVEL 107 MEQ/L (98-107); GLOMERULAR FILTRATION RATE > 60.0 (>42); GLUCOSE, FASTING 78 MG/DL (70-100); POTASSIUM SERUM 4.7 MEQ/L (3.5-5.1); SODIUM LEVEL 141 MEQ/L (136-145); TOTAL PROTEIN 7.2 GM/DL (6.4-8.2)
== END ==
LOC: M SMT 12:08
DX: C67.9 Malignant neoplasm of bladder, unspecified (principal)

== ENCOUNTER → 2017-10-22 | Outpatient (REF) | payer OTHER, MEDICARE, BC ==
[2017-10-22 14:50] LABS: INR 2.24; PROTHROMBIN TIME 25.6 SECONDS (12.4-14.5)
== END ==
LOC: M LAB REF 14:26
DX: I35.9 Nonrheumatic aortic valve disorder, unspecified (principal)

== ENCOUNTER → 2017-10-30 | Outpatient (REF) | payer OTHER ==
[2017-10-30 13:42] LABS: APPEARANCE, URINE CLEAR (CLEAR); BACTERIA, URINE AUTO NEGATIVE (NEGATIVE); BILIRUBIN, URINE AUTO NEGATIVE (NEGATIVE); BLOOD, URINE BLOOD 2+ (NEGATIVE); COLOR, URINE STRAW (YELLOW); GLUCOSE, URINE (UA) AUTO NEGATIVE (NEGATIVE); KETONE, URINE AUTO NEGATIVE (NEGATIVE); LEUKOCYTE ESTERASE, URINE AUTO TRACE (NEGATIVE); MUCUS, URINE SMALL (NEGATIVE); NITRITE, URINE AUTO NEGATIVE (NEGATIVE); PROTEIN, URINE AUTO NEGATIVE (NEGATIVE); RBC, URINE AUTO 3 /HPF (0-3); SPECIFIC GRAVITY URINE AUTO 1.006 (1.002-1.035); SQUAMOUS EPITHELIAL CELL UR AU 0 /HPF (0-6); UROBILINOGEN, URINE AUTO 0.2 mg/dL (0.0-2.0); WBC, URINE AUTO 4 /HPF (0-3)
== END ==
LOC: M SMT 13:18
DX: R30.0 Dysuria (principal); R31.9 Hematuria, unspecified

== ENCOUNTER → 2017-12-02 | Outpatient (REF) | payer OTHER, MEDICARE, BC | LOC: M SMT 13:14 | DX: C67.9 Malignant neoplasm of bladder, unspecified (principal) ==

== ENCOUNTER → 2017-12-15 | Outpatient (REF) | payer OTHER, MEDICARE, BC ==
[2017-12-15 11:44] LABS: BASO # 0.1 10^3/uL (0.0-0.2); BASO % 0.7 % (0.0-1.0); EOS # 0.4 10^3/uL (0.0-0.50); EOS % 4.9 % (0.0-3.0); HEMOGLOBIN 11.6 g/dl (13.5-17.5); IMMATURE GRANULOCYTE % 0.3 % (0-3.0); LYMPH # 1.5 10^3/uL (1.5-4.5); LYMPH % 19.7 % (24.0-44.0); MEAN CORPUSCULAR HEMOGLOBIN 27.5 pg (27.0-33.0); MEAN CORPUSCULAR HGB CONC 32.2 g/dl (32.0-36.5); MEAN CORPUSCULAR VOLUME 85.3 fl (80.0-96.0); MONO # 0.8 10^3/uL (0.0-0.8); MONO % 10.5 % (0.0-5.0); NEUTROPHILS # 4.9 10^3/uL (1.8-7.7); NEUTROPHILS % 63.9 % (36.0-66.0); PLATELET COUNT, AUTOMATED 164 10^3/uL (150-450); RED BLOOD COUNT 4.22 10^6/uL (4.30-6.10); RED CELL DISTRIBUTION WIDTH 14.6 % (11.5-14.5); RETIC HEMOGLOBIN EQUIVALENT 33.1 pg (24-36); RETICULOCYTE # 90.7 10^9/L (17-77); RETICULOCYTE % 2.2 % (0.5-1.5); WHITE BLOOD COUNT 7.7 10^3/uL (4.0-10.0)
[2017-12-15 11:58] LABS: VITAMIN B12 LEVEL 534 PG/ML (247-911)
[2017-12-15 12:51] LABS: ALBUMIN 3.8 GM/DL (3.2-5.2); ALBUMIN/GLOBULIN RATIO 1.15 (1.00-1.93); ALKALINE PHOSPHATASE 101 U/L (45-117); ALT/SGPT 22 U/L (12-78); ANION GAP 8 MEQ/L (8-16); AST/SGOT 25 U/L (7-37); BILIRUBIN,TOTAL 0.7 MG/DL (0.2-1.0); BLOOD UREA NITROGEN 22 MG/DL (7-18); CALCIUM LEVEL 8.1 MG/DL (8.8-10.2); CARBON DIOXIDE LEVEL 29 MEQ/L (21-32); CHLORIDE LEVEL 106 MEQ/L (98-107); CHOLESTEROL LEVEL 136 MG/DL (<200); CREATININE FOR GFR 1.25 MG/DL (0.70-1.30); FREE T4 1.16 NG/DL (0.76-1.46); GLOMERULAR FILTRATION RATE > 60.0 (>42); GLUCOSE, FASTING 92 MG/DL (70-100); HDL CHOLESTEROL 34 MG/DL (>40); NON-HDL-C 102 MG/DL; POTASSIUM SERUM 3.9 MEQ/L (3.5-5.1); PSA SCREENING 3.26 NG/ML (< 4.0); SODIUM LEVEL 143 MEQ/L (136-145); THYROID STIMULATING HORMONE 0.954 uIU/ML (0.358-3.740); TOTAL PROTEIN 7.1 GM/DL (6.4-8.2); TRIGLYCERIDES LEVEL 115 MG/DL (<150)
[2017-12-16 12:16] LABS: PRETREATED FOLATE FOR RBCFOL 9.9 NG/ML; RBC FOLATE 577.5 NG/ML (280-791)
== END ==
LOC: M SFHCPLAZ 08:48
DX: E78.2 Mixed hyperlipidemia (principal); Z12.5 Encounter for screening for malignant neoplasm of prostate; D64.9 Anemia, unspecified
CPT/HCPCS: 84443

== ENCOUNTER → 2018-01-13 | Outpatient (REF) | payer OTHER, MEDICARE, BC ==
[2018-01-13 13:40] LABS: APPEARANCE, URINE CLEAR (CLEAR); BACTERIA, URINE AUTO 1+ (NEGATIVE); BILIRUBIN, URINE AUTO NEGATIVE (NEGATIVE); BLOOD, URINE BLOOD 2+ (NEGATIVE); COLOR, URINE YELLOW (YELLOW); GLUCOSE, URINE (UA) AUTO NEGATIVE (NEGATIVE); KETONE, URINE AUTO NEGATIVE (NEGATIVE); LEUKOCYTE ESTERASE, URINE AUTO NEGATIVE (NEGATIVE); NITRITE, URINE AUTO NEGATIVE (NEGATIVE); PROTEIN, URINE AUTO NEGATIVE (NEGATIVE); RBC, URINE AUTO 3 /HPF (0-3); SPECIFIC GRAVITY URINE AUTO 1.008 (1.002-1.035); SQUAMOUS EPITHELIAL CELL UR AU 0 /HPF (0-6); UROBILINOGEN, URINE AUTO 0.2 mg/dL (0.0-2.0); WBC, URINE AUTO 1 /HPF (0-3)
== END ==
LOC: M SMT 13:13
DX: C67.9 Malignant neoplasm of bladder, unspecified (principal)
CPT/HCPCS: 81001

== ENCOUNTER → 2018-02-25 | Outpatient (REF) | payer OTHER | LOC: M SMT 12:48 | DX: C67.9 Malignant neoplasm of bladder, unspecified (principal) ==

== ENCOUNTER → 2018-04-23 | Outpatient (REF) | payer OTHER, MEDICARE, BC ==
[2018-04-23 16:20] LABS: INR 2.07; PROTHROMBIN TIME 23.7 SECONDS (12.1-14.4)
[2018-04-23 16:21] LABS: PARTIAL THROMBOPLASTIN TIME 54.9 SECONDS (25.4-37.6)
[2018-04-23 16:23] LABS: ALBUMIN 3.8 GM/DL (3.2-5.2); ALBUMIN/GLOBULIN RATIO 1.09 (1.00-1.93); ALKALINE PHOSPHATASE 109 U/L (45-117); ALT/SGPT 25 U/L (12-78); ANION GAP 8 MEQ/L (8-16); AST/SGOT 27 U/L (7-37); BILIRUBIN,TOTAL 0.7 MG/DL (0.2-1.0); BLOOD UREA NITROGEN 17 MG/DL (7-18); CALCIUM LEVEL 8.2 MG/DL (8.8-10.2); CARBON DIOXIDE LEVEL 30 MEQ/L (21-32); CHLORIDE LEVEL 104 MEQ/L (98-107); GLOMERULAR FILTRATION RATE 57.6 (>42); GLUCOSE, FASTING 85 MG/DL (70-100); MAGNESIUM LEVEL 2.3 MG/DL (1.8-2.4); POTASSIUM SERUM 3.9 MEQ/L (3.5-5.1); SODIUM LEVEL 142 MEQ/L (136-145); TOTAL PROTEIN 7.3 GM/DL (6.4-8.2)
[2018-04-23 16:31] LABS: PTH INTACT 157.2 PG/ML (18.5-88.0)
[2018-04-23 16:38] LABS: ESTIMATED AVERAGE GLUCOSE 103 MG/DL (60-110); HEMOGLOBIN A1c 5.2 %
[2018-04-23 16:41] LABS: BASO % 0.5 % (0.0-1.0); EOS # 0.3 10^3/uL (0.0-0.50); EOS % 4.5 % (0.0-3.0); HEMATOCRIT 35.9 % (42.0-52.0); HEMOGLOBIN 11.4 g/dl (13.5-17.5); IMMATURE GRANULOCYTE % 0.3 % (0-3.0); LYMPH # 1.9 10^3/uL (1.5-4.5); LYMPH % 24.7 % (24.0-44.0); MEAN CORPUSCULAR HEMOGLOBIN 27.5 pg (27.0-33.0); MEAN CORPUSCULAR HGB CONC 31.8 g/dl (32.0-36.5); MEAN CORPUSCULAR VOLUME 86.7 fl (80.0-96.0); MONO % 12.9 % (0.0-5.0); NEUTROPHILS # 4.3 10^3/uL (1.8-7.7); NEUTROPHILS % 57.1 % (36.0-66.0); PLATELET COUNT, AUTOMATED 187 10^3/uL (150-450); RED BLOOD COUNT 4.14 10^6/uL (4.30-6.10); RED CELL DISTRIBUTION WIDTH 14.6 % (11.5-14.5); WHITE BLOOD COUNT 7.5 10^3/uL (4.0-10.0)
[2018-04-28 12:11] LABS: ALBUMIN 4.21 GM/DL (3.29-5.55); ALBUMIN % 57.7 % (55.8-66.1); ALPHA-1-GLOBULIN % 5.3 % (2.9-4.9); ALPHA-1-GLOBULINS 0.39 GM/DL (0.17-0.41); ALPHA-2-GLOBULINS 0.61 GM/DL (0.42-0.99); ALPHA-2-GLOBULINS % 8.3 % (7.1-11.8); BETA-1-GLOBULINS % 6.8 % (4.7-7.2); BETA-2-GLOBULINS % 5.5 % (3.2-6.5); GAMMA GLOBULIN % 16.4 % (11.1-18.8)
== END ==
LOC: M SFHCPLAZ 12:15
DX: N18.3 Chronic kidney disease, stage 3 (moderate) (principal); R73.01 Impaired fasting glucose; I48.91 Unspecified atrial fibrillation; E55.9 Vitamin D deficiency, unspecified
CPT/HCPCS: 83735

== ENCOUNTER → 2018-05-14 | Outpatient (CLI) | payer OTHER, MEDICARE, BC | LOC: M PAIN 09:30 | DX: B02.29 Other postherpetic nervous system involvement (principal); G89.4 Chronic pain syndrome; I12.9 Hypertensive chronic kidney disease with stage 1 through stage 4 chronic kidney disease, or unspecified chronic kidney disease; N18.3 Chronic kidney disease, stage 3 (moderate); I48.91 Unspecified atrial fibrillation; F32.9 Major depressive disorder, single episode, unspecified; E78.5 Hyperlipidemia, unspecified; D63.8 Anemia in other chronic diseases classified elsewhere; Z79.01 Long term (current) use of anticoagulants; Z79.82 Long term (current) use of aspirin; Z79.899 Other long term (current) drug therapy; Z95.2 Presence of prosthetic heart valve; Z87.891 Personal history of nicotine dependence | CPT/HCPCS: G0463 ==

== ENCOUNTER → 2018-06-02 | Outpatient (REF) | payer OTHER, MEDICARE, BC | LOC: M SMT 13:26 | DX: F32.9 Major depressive disorder, single episode, unspecified (principal) ==

== ENCOUNTER → 2018-06-10 | Outpatient (CLI) | payer OTHER, MEDICARE, BC | LOC: M PAIN 08:30 | DX: G89.4 Chronic pain syndrome (principal); B02.29 Other postherpetic nervous system involvement; Z95.2 Presence of prosthetic heart valve; I13.10 Hypertensive heart and chronic kidney disease without heart failure, with stage 1 through stage 4 chronic kidney disease, or unspecified chronic kidney disease; N18.3 Chronic kidney disease, stage 3 (moderate); I48.0 Paroxysmal atrial fibrillation; E78.5 Hyperlipidemia, unspecified; D64.9 Anemia, unspecified; E66.3 Overweight; Z68.30 Body mass index [BMI] 30.0-30.9, adult; Z87.891 Personal history of nicotine dependence; Z85.59 Personal history of malignant neoplasm of other urinary tract organ; Z79.01 Long term (current) use of anticoagulants; Z79.82 Long term (current) use of aspirin; Z79.899 Other long term (current) drug therapy | CPT/HCPCS: G0463 ==

== ENCOUNTER → 2018-06-24 | Outpatient (CLI) | payer OTHER, MEDICARE, BC | LOC: M PAIN 11:45 | DX: G89.4 Chronic pain syndrome (principal); B02.29 Other postherpetic nervous system involvement; I13.10 Hypertensive heart and chronic kidney disease without heart failure, with stage 1 through stage 4 chronic kidney disease, or unspecified chronic kidney disease; I48.0 Paroxysmal atrial fibrillation; F32.9 Major depressive disorder, single episode, unspecified; F41.1 Generalized anxiety disorder; E78.5 Hyperlipidemia, unspecified; D64.9 Anemia, unspecified; N18.3 Chronic kidney disease, stage 3 (moderate); E66.3 Overweight; Z68.30 Body mass index [BMI] 30.0-30.9, adult; Z79.891 Long term (current) use of opiate analgesic; Z85.59 Personal history of malignant neoplasm of other urinary tract organ; Z87.891 Personal history of nicotine dependence; Z79.01 Long term (current) use of anticoagulants; Z79.82 Long term (current) use of aspirin; Z79.899 Other long term (current) drug therapy | CPT/HCPCS: G0463 ==

== ENCOUNTER → 2018-07-06 | Outpatient (CLI) | payer OTHER, MEDICARE, BC ==
[2018-07-06 18:11] LABS: INR 3.35; PROTHROMBIN TIME 34.8 SECONDS (12.1-14.4)
== END ==
LOC: M WUC 14:41
DX: I35.9 Nonrheumatic aortic valve disorder, unspecified (principal)
CPT/HCPCS: 85610

== ENCOUNTER → 2018-07-16 | Outpatient (CLI) | payer OTHER, MEDICARE, BC ==
[2018-07-16 12:23] LABS: INR 3.47; PROTHROMBIN TIME 35.7 SECONDS (12.1-14.4)
== END ==
LOC: M WUC 10:18
DX: I35.9 Nonrheumatic aortic valve disorder, unspecified (principal)

== ENCOUNTER → 2018-07-22 | Outpatient (CLI) | payer OTHER, MEDICARE, BC | LOC: M PAIN 11:30 | DX: G89.4 Chronic pain syndrome (principal); B02.29 Other postherpetic nervous system involvement; I13.10 Hypertensive heart and chronic kidney disease without heart failure, with stage 1 through stage 4 chronic kidney disease, or unspecified chronic kidney disease; I48.0 Paroxysmal atrial fibrillation; F32.9 Major depressive disorder, single episode, unspecified; F41.1 Generalized anxiety disorder; E78.5 Hyperlipidemia, unspecified; D64.9 Anemia, unspecified; N18.3 Chronic kidney disease, stage 3 (moderate); E66.3 Overweight; Z79.891 Long term (current) use of opiate analgesic; Z85.50 Personal history of malignant neoplasm of unspecified urinary tract organ; Z68.30 Body mass index [BMI] 30.0-30.9, adult; Z79.899 Other long term (current) drug therapy; Z79.82 Long term (current) use of aspirin; Z79.01 Long term (current) use of anticoagulants | CPT/HCPCS: G0463 ==

== ENCOUNTER → 2018-09-24 | Outpatient (REF) | payer OTHER, MEDICARE, BC ==
[~2018-09-24] MED LIST changes: -DRIS50002 PO; +DRIS50003 PO; +KLOR20TA42 PO; -LOSA50TA20; -LOSA50TA20 PO; +LOSA50TA88; +LOSA50TA88 PO; -POTA20TA PO; +RANI75TA15 PO; -RANI75TA9 PO; +TIZA2CAP PO; -TIZA2CAP3 PO
[2018-09-24 11:37] LABS: BASO % 0.4 % (0.0-1.0); EOS # 0.2 10^3/uL (0.0-0.50); EOS % 2.8 % (0.0-3.0); HEMATOCRIT 37.3 % (42.0-52.0); HEMOGLOBIN 12.1 g/dl (13.5-17.5); LYMPH # 1.6 10^3/uL (1.5-4.5); LYMPH % 20.3 % (24.0-44.0); MEAN CORPUSCULAR HEMOGLOBIN 27.5 pg (27.0-33.0); MEAN CORPUSCULAR HGB CONC 32.4 g/dl (32.0-36.5); MEAN CORPUSCULAR VOLUME 84.8 fl (80.0-96.0); MONO % 13.1 % (0.0-5.0); NEUTROPHILS % 63.1 % (36.0-66.0); PLATELET COUNT, AUTOMATED 190 10^3/uL (150-450); WHITE BLOOD COUNT 7.9 10^3/uL (4.0-10.0)
[2018-09-24 12:13] LABS: ALBUMIN 3.7 GM/DL (3.2-5.2); ALT/SGPT 22 U/L (12-78); BILIRUBIN,TOTAL 0.6 MG/DL (0.2-1.0); BLOOD UREA NITROGEN 21 MG/DL (7-18); CALCIUM LEVEL 8.2 MG/DL (8.8-10.2); CARBON DIOXIDE LEVEL 29 MEQ/L (21-32); CHLORIDE LEVEL 103 MEQ/L (98-107); CREATININE FOR GFR 1.24 MG/DL (0.70-1.30); GLOMERULAR FILTRATION RATE > 60.0 (>42); GLUCOSE, FASTING 79 MG/DL (70-100); POTASSIUM SERUM 3.9 MEQ/L (3.5-5.1); SODIUM LEVEL 141 MEQ/L (136-145)
[2018-09-24 12:18] LABS: PTH INTACT 136.8 PG/ML (18.5-88.0); TOTAL 25(OH) VITAMIN D 62.1 NG/ML (30.0-100.0)
== END ==
LOC: M SFHCPLAZ 09:58
PROVIDERS: ATTEND Family Medicine
DX: I10 Essential (primary) hypertension (principal)

== ENCOUNTER → 2018-09-28 | Outpatient (REF) | payer OTHER | LOC: M SMT 12:50 | PROVIDERS: ATTEND Urology | DX: F32.9 Major depressive disorder, single episode, unspecified (principal); R82.8 Abnormal findings on cytological and histological examination of urine ==

== ENCOUNTER → 2018-12-21 | Outpatient (REF) | payer OTHER, MEDICARE, BC ==
[~2018-12-21] MED LIST changes: -/DULO30CA OR; -/OXYC15TA OR; -/WARF4TA OR; -ASPI1TAB PO; +ASPI81TA26 PO; +COUM1TAB14 OR; +CYMB1CAP5 OR; -DOCU10ELUD PO; +DOCU5LIQ PO; +OXYC1TAB32 OR
== END ==
LOC: M SMT 12:46
PROVIDERS: ATTEND Urology
DX: C67.9 Malignant neoplasm of bladder, unspecified (principal)

== ENCOUNTER → 2019-03-10 | Outpatient (REF) | payer OTHER, MEDICARE, BC ==
[2019-03-10 10:31] LABS: BASO % 0.3 % (0.0-1.0); EOS # 0.3 10^3/uL (0.0-0.50); EOS % 4.1 % (0.0-3.0); HEMATOCRIT 36.3 % (42.0-52.0); HEMOGLOBIN 12.1 g/dl (13.5-17.5); LYMPH # 1.3 10^3/uL (1.5-4.5); LYMPH % 21.9 % (24.0-44.0); MEAN CORPUSCULAR HGB CONC 33.3 g/dl (32.0-36.5); MEAN CORPUSCULAR VOLUME 87.1 fl (80.0-96.0); MONO # 0.7 10^3/uL (0.0-0.8); MONO % 10.9 % (0.0-5.0); NEUTROPHILS # 3.8 10^3/uL (1.8-7.7); NEUTROPHILS % 62.5 % (36.0-66.0); PLATELET COUNT, AUTOMATED 149 10^3/uL (150-450); RED BLOOD COUNT 4.17 10^6/uL (4.30-6.10); WHITE BLOOD COUNT 6.1 10^3/uL (4.0-10.0)
[2019-03-10 10:54] LABS: HEMOGLOBIN A1c 5.5 %
[2019-03-10 11:12] LABS: ALBUMIN 3.7 GM/DL (3.2-5.2); ALT/SGPT 23 U/L (12-78); BILIRUBIN,TOTAL 0.6 MG/DL (0.2-1.0); BLOOD UREA NITROGEN 21 MG/DL (7-18); CALCIUM LEVEL 8.1 MG/DL (8.8-10.2); CARBON DIOXIDE LEVEL 31 MEQ/L (21-32); CHLORIDE LEVEL 106 MEQ/L (98-107); CHOLESTEROL LEVEL 133 MG/DL (<200); FERRITIN 29 NG/ML (26-388); FREE T4 1.14 NG/DL (0.76-1.46); GLOMERULAR FILTRATION RATE > 60.0 (>42); GLUCOSE, FASTING 96 MG/DL (70-100); HDL CHOLESTEROL 38 MG/DL (>40); LDL CHOLESTEROL 72 MG/DL (<100); NON-HDL-C 95 MG/DL; POTASSIUM SERUM 4.1 MEQ/L (3.5-5.1); SODIUM LEVEL 142 MEQ/L (136-145); THYROID STIMULATING HORMONE 0.949 uIU/ML (0.358-3.740); TOTAL PROTEIN 7.1 GM/DL (6.4-8.2); TRIGLYCERIDES LEVEL 115 MG/DL (<150)
[2019-03-10 11:15] LABS: VITAMIN B12 LEVEL 466 PG/ML (247-911)
== END ==
LOC: M SFHCPLAZ 08:40
PROVIDERS: ATTEND Family Medicine
DX: Z12.5 Encounter for screening for malignant neoplasm of prostate (principal); E78.2 Mixed hyperlipidemia; N18.3 Chronic kidney disease, stage 3 (moderate); R73.01 Impaired fasting glucose
CPT/HCPCS: 36415; 80053; 80061; 82607; 82728; 83036; 83525; 84439; 84443; 85025; 85046; G0103

== ENCOUNTER → 2019-07-05 | Outpatient (REF) | payer OTHER, MEDICARE, BC | LOC: M SMT 19:05 | PROVIDERS: ATTEND Urology | DX: C67.9 Malignant neoplasm of bladder, unspecified (principal); R82.89 Other abnormal findings on cytological and histological examination of urine ==

== ENCOUNTER → 2019-08-04 | Outpatient (REF) | payer OTHER, MEDICARE, BC ==
[2019-08-04 12:03] LABS: BASO % 0.6 % (0.0-1.0); EOS # 0.2 10^3/uL (0.0-0.5); EOS % 3.5 % (0.0-3.0); HEMATOCRIT 37.5 % (42.0-52.0); LYMPH # 1.5 10^3/uL (1.5-5.0); LYMPH % 21.4 % (24.0-44.0); MEAN CORPUSCULAR HEMOGLOBIN 28.5 pg (27.0-33.0); MEAN CORPUSCULAR VOLUME 89.1 fl (80.0-96.0); MONO # 0.7 10^3/uL (0.0-0.8); MONO % 10.9 % (0.0-5.0); NEUTROPHILS # 4.3 10^3/uL (1.5-8.5); NEUTROPHILS % 63.2 % (36.0-66.0); PLATELET COUNT, AUTOMATED 165 10^3/uL (150-450); RED BLOOD COUNT 4.21 10^6/uL (4.30-6.10); WHITE BLOOD COUNT 6.8 10^3/uL (4.0-10.0)
[2019-08-04 12:19] LABS: ALBUMIN 3.7 GM/DL (3.2-5.2); BILIRUBIN,TOTAL 0.8 MG/DL (0.2-1.0); CALCIUM LEVEL 8.4 MG/DL (8.8-10.2); CHOLESTEROL RISK RATIO 4.027 (<5); CREATININE FOR GFR 1.41 MG/DL (0.70-1.30); GLOMERULAR FILTRATION RATE 52.3 (>42); POTASSIUM SERUM 4.1 MEQ/L (3.5-5.1); PTH INTACT 107.4 PG/ML (18.5-88.0); TOTAL PROTEIN 7.1 GM/DL (6.4-8.2)
[2019-08-04 12:27] LABS: HEMOGLOBIN A1c 5.6 %
[2019-08-05 10:07] LABS: ERYTHROPOIETIN 18.4 mIU/mL (2.6-18.5); INSULIN LEVEL 18.4 uIU/mL (2.6-24.9)
== END ==
LOC: M SFHCPLAZ 09:00
PROVIDERS: ATTEND Family Medicine
DX: N18.3 Chronic kidney disease, stage 3 (moderate) (principal); R73.01 Impaired fasting glucose; E78.2 Mixed hyperlipidemia; Z12.5 Encounter for screening for malignant neoplasm of prostate; E55.9 Vitamin D deficiency, unspecified

== ENCOUNTER → 2020-01-04 | Outpatient (REF) | payer OTHER, MEDICARE, BC ==
[2020-01-04 10:14] LABS: BASO # 0.1 10^3/uL (0.0-0.2); BASO % 0.7 % (0.0-1.0); EOS # 0.3 10^3/uL (0.0-0.5); EOS % 3.7 % (0.0-3.0); HEMATOCRIT 36.7 % (42.0-52.0); HEMOGLOBIN 12.2 g/dl (13.5-17.5); LYMPH # 1.6 10^3/uL (1.5-5.0); LYMPH % 21.7 % (24.0-44.0); MEAN CORPUSCULAR HEMOGLOBIN 28.8 pg (27.0-33.0); MEAN CORPUSCULAR HGB CONC 33.2 g/dl (32.0-36.5); MEAN CORPUSCULAR VOLUME 86.8 fl (80.0-96.0); MONO # 0.8 10^3/uL (0.0-0.8); MONO % 10.8 % (0.0-5.0); NEUTROPHILS # 4.6 10^3/uL (1.5-8.5); NEUTROPHILS % 62.8 % (36.0-66.0); PLATELET COUNT, AUTOMATED 171 10^3/uL (150-450); RED BLOOD COUNT 4.23 10^6/uL (4.30-6.10); WHITE BLOOD COUNT 7.3 10^3/uL (4.0-10.0)
[2020-01-04 10:18] LABS: APPEARANCE, URINE CLEAR (CLEAR); BACTERIA, URINE AUTO NEGATIVE (NEGATIVE); BILIRUBIN, URINE AUTO NEGATIVE (NEGATIVE); BLOOD, URINE BLOOD 2+ (NEGATIVE); COLOR, URINE YELLOW (YELLOW); GLUCOSE, URINE (UA) AUTO NEGATIVE (NEGATIVE); KETONE, URINE AUTO NEGATIVE (NEGATIVE); LEUKOCYTE ESTERASE, URINE AUTO NEGATIVE (NEGATIVE); NITRITE, URINE AUTO NEGATIVE (NEGATIVE); PROTEIN, URINE AUTO NEGATIVE (NEGATIVE); RBC, URINE AUTO 11 /HPF (0-3); SPECIFIC GRAVITY URINE AUTO 1.012 (1.002-1.035); SQUAMOUS EPITHELIAL CELL UR AU 0 /HPF (0-6); UROBILINOGEN, URINE AUTO 0.2 mg/dL (0.0-2.0); WBC, URINE AUTO 0 /HPF (0-3)
[2020-01-04 10:29] LABS: HEMOGLOBIN A1c 5.5 %
[2020-01-04 11:10] LABS: ALBUMIN 3.8 GM/DL (3.2-5.2); BILIRUBIN,TOTAL 0.6 MG/DL (0.2-1.0); C REACTIVE PROTEIN QUANTITATIV 0.3 MG/DL (0.00-0.30); CALCIUM LEVEL 8.2 MG/DL (8.8-10.2); CHOLESTEROL RISK RATIO 3.526 (<5); CREATININE FOR GFR 1.41 MG/DL (0.70-1.30); GLOMERULAR FILTRATION RATE 52.2 (>42); POTASSIUM SERUM 4.4 MEQ/L (3.5-5.1); TOTAL PROTEIN 7.4 GM/DL (6.4-8.2)
[2020-01-04 11:18] LABS: PTH INTACT 156.8 PG/ML (18.5-88.0)
[2020-01-04 11:19] LABS: MALB URINE SIEMENS 6.4 MG/L; MAU/CREAT RATIO 5.6 MCG/MG (0.0-30.0)
== END ==
LOC: M PLALAB 09:19
PROVIDERS: ATTEND Family Medicine
DX: E78.2 Mixed hyperlipidemia (principal); B02.29 Other postherpetic nervous system involvement; R73.01 Impaired fasting glucose; E55.9 Vitamin D deficiency, unspecified; D63.8 Anemia in other chronic diseases classified elsewhere

== ENCOUNTER → 2020-01-17 | Outpatient (REF) | payer OTHER, MEDICARE, BC | LOC: M SMT 16:44 | PROVIDERS: ATTEND Urology | DX: C67.9 Malignant neoplasm of bladder, unspecified (principal) ==

== ENCOUNTER 2020-03-16 13:07 | Emergency (ER) | payer BC, OTHER, MEDICARE ==
[~2020-03-16] VITALS: Ht 170.2 cm; Wt 88.3 kg
[~2020-03-16 13:07] MED LIST changes: -FLON1SPR; -GRAL600T PO; -HYDR1LIQ PO
[2020-03-16] MEDS ORDERED: HYDR1LIQ PO (13:45)
[2020-03-16] MEDS ORDERED: GRAL600T PO (13:45)
[2020-03-16] MEDS ORDERED: FLON1SPR (13:45)
[2020-03-16 14:07] LABS: BASO % 0.3 % (0.0-1.0); EOS # 0.1 10^3/uL (0.0-0.5); EOS % 0.7 % (0.0-3.0); HEMATOCRIT 35.9 % (42.0-52.0); HEMOGLOBIN 12.1 g/dl (13.5-17.5); LYMPH # 1.4 10^3/uL (1.5-5.0); LYMPH % 15.7 % (24.0-44.0); MEAN CORPUSCULAR HEMOGLOBIN 28.2 pg (27.0-33.0); MEAN CORPUSCULAR HGB CONC 33.7 g/dl (32.0-36.5); MEAN CORPUSCULAR VOLUME 83.7 fl (80.0-96.0); MONO # 0.9 10^3/uL (0.0-0.8); MONO % 9.7 % (0.0-5.0); NEUTROPHILS # 6.4 10^3/uL (1.5-8.5); NEUTROPHILS % 73.4 % (36.0-66.0); PLATELET COUNT, AUTOMATED 205 10^3/uL (150-450); RED BLOOD COUNT 4.29 10^6/uL (4.30-6.10); WHITE BLOOD COUNT 8.8 10^3/uL (4.0-10.0)
[2020-03-16] MEDS ORDERED: FAMOTIDINE IV BAG 20 MG in IV 1 EA IV ONE (14:30)
[2020-03-16] MEDS ORDERED: NS 1,000 ML IV SCH (14:30)
[2020-03-16 14:35] LABS: BILIRUBIN,DIRECT 0.2 MG/DL (0.0-0.2); BILIRUBIN,TOTAL 0.7 MG/DL (0.2-1.0); CALCIUM LEVEL 9.9 MG/DL (8.8-10.2); CREATININE FOR GFR 1.38 MG/DL (0.70-1.30); GLOMERULAR FILTRATION RATE 53.5 (>42); POTASSIUM SERUM 3.6 MEQ/L (3.5-5.1); TOTAL PROTEIN 7.5 GM/DL (6.4-8.2)
--- NOTE | 2020-03-16 14:52 | REP ---
Clinical: Abdominal pain and bloating. Technique: Axial noncontrast images from the lung bases to the pubic symphysis with coronal and sagittal re-formations. Comparison: 01/17/2017. Findings: Lung bases are clear. Liver demonstrates few subcentimeter hypodensities compatible with cysts and stable. Spleen, pancreas, bilateral adrenal glands and kidneys are normal. Cholelithiasis noted without acute cholecystitis. The enteric system is without obstruction or acute inflammatory process. Scattered colonic diverticula noted without acute diverticulitis. Normal terminal ileum and appendix are identified in the right lower quadrant. Pelvis demonstrates normal bladder and age appropriate prostate/seminal vesicles. No ascites. No free air. No adenopathy. Atherosclerotic changes to the aorta and vasculature without aneurysm. Musculoskeletal structures demonstrate age-related changes and right hip replacement. Impression: No acute abdominopelvic pathology appreciated. Cholelithiasis Stable subcentimeter hepatic cysts. Electronically Signed by Wilson Amador MD 03/16/2020 02:43 P
[2020-03-16] MEDS ORDERED: GI COCKTAIL 50ML BTL(HYOSCYAMINE/MAALOX/LIDOCAINE VISCOUS)(1:3:1) PO ONE (15:15)
[2020-03-16 15:29] VITALS: BP 137/64
== END 2020-03-16 15:32 | disposition home or self-care (01) ==
LOC: M ED 13:07
DX: K29.70 Gastritis, unspecified, without bleeding (principal); I10 Essential (primary) hypertension; B02.9 Zoster without complications; Z79.899 Other long term (current) drug therapy; Z79.82 Long term (current) use of aspirin; Z79.01 Long term (current) use of anticoagulants; Z88.8 Allergy status to other drugs, medicaments and biological substances

== ENCOUNTER → 2020-03-16 | Outpatient (REF) | payer OTHER, MEDICARE, BC ==
[~2020-03-16] MED LIST changes: -COUM1TAB14 PO; +COUM4TAB8 PO; -COUM6TAB PO; +COUM6TAB10 PO; +FLON1SPR; +GRAL600T PO; +HYDR1LIQ PO
[2020-03-16 13:30] LABS: BASO % 0.3 % (0.0-1.0); EOS # 0.1 10^3/uL (0.0-0.5); EOS % 0.6 % (0.0-3.0); HEMATOCRIT 36.4 % (42.0-52.0); HEMOGLOBIN 12.2 g/dl (13.5-17.5); LYMPH # 1.4 10^3/uL (1.5-5.0); LYMPH % 15.8 % (24.0-44.0); MEAN CORPUSCULAR HEMOGLOBIN 28.5 pg (27.0-33.0); MEAN CORPUSCULAR HGB CONC 33.5 g/dl (32.0-36.5); MONO # 0.8 10^3/uL (0.0-0.8); MONO % 8.4 % (0.0-5.0); NEUTROPHILS # 6.8 10^3/uL (1.5-8.5); NEUTROPHILS % 74.6 % (36.0-66.0); PLATELET COUNT, AUTOMATED 197 10^3/uL (150-450); RED BLOOD COUNT 4.28 10^6/uL (4.30-6.10); WHITE BLOOD COUNT 9.1 10^3/uL (4.0-10.0)
[2020-03-16 13:58] LABS: BILIRUBIN,TOTAL 0.7 MG/DL (0.2-1.0); CALCIUM LEVEL 9.8 MG/DL (8.8-10.2); CREATININE FOR GFR 1.39 MG/DL (0.70-1.30); MAGNESIUM LEVEL 1.9 MG/DL (1.8-2.4); POTASSIUM SERUM 4.3 MEQ/L (3.5-5.1); TOTAL PROTEIN 7.2 GM/DL (6.4-8.2)
[2020-03-16 14:07] LABS: PTH INTACT 33.7 PG/ML (18.5-88.0)
[2020-03-17 12:07] LABS: ERYTHROPOIETIN 14.7 mIU/mL (2.6-18.5); INSULIN LEVEL 63.5 uIU/mL (2.6-24.9)
== END ==
LOC: M PLALAB 12:39
PROVIDERS: ATTEND Family Medicine
DX: E55.9 Vitamin D deficiency, unspecified (principal); R73.01 Impaired fasting glucose; D63.8 Anemia in other chronic diseases classified elsewhere; R19.7 Diarrhea, unspecified

== ENCOUNTER → 2020-06-06 | Outpatient (CLI) | payer BC, OTHER, MEDICARE ==
[~2020-06-06] MED LIST changes: +FLON1SPR; +GRAL600T PO; +HYDR1LIQ PO
[2020-06-06 13:58] LABS: HEMATOCRIT 36.4 % (42.0-52.0); HEMOGLOBIN 11.7 g/dl (13.5-17.5); MEAN CORPUSCULAR HEMOGLOBIN 27.3 pg (27.0-33.0); MEAN CORPUSCULAR HGB CONC 32.1 g/dl (32.0-36.5); MEAN CORPUSCULAR VOLUME 84.8 fl (80.0-96.0); PLATELET COUNT, AUTOMATED 181 10^3/uL (150-450); RED BLOOD COUNT 4.29 10^6/uL (4.30-6.10); WHITE BLOOD COUNT 7.6 10^3/uL (4.0-10.0)
[2020-06-06 14:09] LABS: ALBUMIN 3.7 GM/DL (3.2-5.2); BILIRUBIN,TOTAL 0.6 MG/DL (0.2-1.0); CALCIUM LEVEL 8.4 MG/DL (8.8-10.2); CHOLESTEROL RISK RATIO 3.621 (<5); CREATININE FOR GFR 1.43 MG/DL (0.70-1.30); GLOMERULAR FILTRATION RATE 51.3 (>42); POTASSIUM SERUM 3.7 MEQ/L (3.5-5.1)
[2020-06-06 18:09] LABS: HEMOGLOBIN A1c 5.3 %
== END ==
LOC: M PLALAB 11:26
PROVIDERS: ATTEND Family Medicine
DX: D50.9 Iron deficiency anemia, unspecified (principal); Z12.5 Encounter for screening for malignant neoplasm of prostate; N18.3 Chronic kidney disease, stage 3 (moderate)
CPT/HCPCS: 36415; 80053; 80061; 82306; 83036; 83525; 83970; 85027; 85046; G0103

== ENCOUNTER → 2021-01-23 | Outpatient (REF) | payer OTHER, MEDICARE, BC ==
[~2021-01-23] MED LIST changes: +HYDR-3490 PO; -HYDR25TAB PO; +SIME80CH5 PO; -SIME80TA PO
== END ==
LOC: M SMT 16:45
PROVIDERS: ATTEND Urology
DX: Z85.51 Personal history of malignant neoplasm of bladder (principal)

== ENCOUNTER → 2021-06-06 | Outpatient (REF) | payer OTHER, MEDICARE, BC ==
[~2021-06-06] MED LIST changes: -KLOR20TA42 PO; +POTA-141 PO
[2021-06-06 12:35] LABS: BASO # 0.1 10^3/uL (0.0-0.2); BASO % 0.7 % (0.0-1.0); EOS # 0.3 10^3/uL (0.0-0.5); EOS % 4.4 % (0.0-3.0); HEMATOCRIT 33.5 % (42.0-52.0); HEMOGLOBIN 10.6 g/dl (13.5-17.5); LYMPH # 1.5 10^3/uL (1.5-5.0); LYMPH % 20.2 % (24.0-44.0); MEAN CORPUSCULAR HEMOGLOBIN 24.7 pg (27.0-33.0); MEAN CORPUSCULAR HGB CONC 31.6 g/dl (32.0-36.5); MEAN CORPUSCULAR VOLUME 78.1 fl (80.0-96.0); MONO # 0.8 10^3/uL (0.0-0.8); MONO % 11.3 % (2.0-8.0); NEUTROPHILS # 4.6 10^3/uL (1.5-8.5); NEUTROPHILS % 63.1 % (36.0-66.0); PLATELET COUNT, AUTOMATED 193 10^3/uL (150-450); RED BLOOD COUNT 4.29 10^6/uL (4.30-6.10); WHITE BLOOD COUNT 7.3 10^3/uL (4.0-10.0)
[2021-06-06 12:45] LABS: INR 3.26; PROTHROMBIN TIME 33.5 SECONDS (12.7-14.5)
[2021-06-06 12:58] LABS: HEMOGLOBIN A1c 5.7 %
[2021-06-06 14:43] LABS: CREATININE,RANDOM URINE 79.6 MG/DL; TOTAL PROTEIN,RANDOM URINE 8.4 MG/DL (0.0-12.0)
[2021-06-06 15:11] LABS: ALBUMIN 3.5 GM/DL (3.2-5.2); ALT/SGPT 20 U/L (12-78); BILIRUBIN,TOTAL 0.5 MG/DL (0.2-1.0); BLOOD UREA NITROGEN 17 MG/DL (7-18); CALCIUM LEVEL 8.1 MG/DL (8.8-10.2); CARBON DIOXIDE LEVEL 30 MEQ/L (21-32); CHLORIDE LEVEL 104 MEQ/L (98-107); CREATININE FOR GFR 1.35 MG/DL (0.70-1.30); FERRITIN 13 NG/ML (26-388); GLOMERULAR FILTRATION RATE 54.7 (>42); GLUCOSE, FASTING 94 MG/DL (70-100); IRON (FE) 36 UG/DL (65-175); PERCENT SATURATION 9.9 % (19.7-50.0); POTASSIUM SERUM 3.9 MEQ/L (3.5-5.1); PTH INTACT 133.7 PG/ML (18.5-88.0); SODIUM LEVEL 141 MEQ/L (136-145); TOTAL IRON BINDING CAPACITY 362 UG/DL (250-450); TOTAL PROTEIN 6.6 GM/DL (6.4-8.2); VITAMIN B12 LEVEL 523 PG/ML (247-911)
== END ==
LOC: M SFHCPLAZ 08:26 → M SFHCADAM 08:39
PROVIDERS: ATTEND Family Medicine
DX: E55.9 Vitamin D deficiency, unspecified (principal); R73.01 Impaired fasting glucose; Z95.2 Presence of prosthetic heart valve; D63.8 Anemia in other chronic diseases classified elsewhere; N18.30 Chronic kidney disease, stage 3 unspecified; K21.9 Gastro-esophageal reflux disease without esophagitis

== ENCOUNTER → 2021-09-21 | Outpatient (REF) | payer BC, OTHER, MEDICARE ==
[~2021-09-21] MED LIST changes: -LEVO500T3; +LEVO500T4; +LOSA50TA28; +LOSA50TA28 PO; -LOSA50TA88; -LOSA50TA88 PO
== END ==
LOC: M SFHCPLAZ 19:48
PROVIDERS: ATTEND Physician Assistant
DX: R19.7 Diarrhea, unspecified (principal)

== ENCOUNTER → 2021-09-24 | Outpatient (CLI) | payer MEDICARE, BC, OTHER | LOC: M RAD 11:51 | PROVIDERS: ATTEND Physician Assistant | DX: R10.84 Generalized abdominal pain (principal); R14.0 Abdominal distension (gaseous) ==

== ENCOUNTER 2021-10-01 13:06 | Outpatient (CLI) | payer BC, OTHER, MEDICARE ==
[~2021-10-01] VITALS: Ht 170.2 cm; Wt 179.8 kg
[~2021-10-01 13:06] MED LIST changes: +ALBUTEROL SULFATE 2.5 MG/0.5 ML INH NEB SOLN INH PRN; +EPINEPHrine INJ 1 MG/ML 1ML AMP IM PRN; +FERRIC CARBOXYMALTOSE INJ 750 MG, VIAL MATE ADAPTER 1 EACH in NS 250 ML IV ONE; +NS 1,000 ML IV SCH; +diphenhydrAMINE 50MG/ML VIAL (J1200) IV PRN; +methylPREDNISolone 125MG 2ML VIAL IV PRN
[2021-10-01 13:20] VITALS: BP 153/58
[2021-10-01 14:00] VITALS: BP 127/60
[2021-10-01 15:03] VITALS: BP 124/60
== END 2021-10-01 15:20 ==
LOC: M INFU 13:06
PROVIDERS: ATTEND Family Medicine
DX: D50.9 Iron deficiency anemia, unspecified (principal); Z88.8 Allergy status to other drugs, medicaments and biological substances
CPT/HCPCS: 96365; 96366; J1439

== ENCOUNTER → 2021-10-05 | Outpatient (CLI) | payer BC, OTHER, MEDICARE ==
[~2021-10-05] MED LIST changes: -ALBUTEROL SULFATE 2.5 MG/0.5 ML INH NEB SOLN INH PRN; -EPINEPHrine INJ 1 MG/ML 1ML AMP IM PRN; -FERRIC CARBOXYMALTOSE INJ 750 MG, VIAL MATE ADAPTER 1 EACH in NS 250 ML IV ONE; -NS 1,000 ML IV SCH; -diphenhydrAMINE 50MG/ML VIAL (J1200) IV PRN; -methylPREDNISolone 125MG 2ML VIAL IV PRN
== END ==
LOC: M RAD 07:36
PROVIDERS: ATTEND Family Medicine
DX: N28.1 Cyst of kidney, acquired (principal); I10 Essential (primary) hypertension

== ENCOUNTER → 2021-10-15 | Outpatient (CLI) | payer BC, OTHER, MEDICARE ==
[~2021-10-15] MED LIST changes: +E-Z-GAS II EFFERVESCENT PACKET (SODIUM BICARB./CITRIC ACID/SIMETHICONE) As Ordered ONE; +E-Z-HD 98% w/w 340GM SUSP BTL As Ordered ONE; +E-Z-PAQUE 96% w/w SUSP 176GM BTL As Ordered ONE
== END ==
LOC: M RAD 08:06
PROVIDERS: ATTEND Family Medicine
DX: K22.89 Other specified disease of esophagus (principal); K21.9 Gastro-esophageal reflux disease without esophagitis

== ENCOUNTER → 2021-10-18 | Outpatient (CLI) | payer BC, OTHER, MEDICARE ==
[~2021-10-18] MED LIST changes: -E-Z-GAS II EFFERVESCENT PACKET (SODIUM BICARB./CITRIC ACID/SIMETHICONE) As Ordered ONE; -E-Z-HD 98% w/w 340GM SUSP BTL As Ordered ONE; -E-Z-PAQUE 96% w/w SUSP 176GM BTL As Ordered ONE
[2021-10-18 17:13] LABS: BASO % 0.5 % (0.0-1.0); EOS # 0.3 10^3/uL (0.0-0.5); EOS % 3.7 % (0.0-3.0); HEMATOCRIT 38.1 % (42.0-52.0); HEMOGLOBIN 12.5 g/dl (13.5-17.5); LYMPH % 22.9 % (24.0-44.0); MEAN CORPUSCULAR HEMOGLOBIN 27.9 pg (27.0-33.0); MEAN CORPUSCULAR HGB CONC 32.8 g/dl (32.0-36.5); MONO % 11.4 % (2.0-8.0); NEUTROPHILS # 5.3 10^3/uL (1.5-8.5); NEUTROPHILS % 61.2 % (36.0-66.0); PLATELET COUNT, AUTOMATED 159 10^3/uL (150-450); RED BLOOD COUNT 4.48 10^6/uL (4.30-6.10); WHITE BLOOD COUNT 8.7 10^3/uL (4.0-10.0)
[2021-10-18 17:30] LABS: ALBUMIN 3.8 GM/DL (3.2-5.2); BILIRUBIN,TOTAL 0.6 MG/DL (0.2-1.0); CALCIUM LEVEL 8.3 MG/DL (8.8-10.2); CREATININE FOR GFR 1.27 MG/DL (0.70-1.30); GLOMERULAR FILTRATION RATE 58.5 (>42); POTASSIUM SERUM 4.2 MEQ/L (3.5-5.1)
[2021-10-19 11:06] LABS: PTH INTACT 172.5 PG/ML (18.5-88.0)
[2021-10-19 21:45] LABS: MAGNESIUM LEVEL 1.9 MG/DL (1.7-2.2)
== END ==
LOC: M PLALAB 14:44
PROVIDERS: ATTEND Family Medicine
DX: I10 Essential (primary) hypertension (principal)

== ENCOUNTER → 2021-12-25 | Outpatient (REF) | payer MEDICARE, BC, OTHER | LOC: M SFHCPLAZ 13:00 | PROVIDERS: ATTEND Physician Assistant | DX: Z86.19 Personal history of other infectious and parasitic diseases (principal) ==

== ENCOUNTER → 2022-02-18 | Outpatient (REF) | payer MEDICARE, OTHER, BC | LOC: M SMT 17:06 | PROVIDERS: ATTEND Urology | DX: C67.9 Malignant neoplasm of bladder, unspecified (principal) ==

== ENCOUNTER → 2022-04-01 | Outpatient (CLI) | payer BC, OTHER, MEDICARE ==
[~2022-04-01] MED LIST changes: +LEVO1TAB39; +LEVO1TAB40; -LEVO500T4; -LEVO750T13
[2022-04-01 13:16] LABS: BASO # 0.1 10^3/uL (0.0-0.2); BASO % 0.9 % (0.0-1.0); EOS # 0.2 10^3/uL (0.0-0.5); EOS % 3.9 % (0.0-3.0); HEMATOCRIT 37.8 % (42.0-52.0); HEMOGLOBIN 12.3 g/dl (13.5-17.5); LYMPH # 1.4 10^3/uL (1.5-5.0); MEAN CORPUSCULAR HGB CONC 32.5 g/dl (32.0-36.5); MEAN CORPUSCULAR VOLUME 89.2 fl (80.0-96.0); MONO # 0.7 10^3/uL (0.0-0.8); MONO % 11.3 % (2.0-8.0); NEUTROPHILS # 3.5 10^3/uL (1.5-8.5); NEUTROPHILS % 59.6 % (36.0-66.0); PLATELET COUNT, AUTOMATED 151 10^3/uL (150-450); RED BLOOD COUNT 4.24 10^6/uL (4.30-6.10); WHITE BLOOD COUNT 5.8 10^3/uL (4.0-10.0)
[2022-04-01 14:27] LABS: ALBUMIN 3.8 GM/DL (3.2-5.2); CALCIUM LEVEL 8.3 MG/DL (8.8-10.2); CHOLESTEROL RISK RATIO 2.951 (<5); CREATININE FOR GFR 1.29 MG/DL (0.70-1.30); GLOMERULAR FILTRATION RATE 57.5 (>42); PHOSPHORUS LEVEL 3.2 MG/DL (2.5-4.9)
[2022-04-01 14:48] LABS: PTH INTACT 147.5 PG/ML (18.5-88.0)
[2022-04-01 15:15] LABS: HEMOGLOBIN A1c 5.1 %
[2022-04-02 08:09] LABS: APOLIPOPROTEIN B/A-1 RATIO 0.7 ratio (0.0-0.7); INSULIN LEVEL 10.8 uIU/mL (2.6-24.9)
== END ==
LOC: M PLALAB 09:13
PROVIDERS: ATTEND Family Medicine
DX: R73.01 Impaired fasting glucose (principal); E55.9 Vitamin D deficiency, unspecified; D50.9 Iron deficiency anemia, unspecified; F41.1 Generalized anxiety disorder; E78.2 Mixed hyperlipidemia; Z79.899 Other long term (current) drug therapy

== ENCOUNTER → 2022-05-01 | Outpatient (REF) | payer OTHER, MEDICARE, BC | LOC: M SFHCPLAZ 13:17 | PROVIDERS: ATTEND Physician Assistant | DX: R09.89 Other specified symptoms and signs involving the circulatory and respiratory systems (principal); Z20.822 Contact with and (suspected) exposure to COVID-19 ==

== ENCOUNTER → 2022-08-07 | Outpatient (CLI) | payer OTHER, MEDICARE, BC ==
[2022-08-07 10:19] LABS: BASO % 0.5 % (0.0-1.0); EOS # 0.2 10^3/uL (0.0-0.5); EOS % 3.1 % (0.0-3.0); HEMATOCRIT 36.9 % (42.0-52.0); HEMOGLOBIN 12.2 g/dl (13.5-17.5); LYMPH # 1.4 10^3/uL (1.5-5.0); LYMPH % 22.4 % (24.0-44.0); MEAN CORPUSCULAR HEMOGLOBIN 29.4 pg (27.0-33.0); MEAN CORPUSCULAR HGB CONC 33.1 g/dl (32.0-36.5); MEAN CORPUSCULAR VOLUME 88.9 fl (80.0-96.0); MONO # 0.7 10^3/uL (0.0-0.8); MONO % 10.2 % (2.0-8.0); NEUTROPHILS % 63.5 % (36.0-66.0); PLATELET COUNT, AUTOMATED 177 10^3/uL (150-450); RED BLOOD COUNT 4.15 10^6/uL (4.30-6.10); WHITE BLOOD COUNT 6.4 10^3/uL (4.0-10.0)
[2022-08-07 11:06] LABS: ALT/SGPT 18 U/L (7.0-40); BILIRUBIN,TOTAL 1.1 MG/DL (0.3-1.2); BLOOD UREA NITROGEN 21 MG/DL (9-23); CALCIUM LEVEL 8.5 MG/DL (8.3-10.6); CARBON DIOXIDE LEVEL 31 MMOL/L (20-31); CHLORIDE LEVEL 103 MMOL/L (98-107); CREATININE FOR GFR 1.22 MG/DL (0.70-1.30); FERRITIN 106.9 NG/ML (10.5-307.3); GLOMERULAR FILTRATION RATE > 60.0 (>42); GLUCOSE, FASTING 104 MG/DL (74-106); POTASSIUM SERUM 3.8 MMOL/L (3.5-5.1); SODIUM LEVEL 140 MMOL/L (136-145); TOTAL PROTEIN 6.8 G/DL (5.7-8.2); TOTAL PROTEIN 6.8 GM/DL (6.4-8.2)
== END ==
LOC: M PLALAB 08:07
PROVIDERS: ATTEND Family Medicine
DX: Z12.5 Encounter for screening for malignant neoplasm of prostate (principal); N18.30 Chronic kidney disease, stage 3 unspecified; D63.8 Anemia in other chronic diseases classified elsewhere; I12.9 Hypertensive chronic kidney disease with stage 1 through stage 4 chronic kidney disease, or unspecified chronic kidney disease
CPT/HCPCS: 36415; 80053; 82728; 83520; 83880; 84165; 85025; 86335; G0103

== ENCOUNTER → 2022-12-31 | Outpatient (CLI) | payer BC, OTHER, MEDICARE ==
[~2022-12-31] MED LIST changes: -VYTO10TA29 PO; +[UNRECOGNIZED DRUG - CODE] PO
[2022-12-31 11:04] LABS: BASO % 0.6 % (0.0-1.0); EOS # 0.2 10^3/uL (0.0-0.5); EOS % 3.6 % (0.0-3.0); HEMOGLOBIN 11.8 g/dl (13.5-17.5); LYMPH # 1.6 10^3/uL (1.5-5.0); LYMPH % 23.5 % (24.0-44.0); MEAN CORPUSCULAR HEMOGLOBIN 29.1 pg (27.0-33.0); MEAN CORPUSCULAR HGB CONC 32.8 g/dl (32.0-36.5); MEAN CORPUSCULAR VOLUME 88.9 fl (80.0-96.0); MONO # 0.8 10^3/uL (0.0-0.8); MONO % 11.3 % (2.0-8.0); NEUTROPHILS % 60.7 % (36.0-66.0); PLATELET COUNT, AUTOMATED 179 10^3/uL (150-450); RED BLOOD COUNT 4.05 10^6/uL (4.30-6.10); WHITE BLOOD COUNT 6.6 10^3/uL (4.0-10.0)
[2022-12-31 11:15] LABS: ALBUMIN 3.9 G/DL (3.2-5.2); BILIRUBIN,TOTAL 0.7 MG/DL (0.3-1.2); CALCIUM LEVEL 7.8 MG/DL (8.3-10.6); CREATININE FOR GFR 1.32 MG/DL (0.70-1.30); FERRITIN 35.9 NG/ML (10.5-307.3); FREE T4 1.13 NG/DL (0.89-1.76); GLOMERULAR FILTRATION RATE 55.8 (>42); POTASSIUM SERUM 4.4 MMOL/L (3.5-5.1); PTH INTACT 205.2 PG/ML (18.5-88.0); THYROID STIMULATING HORMONE 0.916 uIU/ML (0.55-4.78); TOTAL 25(OH) VITAMIN D 33.2 NG/ML (20.0-100.0); TOTAL PROTEIN 6.7 G/DL (5.7-8.2)
[2023-01-02 02:07] LABS: D001-IgE D pteronyssinus <0.10 kU/L (Class 0); E001-IgE Cat Epith/Dander < 0.10 kU/L (Class 0); E005-IgE Dog Dander < 0.10 kU/L (Class 0); G002-IgE Bermuda Grass < 0.10 kU/L (Class 0); M001-IgE Penicillium chrysogen < 0.10 kU/L (Class 0); M002 IgE Cladosporium herbaru < 0.10 kU/L (Class 0); M003 IgE Aspergillus fumigatu < 0.10 kU/L (Class 0); M006-IgE Alternaria alternata < 0.10 kU/L (Class 0); T001-IgE Maple/Box Elder < 0.10 kU/L (Class 0); T003-IgE Common Silver Birch < 0.10 kU/L (Class 0); T006-IgE Cedar, Mountain < 0.10 kU/L (Class 0); T007-IgE Oak, White < 0.10 kU/L (Class 0); T008-IgE Elm, American < 0.10 kU/L (Class 0); T015-IgE Ash, White < 0.10 kU/L (Class 0); T070-IgE White Mulberry < 0.10 kU/L (Class 0); W001-IgE Ragweed, Short < 0.10 kU/L (Class 0); W018-IgE Sheep Sorrel < 0.10 kU/L (Class 0)
== END ==
LOC: M PLALAB 08:43
PROVIDERS: ATTEND Family Medicine
DX: I10 Essential (primary) hypertension (principal)

== ENCOUNTER → 2023-02-28 | Outpatient (CLI) | payer BC, OTHER, MEDICARE ==
[2023-02-28 14:06] LABS: CALCIUM LEVEL 7.5 MG/DL (8.3-10.6); CREATININE FOR GFR 1.38 MG/DL (0.70-1.30); GLOMERULAR FILTRATION RATE 53.1 (>42); POTASSIUM SERUM 3.8 MMOL/L (3.5-5.1)
== END ==
LOC: M PLALAB 10:07
PROVIDERS: ATTEND Urology
DX: C67.9 Malignant neoplasm of bladder, unspecified (principal)

== ENCOUNTER → 2023-03-05 | Outpatient (CLI) | payer BC, OTHER, MEDICARE ==
[~2023-03-05] MED LIST changes: +ISOVUE-370 76% 100ML VIAL As Ordered ONE
== END ==
LOC: M RAD 15:08
PROVIDERS: ATTEND Urology
DX: C67.9 Malignant neoplasm of bladder, unspecified (principal)

== ENCOUNTER → 2023-06-06 | Outpatient (REF) | payer OTHER, MEDICARE, BC ==
[~2023-06-06] MED LIST changes: -ISOVUE-370 76% 100ML VIAL As Ordered ONE
== END ==
LOC: M SFHCPLAZ 15:18
PROVIDERS: ATTEND Family Medicine
DX: Z53.9 Procedure and treatment not carried out, unspecified reason (principal)

== ENCOUNTER → 2023-06-06 | Outpatient (CLI) | payer BC, OTHER, MEDICARE ==
[2023-06-06 16:26] LABS: BASO # 0.1 10^3/uL (0.0-0.2); BASO % 0.7 % (0.0-1.0); EOS # 0.3 10^3/uL (0.0-0.5); EOS % 3.7 % (0.0-3.0); HEMATOCRIT 36.9 % (42.0-52.0); HEMOGLOBIN 12.1 g/dl (13.5-17.5); LYMPH % 23.4 % (24.0-44.0); MEAN CORPUSCULAR HEMOGLOBIN 28.8 pg (27.0-33.0); MEAN CORPUSCULAR HGB CONC 32.8 g/dl (32.0-36.5); MEAN CORPUSCULAR VOLUME 87.9 fl (80.0-96.0); MONO # 0.9 10^3/uL (0.0-0.8); MONO % 10.1 % (2.0-8.0); NEUTROPHILS # 5.4 10^3/uL (1.5-8.5); NEUTROPHILS % 61.9 % (36.0-66.0); PLATELET COUNT, AUTOMATED 180 10^3/uL (150-450); WHITE BLOOD COUNT 8.7 10^3/uL (4.0-10.0)
[2023-06-06 16:42] LABS: TOTAL 25(OH) VITAMIN D 32.6 NG/ML (20.0-100.0)
[2023-06-06 16:44] LABS: FERRITIN 32.2 NG/ML (10.5-307.3)
[2023-06-06 16:45] LABS: BILIRUBIN,TOTAL 0.9 MG/DL (0.3-1.2); CALCIUM LEVEL 8.5 MG/DL (8.3-10.6); CHOLESTEROL RISK RATIO 3.25 (<5); CREATININE FOR GFR 1.29 MG/DL (0.70-1.30); GLOMERULAR FILTRATION RATE 57.3 (>42); HDL CHOLESTEROL 38.1 MG/DL (>40); LDL CHOLESTEROL 68.9 MG/DL (<100); NON-HDL-C 85.9 MG/DL; PHOSPHORUS LEVEL 3.3 MG/DL (2.4-5.1); TOTAL PROTEIN 6.9 G/DL (5.7-8.2)
[2023-06-06 19:44] LABS: PTH INTACT 178.7 PG/ML (18.5-88.0)
== END ==
LOC: M PLALAB 14:43
PROVIDERS: ATTEND Family Medicine
DX: E55.9 Vitamin D deficiency, unspecified (principal); D50.9 Iron deficiency anemia, unspecified; Z12.5 Encounter for screening for malignant neoplasm of prostate; E78.2 Mixed hyperlipidemia
CPT/HCPCS: 36415; 80053; 80061; 80069; 82306; 82728; 83520; 83970; 85025; 86364; 86677; G0103

== ENCOUNTER → 2023-09-30 | Outpatient (REF) | payer BC, OTHER, MEDICARE | LOC: M SMT 15:36 | PROVIDERS: ATTEND Urology | DX: C67.9 Malignant neoplasm of bladder, unspecified (principal) ==

== ENCOUNTER → 2023-10-14 | Outpatient (CLI) | payer BC, OTHER, MEDICARE ==
[2023-10-14 13:34] LABS: BASO % 0.6 % (0.0-1.0); EOS # 0.2 10^3/uL (0.0-0.5); EOS % 3.7 % (0.0-3.0); HEMOGLOBIN 11.8 g/dl (13.5-17.5); LYMPH # 1.9 10^3/uL (1.5-5.0); LYMPH % 28.4 % (24.0-44.0); MEAN CORPUSCULAR HEMOGLOBIN 28.8 pg (27.0-33.0); MEAN CORPUSCULAR HGB CONC 32.8 g/dl (32.0-36.5); MEAN CORPUSCULAR VOLUME 87.8 fl (80.0-96.0); MONO # 0.7 10^3/uL (0.0-0.8); MONO % 10.6 % (2.0-8.0); NEUTROPHILS # 3.7 10^3/uL (1.5-8.5); NEUTROPHILS % 56.5 % (36.0-66.0); PLATELET COUNT, AUTOMATED 170 10^3/uL (150-450); WHITE BLOOD COUNT 6.5 10^3/uL (4.0-10.0)
[2023-10-14 13:42] LABS: ALBUMIN 3.6 G/DL (3.2-5.2); BILIRUBIN,TOTAL 0.6 MG/DL (0.3-1.2); CALCIUM LEVEL 8.2 MG/DL (8.3-10.6); CHOLESTEROL RISK RATIO 3.59 (<5); CREATININE FOR GFR 1.33 MG/DL (0.70-1.30); GLOMERULAR FILTRATION RATE 55.2 (>42); HDL CHOLESTEROL 34.8 MG/DL (>40); LDL CHOLESTEROL 75.2 MG/DL (<100); MAGNESIUM LEVEL 2.1 MG/DL (1.8-2.4); NON-HDL-C 90.2 MG/DL; POTASSIUM SERUM 4.3 MMOL/L (3.5-5.1); PTH INTACT 180.9 PG/ML (18.5-88.0); TOTAL PROTEIN 6.7 G/DL (5.7-8.2)
[2023-10-14 13:43] LABS: TOTAL 25(OH) VITAMIN D 30.6 NG/ML (20.0-100.0)
[2023-10-14 13:50] LABS: HEMOGLOBIN A1c 5.1 % (4.0-6.0)
== END ==
LOC: M PLALAB 09:19
PROVIDERS: ATTEND Family Medicine
DX: I10 Essential (primary) hypertension (principal); R73.01 Impaired fasting glucose; D63.8 Anemia in other chronic diseases classified elsewhere

== ENCOUNTER 2023-10-23 15:04 | Outpatient (CLI) | payer BC, OTHER, MEDICARE ==
[~2023-10-23] VITALS: Ht 170.2 cm; Wt 79.1 kg
[~2023-10-23 15:04] MED LIST changes: +ALBUTEROL SULFATE 2.5MG/0.5ML INH NEB SOLN INH PRN; +EPINEPHrine INJ 1 MG/ML 1ML AMP IM PRN; +diphenhydrAMINE 50MG/ML VIAL IV PRN; +methylPREDNISolone 125MG 2ML VIAL IV PRN
[2023-10-23 15:17] VITALS: BP 172/69; O2SAT 96
[2023-10-23] MEDS: NS 1,000 ML IV SCH (15:30)
[2023-10-23] MEDS: FERRIC CARBOXYMALTOSE INJ 750 MG in NS 250 ML (>50kg) IV ONE (15:38)
[2023-10-23 16:27] VITALS: BP 141/65; O2SAT 98
== END 2023-10-23 16:30 | disposition home or self-care (01) ==
LOC: M INFU 15:04
PROVIDERS: ATTEND Family Medicine
DX: D50.9 Iron deficiency anemia, unspecified (principal); Z88.8 Allergy status to other drugs, medicaments and biological substances
CPT/HCPCS: 96365; J1439

== ENCOUNTER → 2023-12-09 | Outpatient (CLI) | payer BC, MEDICARE ==
[~2023-12-09] MED LIST changes: -ALBUTEROL SULFATE 2.5MG/0.5ML INH NEB SOLN INH PRN; -EPINEPHrine INJ 1 MG/ML 1ML AMP IM PRN; -diphenhydrAMINE 50MG/ML VIAL IV PRN; -methylPREDNISolone 125MG 2ML VIAL IV PRN
== END ==
LOC: M PLAIMG 10:38
PROVIDERS: ATTEND Physician Assistant
DX: I35.1 Nonrheumatic aortic (valve) insufficiency (principal); Z95.2 Presence of prosthetic heart valve; I71.20 Thoracic aortic aneurysm, without rupture, unspecified

== ENCOUNTER → 2024-02-19 | Outpatient (CLI) | payer BC, MEDICARE ==
[2024-02-19 15:15] LABS: BASO % 0.6 % (0.0-1.0); EOS # 0.2 10^3/uL (0.0-0.5); EOS % 3.5 % (0.0-3.0); HEMATOCRIT 37.7 % (42.0-52.0); HEMOGLOBIN 12.4 g/dl (13.5-17.5); LYMPH # 1.4 10^3/uL (1.5-5.0); LYMPH % 20.9 % (24.0-44.0); MEAN CORPUSCULAR HEMOGLOBIN 30.1 pg (27.0-33.0); MEAN CORPUSCULAR HGB CONC 32.9 g/dl (32.0-36.5); MEAN CORPUSCULAR VOLUME 91.5 fl (80.0-96.0); MONO # 0.8 10^3/uL (0.0-0.8); MONO % 11.5 % (2.0-8.0); NEUTROPHILS # 4.2 10^3/uL (1.5-8.5); NEUTROPHILS % 63.3 % (36.0-66.0); PLATELET COUNT, AUTOMATED 165 10^3/uL (150-450); RED BLOOD COUNT 4.12 10^6/uL (4.30-6.10); WHITE BLOOD COUNT 6.6 10^3/uL (4.0-10.0)
[2024-02-19 15:45] LABS: PSA SCREENING 1.42 NG/ML (< 4.00)
[2024-02-19 15:48] LABS: ALBUMIN 3.7 G/DL (3.2-5.2); CALCIUM LEVEL 8.2 MG/DL (8.3-10.6); CREATININE FOR GFR 1.41 MG/DL (0.70-1.30); GLOMERULAR FILTRATION RATE 51.6 (>42); POTASSIUM SERUM 3.8 MMOL/L (3.5-5.1); TOTAL PROTEIN 6.4 G/DL (5.7-8.2)
[2024-02-19 15:49] LABS: FERRITIN 116.3 NG/ML (10.5-307.3)
== END ==
LOC: M PLALAB 09:26
PROVIDERS: ATTEND Family Medicine
DX: Z12.5 Encounter for screening for malignant neoplasm of prostate (principal); N18.31 Chronic kidney disease, stage 3a; D50.9 Iron deficiency anemia, unspecified; K76.0 Fatty (change of) liver, not elsewhere classified

== ENCOUNTER → 2024-04-07 | Outpatient (CLI) | payer BC, MEDICARE ==
[2024-04-07 15:55] LABS: INR 2.48; PROTHROMBIN TIME 25.9 SECONDS (12.5-14.5)
== END ==
LOC: M PLALAB 11:40
PROVIDERS: ATTEND Internal Medicine Cardiovascular Disease
DX: Z95.2 Presence of prosthetic heart valve (principal)

== ENCOUNTER → 2024-07-23 | Outpatient (CLI) | payer BC, MEDICARE ==
[2024-07-23 09:36] LABS: BASO # 0.1 10^3/uL (0.0-0.2); BASO % 0.5 % (0.0-1.0); EOS # 0.3 10^3/uL (0.0-0.5); EOS % 2.7 % (0.0-3.0); HEMATOCRIT 37.3 % (42.0-52.0); HEMOGLOBIN 12.6 g/dl (13.5-17.5); LYMPH # 1.6 10^3/uL (1.5-5.0); LYMPH % 16.9 % (24.0-44.0); MEAN CORPUSCULAR HEMOGLOBIN 29.5 pg (27.0-33.0); MEAN CORPUSCULAR HGB CONC 33.8 g/dl (32.0-36.5); MEAN CORPUSCULAR VOLUME 87.4 fl (80.0-96.0); NEUTROPHILS # 6.3 10^3/uL (1.5-8.5); NEUTROPHILS % 68.6 % (36.0-66.0); PLATELET COUNT, AUTOMATED 193 10^3/uL (150-450); RED BLOOD COUNT 4.27 10^6/uL (4.30-6.10); WHITE BLOOD COUNT 9.2 10^3/uL (4.0-10.0)
[2024-07-23 09:51] LABS: INR 2.18; PARTIAL THROMBOPLASTIN TIME 46.4 SECONDS (24.8-34.2); PROTHROMBIN TIME 24.4 SECONDS (12.5-14.5)
[2024-07-23 10:08] LABS: ALBUMIN 3.8 G/DL (3.2-5.2); ALKALINE PHOSPHATASE 106 U/L (40-129); ALT/SGPT 12 U/L (7.0-40); AST/SGOT 20 U/L (<34); BLOOD UREA NITROGEN 18 MG/DL (9-23); CALCIUM LEVEL 9.1 MG/DL (8.3-10.6); CARBON DIOXIDE LEVEL 32 MMOL/L (20-31); CHLORIDE LEVEL 105 MMOL/L (98-107); CREATININE FOR GFR 1.31 MG/DL (0.70-1.30); GLOMERULAR FILTRATION RATE 56.2 (>42); GLUCOSE, FASTING 98 MG/DL (74-106); POTASSIUM SERUM 4.5 MMOL/L (3.5-5.1); SODIUM LEVEL 141 MMOL/L (136-145); TOTAL PROTEIN 7.2 G/DL (5.7-8.2)
[2024-07-23 10:09] LABS: FERRITIN 55.3 NG/ML (10.5-307.3)
== END ==
LOC: M PLALAB 08:53
PROVIDERS: ATTEND Family Medicine
DX: D50.9 Iron deficiency anemia, unspecified (principal); N18.31 Chronic kidney disease, stage 3a; Z12.5 Encounter for screening for malignant neoplasm of prostate

== ENCOUNTER 2025-05-27 15:18 | Emergency (ER) | payer BC, MEDICARE ==
[~2025-05-27] VITALS: Ht 170.2 cm; Wt 78.9 kg
[~2025-05-27 15:18] MED LIST changes: -AMBI5TAB PO; +FLUO0.1C7 TOP; -FLUO1CRE4 TOP; +ZOLP-532 PO; -ZOLP5TAB PO; +ZOLP5TAB9 PO
[2025-05-27 17:52] VITALS: BP 126/74; TEMP 97.6; O2SAT 96
== END 2025-05-27 17:54 | disposition home or self-care (01) ==
LOC: M ED 15:18
DX: S60.212A Contusion of left wrist, initial encounter (principal); Y92.9 Unspecified place or not applicable; Y93.9 Activity, unspecified; Y99.9 Unspecified external cause status; W01.0XXA Fall on same level from slipping, tripping and stumbling without subsequent striking against object, initial encounter; I25.119 Atherosclerotic heart disease of native coronary artery with unspecified angina pectoris; Z88.8 Allergy status to other drugs, medicaments and biological substances; Z79.1 Long term (current) use of non-steroidal anti-inflammatories (NSAID); Z79.899 Other long term (current) drug therapy; Z79.01 Long term (current) use of anticoagulants

== ENCOUNTER → 2025-05-31 | Outpatient (CLI) | payer BC, MEDICARE ==
[2025-05-31 16:25] LABS: PLATELET COUNT, AUTOMATED 297 10^3/uL (150-450)
[2025-05-31 17:35] LABS: VITAMIN B12 LEVEL 760.0 PG/ML (211-911)
[2025-05-31 17:42] LABS: ALT/SGPT 13.0 U/L (7.0-40); AST/SGOT 33.0 U/L (<34); CALCIUM LEVEL 8.5 MG/DL (8.3-10.6); CARBON DIOXIDE LEVEL 30.0 MMOL/L (20-31); CHLORIDE LEVEL 94.0 MMOL/L (98-107); CREATININE FOR GFR 1.34 MG/DL (0.70-1.30); GLOMERULAR FILTRATION RATE 53.6 (>35); POTASSIUM SERUM 4.4 MMOL/L (3.5-5.1); SODIUM LEVEL 133.0 MMOL/L (136-145)
[2025-05-31 18:14] LABS: APPEARANCE, URINE CLEAR (CLEAR); BACTERIA, URINE AUTO NEGATIVE (NEGATIVE); BILIRUBIN, URINE AUTO NEGATIVE (NEGATIVE); BLOOD, URINE BLOOD 1+ (NEGATIVE); GLUCOSE, URINE (UA) AUTO NEGATIVE (NEGATIVE); KETONE, URINE AUTO NEGATIVE (NEGATIVE); LEUKOCYTE ESTERASE, URINE AUTO NEGATIVE (NEGATIVE); NITRITE, URINE AUTO NEGATIVE (NEGATIVE); PROTEIN, URINE AUTO NEGATIVE (NEGATIVE); RBC, URINE AUTO 9 /HPF (0-3); SPECIFIC GRAVITY URINE AUTO 1.012 (1.002-1.035); SQUAMOUS EPITHELIAL CELL UR AU 0 /HPF (0-6); UROBILINOGEN, URINE AUTO 4.0 mg/dL (0.0-2.0); WBC, URINE AUTO 2 /HPF (0-3)
== END ==
LOC: M LAB 15:28
DX: K74.00 Hepatic fibrosis, unspecified (principal); R41.82 Altered mental status, unspecified; D50.9 Iron deficiency anemia, unspecified

== ENCOUNTER 2025-06-04 15:29 | Inpatient (IN) | payer BC, MEDICARE ==
[~2025-06-04] VITALS: Ht 170.2 cm; Wt 82.0 kg
[2025-06-04 16:26] LABS: BASO # 0.0 10^3/uL (0.0-0.2); BASO % 0.5 % (0.0-1.0); EOS # 0.1 10^3/uL (0.0-0.5); EOS % 1.3 % (0.0-3.0); LYMPH # 1.0 10^3/uL (1.5-5.0); LYMPH % 12.4 % (24.0-44.0); MONO # 1.2 10^3/uL (0.0-0.8); MONO % 13.8 % (2.0-8.0); NEUTROPHILS # 6.0 10^3/uL (1.5-8.5); NEUTROPHILS % 71.6 % (36.0-66.0); PLATELET COUNT, AUTOMATED 307 10^3/uL (150-450)
[2025-06-04 16:52] LABS: INR 3.91
[2025-06-04 17:25] LABS: ALT/SGPT 16.0 U/L (7.0-40); AST/SGOT 55.0 U/L (<34); CALCIUM LEVEL 8.5 MG/DL (8.3-10.6); CARBON DIOXIDE LEVEL 30.0 MMOL/L (20-31); CHLORIDE LEVEL 93.0 MMOL/L (98-107); CK-MB VALUE MASS 4.2 NG/ML (<3.6); CREATININE FOR GFR 1.23 MG/DL (0.70-1.30); GLOMERULAR FILTRATION RATE 59.4 (>35); POTASSIUM SERUM 3.8 MMOL/L (3.5-5.1); SODIUM LEVEL 133.0 MMOL/L (136-145)
[2025-06-04 17:31] LABS: CPK CREATINE PHOSPHOKINASE 690.0 U/L (46-171); MB/CK RELATIVE INDEX 0.6 (< OR =4)
[2025-06-04 18:19] LABS: CK-MB VALUE MASS 2.7 NG/ML (<3.6)
[2025-06-04 18:24] LABS: KETONE, URINE AUTO RFX NEGATIVE (NEGATIVE); LEUKOCYTE ESTERASE UR AUTO RFX NEGATIVE (NEGATIVE); NITRITE, URINE AUTO RFX NEGATIVE (NEGATIVE); RBC, URINE AUTO RFX 17 /HPF (0-3); SQUAM EPITHELIAL CELL UR AURFX 0 /HPF (0-6); WBC, URINE AUTO RFX 1 /HPF (0-3)
[2025-06-04 18:26] LABS: CPK CREATINE PHOSPHOKINASE 586.0 U/L (46-171); MB/CK RELATIVE INDEX 0.46 (< OR =4)
[2025-06-04] MEDS: AZITHROMYCIN 250 MG TABLET PO ONE (19:52)
[2025-06-04] MEDS: cefTRIAXone SOD 1 GM in DEXTROSE 5% (D5W) ADV/MINI-BAG 50 ML IV ONE (19:52)
[2025-06-04] MEDS: RAMELTEON 8 MG TAB PO PRN (23:22)
[2025-06-05 07:18] LABS: PLATELET COUNT, AUTOMATED 238 10^3/uL (150-450)
[2025-06-05 07:33] LABS: INR 3.45
[2025-06-05 07:50] LABS: CALCIUM LEVEL 8.1 MG/DL (8.3-10.6); CARBON DIOXIDE LEVEL 30.0 MMOL/L (20-31); CHLORIDE LEVEL 96.0 MMOL/L (98-107); CREATININE FOR GFR 1.02 MG/DL (0.70-1.30); GLOMERULAR FILTRATION RATE 74.3 (>35); POTASSIUM SERUM 3.5 MMOL/L (3.5-5.1); SODIUM LEVEL 134.0 MMOL/L (136-145)
[2025-06-05] MEDS: FLUTICASONE PROPIONATE 0.05% NASAL SPRAY 16 GM NARES SCH (09:00)
[2025-06-05] MEDS ORDERED: GABAPENTIN 300 MG CAP PO SCH (09:00)
[2025-06-05] MEDS ORDERED: MED REC IN PROGRESS XX SCH (09:00)
[2025-06-05] MEDS ORDERED: FUROSEMIDE 40 MG/4 ML VIAL IV SCH (09:00)
[2025-06-05] MEDS: DOXYCYCLINE HYCLATE 100 MG TABLET PO SCH (09:29)
[2025-06-05] MEDS: LIDOCAINE 5% PATCH TD SCH (09:30)
[2025-06-05] MEDS: NS (Normal Saline) 0.9% 1,000 ML IV SCH (09:41)
[2025-06-05] MEDS ORDERED: ALBUTEROL SULFATE 2.5 MG/0.5 ML INH CONCENTRATE NEB SOLN NEB PRN (09:45)
[2025-06-05] MEDS ORDERED: LIDO1ADH93 TD (10:41)
[2025-06-05] MEDS ORDERED: SENN-188 PO (10:41)
[2025-06-05] MEDS ORDERED: ZOLP-533 PO (10:41)
[2025-06-05] MEDS ORDERED: FLUT15.820 NARES (10:41)
[2025-06-05] MEDS ORDERED: PANT40TA29 PO (10:41)
[2025-06-05] MEDS ORDERED: AMIT8CAP4 PO (10:41)
[2025-06-05] MEDS ORDERED: ATIV1TAB10 PO (10:41)
[2025-06-05] MEDS ORDERED: DULO1CAP6 PO (10:41)
[2025-06-05] MEDS ORDERED: MUCI600T31 PO (10:41)
[2025-06-05] MEDS ORDERED: DICL20GE TOP (10:41)
[2025-06-05] MEDS ORDERED: WARF-20 PO ×2 (10:41)
[2025-06-05] MEDS ORDERED: BUTR1DIS TOP (10:41)
[2025-06-05] MEDS ORDERED: SUCR1TA PO (10:41)
[2025-06-05] MEDS ORDERED: CALC0.5C6 PO (10:41)
[2025-06-05] MEDS ORDERED: PREG100C2 PO (10:41)
[2025-06-05] MEDS ORDERED: HOME MED LIST COMPLETE! XX SCH (10:45)
[2025-06-05] MEDS: LOSARTAN 50 MG TABLET PO SCH (10:56)
[2025-06-05] MEDS: SENNA 8.6 MG TAB PO PRN (10:56)
[2025-06-05] MEDS: MIRALAX *UNIT DOSE* 17 GM PACKET PO PRN (10:56)
[2025-06-05] MEDS ORDERED: GADOXETATE DISODIUM 2.5 MMOL/10 ML VIAL As Ordered ONE (12:20)
[2025-06-05] MEDS: ASPIRIN 81 MG ENTERIC TABLET PO SCH (14:22)
[2025-06-05 17:51] VITALS: BP 133/59; TEMP 97.9; O2SAT 95
[2025-06-05 19:15] VITALS: BP 130/58; TEMP 98.1; O2SAT 94
[2025-06-05] MEDS: cefTRIAXone SOD 2 GM in DEXTROSE 5% (D5W) ADV/MINI-BAG 50 ML IV SCH (21:06)
[2025-06-05] MEDS: GABAPENTIN 100 MG CAP PO SCH (21:21)
[2025-06-05] MEDS: ACETAMINOPHEN 500 MG TAB PO SCH (21:26)
[2025-06-06 04:34] VITALS: BP 153/78; TEMP 97.9; O2SAT 94
[2025-06-06] MEDS: PANTOPRAZOLE 40MG TAB PO ONE (05:49)
[2025-06-06 07:39] LABS: INR 3.16
[2025-06-06 07:47] LABS: PLATELET COUNT, AUTOMATED 242 10^3/uL (150-450)
[2025-06-06 08:06] LABS: ALT/SGPT 13.0 U/L (7.0-40); AST/SGOT 57.0 U/L (<34); CALCIUM LEVEL 8.4 MG/DL (8.3-10.6); CARBON DIOXIDE LEVEL 28.0 MMOL/L (20-31); CHLORIDE LEVEL 94.0 MMOL/L (98-107); CREATININE FOR GFR 0.95 MG/DL (0.70-1.30); GLOMERULAR FILTRATION RATE 80.9 (>35); POTASSIUM SERUM 3.9 MMOL/L (3.5-5.1); SODIUM LEVEL 132.0 MMOL/L (136-145)
[2025-06-06] MEDS: UNRESOLVED PATIENT OWN MED ORDER XX SCH (09:00)
[2025-06-06] MEDS: CALCITRIOL 0.25 MCG CAP (S0169) PO SCH (09:00)
[2025-06-06 09:04] LABS: LDH LACTATE DEHYDROGENASE 703.0 U/L (120-246)
[2025-06-06] MEDS ORDERED: LIDOCAINE 5% PATCH TD PRN (12:35)
[2025-06-06] MEDS ORDERED: SUCRALFATE 1 GM TAB PO PRN (12:35)
[2025-06-06] MEDS: NS (Normal Saline) 0.9% 1,000 ML IV SCH (12:59)
[2025-06-06] MEDS: EZETIMIBE 10 MG TABLET PO SCH (13:40)
[2025-06-06] MEDS: FLUTICASONE PROPIONATE 0.05% NASAL SPRAY 16 GM NARES SCH (13:40)
[2025-06-06 14:00] VITALS: BP 149/81; TEMP 97.9; O2SAT 94
[2025-06-06] MEDS ORDERED: WARFARIN SOD 4MG TAB PO SCH (17:00)
[2025-06-06] MEDS ORDERED: PROHANCE 279.3MG/ML 15ML VIAL As Ordered ONE (17:13)
[2025-06-06] MEDS: SIMVASTATIN 40 MG TAB PO SCH (20:08)
[2025-06-06] MEDS: LORazepam 0.5 MG TAB PO SCH (20:08)
[2025-06-06] MEDS: guaiFENesin ER TABLET 600 MG TAB PO SCH (20:08)
[2025-06-06] MEDS: CALCIUM CARBONATE 500 MG CHEW U/D PO PRN (20:12)
[2025-06-06 20:29] VITALS: BP 135/61; TEMP 97.2; O2SAT 95
[2025-06-07 04:31] VITALS: BP 136/83; TEMP 97
[2025-06-07 07:11] LABS: PLATELET COUNT, AUTOMATED 234 10^3/uL (150-450)
[2025-06-07 07:30] LABS: INR 3.28
[2025-06-07 07:35] LABS: ALT/SGPT 13.0 U/L (7.0-40); AST/SGOT 38.0 U/L (<34); CALCIUM LEVEL 8.0 MG/DL (8.3-10.6); CARBON DIOXIDE LEVEL 27.0 MMOL/L (20-31); CHLORIDE LEVEL 95.0 MMOL/L (98-107); CREATININE FOR GFR 0.99 MG/DL (0.70-1.30); GLOMERULAR FILTRATION RATE 77.0 (>35); POTASSIUM SERUM 3.7 MMOL/L (3.5-5.1); SODIUM LEVEL 131.0 MMOL/L (136-145)
[2025-06-07] MEDS: PANTOPRAZOLE 40MG TAB PO SCH (08:44)
[2025-06-07] MEDS: MORPHINE 4 MG/ML 1 ML VIAL IV ONE (08:47)
[2025-06-07] MEDS ORDERED: PERCOCET 5MG/325MG TAB PO PRN (12:15)
[2025-06-07] MEDS: PERCOCET 5MG/325MG TAB PO PRN (12:37)
[2025-06-07] MEDS ORDERED: BISACODYL 10 MG SUPP PR PRN (13:20)
[2025-06-07] MEDS ORDERED: ATROPINE SULFATE 1% OPHTH SOLN 2 ML BTL SL PRN (13:20)
[2025-06-07] MEDS ORDERED: ACETAMINOPHEN 325 MG TAB PO PRN (13:20)
[2025-06-07] MEDS ORDERED: HYOSCYAMINE SULFATE 0.125 MG SUBL TABLET PO PRN (13:20)
[2025-06-07] MEDS ORDERED: FLEET ENEMA PR PRN (13:20)
[2025-06-07] MEDS: MORPHINE 10 MG/0.5 ML ORAL CONCENTRATE SOLUTION U/D SL PRN ×2 (14:24→17:50)
[2025-06-08] MEDS: MORPHINE 10 MG/0.5 ML ORAL CONCENTRATE SOLUTION U/D SL SCH (13:07)
[2025-06-08] MEDS: MORPHINE 10 MG/0.5 ML ORAL CONCENTRATE SOLUTION U/D SL PRN (15:22)
[2025-06-08] MEDS: LORazepam 1 MG TAB PO PRN (17:53)
[2025-06-08] MEDS: LORazepam 1 MG TAB PO SCH (21:27)
[2025-06-08 21:28] VITALS: BP 150/95
[2025-06-09 12:00] VITALS: BP 144/72; TEMP 96.8
[2025-06-09] MEDS: BUPRENORPHINE 15 MCG/HR TOP SCH (13:54)
[2025-06-10] MEDS: MORPHINE 10 MG/0.5 ML ORAL CONCENTRATE SOLUTION U/D SL SCH (12:12)
[2025-06-10] MEDS: MORPHINE 10 MG/0.5 ML ORAL CONCENTRATE SOLUTION U/D SL PRN (17:44)
[2025-06-12] MEDS: ONDANSETRON 4MG ORAL DISINTEGRATING TAB PO PRN (20:48)
[2025-06-13] MEDS ORDERED: DEXA2TA PO (08:17)
[2025-06-13] MEDS ORDERED: MORP1SOL SL (08:17)
[2025-06-13] MEDS ORDERED: GABA-1171 PO (08:17)
[2025-06-13] MEDS ORDERED: HYOS125TA PO (08:17)
[2025-06-13] MEDS ORDERED: ATIV1TAB7 PO (08:17)
[2025-06-13] MEDS ORDERED: BUPRENORPHINE 15 MCG/HR TD SCH (09:00)
== END 2025-06-13 10:00 | disposition hospice, inpatient (51) | DRG 52 ==
LOC: M ED 15:29 → M ED INP 06-05 03:30 → M MS5PR 06-05 17:50
PROVIDERS: ADMIT Student in an Organized Health Care Education/Training Program; ATTEND Family Medicine
DX: G93.41 Metabolic encephalopathy (principal); J15.69 Pneumonia due to other Gram-negative bacteria; J91.0 Malignant pleural effusion; C79.31 Secondary malignant neoplasm of brain; C78.7 Secondary malignant neoplasm of liver and intrahepatic bile duct; R64 Cachexia; C79.51 Secondary malignant neoplasm of bone; I48.0 Paroxysmal atrial fibrillation; D64.9 Anemia, unspecified; C34.91 Malignant neoplasm of unspecified part of right bronchus or lung; F03.90 Unspecified dementia, unspecified severity, without behavioral disturbance, psychotic disturbance, mood disturbance, and anxiety; N18.31 Chronic kidney disease, stage 3a; Z51.5 Encounter for palliative care; Z66 Do not resuscitate; R29.6 Repeated falls; R93.2 Abnormal findings on diagnostic imaging of liver and biliary tract; I12.9 Hypertensive chronic kidney disease with stage 1 through stage 4 chronic kidney disease, or unspecified chronic kidney disease; R91.8 Other nonspecific abnormal finding of lung field; I25.10 Atherosclerotic heart disease of native coronary artery without angina pectoris; E78.5 Hyperlipidemia, unspecified; K21.9 Gastro-esophageal reflux disease without esophagitis; Z95.2 Presence of prosthetic heart valve; Z85.59 Personal history of malignant neoplasm of other urinary tract organ; Z79.82 Long term (current) use of aspirin; Z79.01 Long term (current) use of anticoagulants; Z79.899 Other long term (current) drug therapy; Z88.8 Allergy status to other drugs, medicaments and biological substances; Z86.73 Personal history of transient ischemic attack (TIA), and cerebral infarction without residual deficits

== ENCOUNTER 2025-06-10 13:00 | Outpatient (RCR) | payer BC, MEDICARE ==
[~2025-06-10 13:00] MED LIST changes: +AMIT8CAP4 PO; +ATIV1TAB10 PO; +BUTR1DIS TOP; +CALC0.5C6 PO; +DICL20GE TOP; +DULO1CAP6 PO; +FLUT15.820 NARES; +LIDO1ADH93 TD; +MUCI600T31 PO; +PANT40TA29 PO; +PREG100C2 PO; +SENN-188 PO; +SUCR1TA PO; +WARF-20 PO; +ZOLP-533 PO
[2025-06-13] MEDS ORDERED: ATIV1TAB7 PO (08:17)
[2025-06-13] MEDS ORDERED: HYOS125TA PO (08:17)
[2025-06-13] MEDS ORDERED: MORP1SOL SL (08:17)
[2025-06-13] MEDS ORDERED: GABA-1171 PO (08:17)
[2025-06-13] MEDS ORDERED: DEXA2TA PO (08:17)
== END 2025-06-14 ==
LOC: M ONCR 13:00
PROVIDERS: ATTEND General Practice
DX: Z51.0 Encounter for antineoplastic radiation therapy (principal); C79.51 Secondary malignant neoplasm of bone